=== PATIENT | female | born 1950 | race Caucasian/White ===

== ENCOUNTER 2020-06-27 12:38 | Outpatient (CLI) | payer MEDICARE, OTHER, SELFPAY ==
--- NOTE | ~2020-06-27 | DEXA_ITS ---
Bone Density Report Name: Lesia Webb Age: 70 Sex: Female Ethnicity: White Date of : 1950 Indication: postmenopausal; height loss; hysterectomy; Referring Provider: Lucia Umana Study: Bone densitometry was performed. Exam Date: June 27, 2020 Accession number: [id number] Bone Density: Region BMD T-score Z-score Classification AP Spine (L1, L2) 0.825 -1.4 0.6 Osteopenia Femoral Neck (Left) 0.724 -1.1 0.7 Osteopenia Total Hip (Left) 0.824 -1.0 0.6 Normal Total Hip Bilateral Avg 0.807 -1.2 0.5 Osteopenia Femoral Neck (Right) 0.719 -1.2 0.7 Osteopenia Total Hip (Right) 0.789 -1.3 0.3 Osteopenia World Health Organization criteria for BMD impression classify patients as: Normal (T-score at or above -1.0), Osteopenia (T-score between -1.0 and -2.5), or Osteoporosis (T-score at or below -2.5). 10-year Fracture Risk: FRAX not reported because: Treated for osteoporosis Clinical Information Provided by Patient: Is being treated for osteoporosis Has the following medical conditions: Hysterectomy Patient maximum height was 62 Menopause Age: 48 No regular weight bearing exercise Drinks caffeinated beverages Onset of menses at age 11 Number of children 2 Impression: The patient has low bone mass, based on the Total Spine T-score. Discussion: It is important to ask patients whether they are taking their medications and to encourage continued and appropriate compliance with their osteoporosis therapies to reduce fracture risk. It is also important to review their risk factors and encourage appropriate calcium and vitamin D intakes, exercise, fall prevention and other lifestyle measures. Follow-Up: Consider a repeat BMD and Vertebral Fracture Assessment (VFA) exam in 2 years or sooner if medically necessary, to reassess this patient's status. Reported by: [facility] on 06/27/2020 1:04:00 PM. Reviewed, dictated and finalized at location AJuan Pablo CHAVEZ
== END 2020-06-27 12:39 | disposition home or self-care (01) ==
LOC: ANHIMG 12:44
PROVIDERS: Visit Provider Internal Medicine Endocrinology, Diabetes & Metabolism
DX: Z78.0 Asymptomatic menopausal state (principal); M85.852 Other specified disorders of bone density and structure, left thigh; M85.851 Other specified disorders of bone density and structure, right thigh; M85.88 Other specified disorders of bone density and structure, other site
CPT/HCPCS: 77080

== ENCOUNTER 2020-12-27 12:06 | Outpatient (CLI) | payer MEDICARE, OTHER, SELFPAY ==
[2020-12-27 12:56] LABS: Cholesterol 202 mg/dL (0-200); HDL Direct 92 mg/dL; Triglycerides 108 mg/dL (<150)
[2020-12-27 13:07] LABS: LDL Cholesterol Direct 83 mg/dL
== END 2020-12-27 12:07 | disposition home or self-care (01) ==
PROVIDERS: Visit Provider Internal Medicine Cardiovascular Disease
DX: E78.5 Hyperlipidemia, unspecified (principal)
CPT/HCPCS: 36415; 80061

== ENCOUNTER 2023-03-04 15:04 | Outpatient (CLI) | payer MEDICARE, OTHER, SELFPAY ==
[2023-03-04 17:42] LABS: Albumin Level 4.3 g/dL (3.5-5.1); Anion Gap 9 mmol/L (8-16); Blood Urea Nitrogen 19 mg/dL (7-17); Calcium 9.5 mg/dL (8.4-10.2); Carbon Dioxide 24 mmol/L (22-30); Chloride 107 mmol/L (98-107); Estimated Glomerular Filt Rate > 60; Glucose 89 mg/dL (65-110); Phosphorus 3.2 mg/dL (2.5-4.5); Potassium 4.1 mmol/L (3.4-5.0); Sodium 140 mmol/L (137-145)
[2023-03-04 17:55] LABS: Parathyroid Intact 96.5 pg/mL (7.5-53.5)
[2023-03-04 18:09] LABS: Free T4 Free Thyroxine 1.84 ng/mL (0.78-2.19); Vitamin D 25 Hydroxy 65.1 ng/mL
[2023-03-04 18:13] LABS: Thyroid Stimulating Hormone < 0.015 uIU/mL (0.465-4.680)
[2023-03-04 18:45] LABS: Hemoglobin A1C 5.4 % (<5.7)
== END 2023-03-04 15:05 | disposition home or self-care (01) ==
LOC: ANHWCLAB 15:06
PROVIDERS: Visit Provider Internal Medicine Endocrinology, Diabetes & Metabolism
DX: E03.9 Hypothyroidism, unspecified (principal); M81.0 Age-related osteoporosis without current pathological fracture; R79.89 Other specified abnormal findings of blood chemistry; Z83.3 Family history of diabetes mellitus
CPT/HCPCS: 36415; 80069; 82306; 83036; 83970; 84439; 84443

== ENCOUNTER 2023-03-10 10:13 | Outpatient (CLI) | payer MEDICARE, OTHER, SELFPAY ==
[2023-03-10 11:41] LABS: Creatinine Urine 73.9 mg/dL
[2023-03-10 11:55] LABS: Creatinine 24 Hour Urine 0.8 gm/24 (0.8-1.8); Total Volume 24 Hour Urine 1200 ml
[2023-03-15 14:05] LABS: Total Volume 1200 mL; Urine Calcium 4.7 mg/dL
== END 2023-03-10 10:14 | disposition home or self-care (01) ==
LOC: ANHLAB 10:15
PROVIDERS: Visit Provider Internal Medicine Endocrinology, Diabetes & Metabolism
DX: E03.9 Hypothyroidism, unspecified (principal); M81.0 Age-related osteoporosis without current pathological fracture; R79.89 Other specified abnormal findings of blood chemistry
CPT/HCPCS: 81050; 82340; 82570

== ENCOUNTER 2023-03-17 09:36 | Outpatient (CLI) | payer MEDICARE, OTHER, SELFPAY ==
--- NOTE | ~2023-03-17 | NM_ITS ---
EXAMINATION: NM parathyroid w imaging DATE: 03/17/2023 14:37 INDICATION: Hyperparathyroidism. TECHNIQUE: 18.77 mCi Tc99m sestamibi was administered intravenously. Anterior images of the neck were obtained immediately and at 3 hours. SPECT images of the neck were obtained. COMPARISON: None. FINDINGS: There is no focus of persistent activity in the area of the thyroid or mediastinum to sugge st parathyroid adenoma. IMPRESSION: 1. No evidence of a parathyroid adenoma. Reviewed, dictated and finalized at location E. UME RENTAL CLERK
== END 2023-03-17 09:37 | disposition home or self-care (01) ==
PROVIDERS: Visit Provider Internal Medicine Endocrinology, Diabetes & Metabolism
DX: E03.9 Hypothyroidism, unspecified (principal); M81.0 Age-related osteoporosis without current pathological fracture; R79.89 Other specified abnormal findings of blood chemistry
CPT/HCPCS: 78070; A9500

== ENCOUNTER 2023-07-02 10:55 | Outpatient (CLI) | payer MEDICARE, OTHER, SELFPAY ==
[2023-07-02 12:17] LABS: Thyroid Stimulating Hormone 0.235 uIU/mL (0.465-4.680)
[2023-07-02 12:40] LABS: Free T4 Free Thyroxine 1.47 ng/mL (0.78-2.19)
== END 2023-07-02 10:56 | disposition home or self-care (01) ==
LOC: ANHLAB 11:02
PROVIDERS: Visit Provider Internal Medicine Endocrinology, Diabetes & Metabolism
DX: E03.9 Hypothyroidism, unspecified (principal)
CPT/HCPCS: 36415; 84439; 84443

== ENCOUNTER 2023-07-13 12:48 | Outpatient (CLI) | payer MEDICARE, OTHER, SELFPAY ==
[2023-07-13 13:36] LABS: Albumin Level 4.5 g/dL (3.5-5.1); Anion Gap 7 mmol/L (4-12); Blood Urea Nitrogen 17 mg/dL (7-17); Calcium 10.1 mg/dL (8.4-10.2); Carbon Dioxide 26 mmol/L (22-30); Chloride 103 mmol/L (98-107); Estimated Glomerular Filt Rate 54; Glucose 89 mg/dL (65-110); Phosphorus 3.6 mg/dL (2.5-4.5); Potassium 3.9 mmol/L (3.4-5.0); Sodium 136 mmol/L (137-145)
[2023-07-13 13:43] LABS: Creatinine Urine 32.9 mg/dL
[2023-07-13 13:47] LABS: Creatinine 24 Hour Urine 0.7 gm/24 (0.8-1.8); Total Volume 24 Hour Urine 2200 ml
[2023-07-13 13:48] LABS: Parathyroid Intact 43.1 pg/mL (7.5-53.5)
[2023-07-13 14:07] LABS: Vitamin D 25 Hydroxy 59.8 ng/mL
[2023-07-15 15:03] LABS: Albumin 4.1 g/dL (3.8-4.8); Alpha 1 Globulin 0.3 g/dL (0.2-0.3); Alpha 2 Globulin 0.7 g/dL (0.5-0.9); Beta 1 Globulin 0.5 g/dL (0.4-0.6); Gamma Globulin 1.1 g/dL (0.8-1.7)
[2023-07-15 15:13] LABS: Creatinine, Random Urine 35 mg/dL (20-275); Total Protein/Creatinine Ratio NOTE mg/g creat (24-184)
[2023-07-18 20:53] LABS: Osteocalcin 19 ng/mL (8-32)
[2023-07-30 11:28] LABS: Total Volume 2200
== END 2023-07-13 12:49 | disposition home or self-care (01) ==
PROVIDERS: Visit Provider Internal Medicine Endocrinology, Diabetes & Metabolism
DX: E03.9 Hypothyroidism, unspecified (principal); E55.9 Vitamin D deficiency, unspecified; M81.0 Age-related osteoporosis without current pathological fracture; R79.89 Other specified abnormal findings of blood chemistry; Q78.2 Osteopetrosis
CPT/HCPCS: 36415; 80069; 81050; 82306; 82340; 82530; 82570; 83937; 83970; 84155; 84156; 84165; 84166

== ENCOUNTER 2023-09-24 13:09 | Outpatient (CLI) | payer MEDICARE, OTHER, SELFPAY ==
[2023-09-24 15:16] LABS: Free T4 Free Thyroxine 1.25 ng/mL (0.78-2.19)
[2023-09-24 15:34] LABS: Thyroid Stimulating Hormone 0.923 uIU/mL (0.465-4.680)
== END 2023-09-24 13:10 | disposition home or self-care (01) ==
PROVIDERS: Visit Provider Internal Medicine Endocrinology, Diabetes & Metabolism
DX: E03.9 Hypothyroidism, unspecified (principal)
CPT/HCPCS: 36415; 84439; 84443

== ENCOUNTER 2023-12-28 08:47 | Outpatient (CLI) | payer MEDICARE, OTHER, SELFPAY ==
[2023-12-28 09:38] LABS: Albumin Level 4.6 g/dL (3.5-5.1); Anion Gap 10 mmol/L (4-12); Blood Urea Nitrogen 20 mg/dL (7-17); Calcium 9.7 mg/dL (8.4-10.2); Carbon Dioxide 25 mmol/L (22-30); Chloride 104 mmol/L (98-107); Estimated Glomerular Filt Rate 54; Glucose 90 mg/dL (65-110); Phosphorus 2.9 mg/dL (2.5-4.5); Sodium 139 mmol/L (137-145)
[2023-12-28 10:37] LABS: Free T4 Free Thyroxine 0.88 ng/mL (0.78-2.19); Vitamin D 25 Hydroxy 93.6 ng/mL
[2023-12-30 07:35] LABS: C-Peptide 2.84 ng/mL (0.80-3.85)
[2024-01-02 22:03] LABS: Osteocalcin 24 ng/mL (8-32)
== END 2023-12-28 08:48 | disposition home or self-care (01) ==
PROVIDERS: Visit Provider Internal Medicine Endocrinology, Diabetes & Metabolism
DX: R79.89 Other specified abnormal findings of blood chemistry (principal); E03.9 Hypothyroidism, unspecified; M81.0 Age-related osteoporosis without current pathological fracture
CPT/HCPCS: 36415; 80069; 82306; 83937; 84439; 84443; 84681

== ENCOUNTER 2024-07-10 13:10 | Outpatient (CLI) | payer MEDICARE, OTHER, SELFPAY ==
--- OUTSIDE RECORDS SUMMARY | 2024-07-10 14:27 | XMS_ITS | Clinical Summary ---
Author Organization [facility] Address [address] [place] [id number] Care Team Providers Care Soft Sugar Operator Head Name Role Phone Rufino Randolph MD Unavailable Marilee Carvalho MD Primary Care Provider [phone] Allergies Active Allergy Reactions Criticality Noted Date Comments Amoxicillin Rash Medium 12/30/2018 Cephalexin Rash Medium 12/30/2018 Codeine Stomach upset,Hypotension High 05/14/2022 Sulfa (Sulfonamide Antibiotics) Rash Medium 12/30/2018 Medications sertraline (ZOLOFT) 100 mg tablet Take 1 tablet (100 mg total) by mouth every morning 9 Active SYNTHROID 88 mcg tablet Take 1 tablet (88 mcg total) by mouth every other day Alternates with 100 mcg 9 Active cetirizine (ZyrTEC) 10 mg tablet Take 1 tablet (10 mg total) by mouth nightly 9 Active atorvastatin (LIPITOR) 80 mg tablet Take 1 tablet (80 mg total) by mouth daily. 90 tablet 3 9 Active Additional Information Patient taking differently:80 mg oralNightly, Informant: Self, Reported on 02/21/2024 fluticasone (FLONASE) 50 mcg/actuation nasal spray Administer 2 sprays into each nostril every morning Active multivit-mineral s/folic acid (ADULT MULTIVITAMIN GUMMIES ORAL) Take 2 tablets by mouth every morning. Active vit C/E/Zn/coppr/lut ein/zeaxan (PRESERVISION AREDS-2 ORAL) Take 1 tablet by mouth 2 (two) times a day. Active flaxseed 1,000 mg capsule Take 1,000 mg by mouth every morning. Active aspirin 81 mg enteric coated tablet [address] (PROTONIX) 40 mg EC tablet 3 Active cholecalciferol (VITAMIN D-3) 82157 unit capsule Take 1 capsule (10,000 Units total) by mouth daily Active calcium carbonate (TUMS) 500 mg (200 mg elemental calcium) chewable tablet Take 2 tablet/chew tab (1,000 mg total) by mouth daily Active calcium citrate (CALCITRATE) 950 mg (200 mg of elemental calcium) tablet Take 500 mg by mouth 2 (two) times a day Active romosozumab-aqqg (Evenity) 105 mg/1.17 mL subcutaneous syringe Inject 2.34 mL (210 mg total) under the skin once Active Active Problems Problem Noted Date Diagnosed Date Palpitations 12/27/2020 Ptosis of eyelid, left 05/13/2018 Overview (05/13/2018): Added automatically from request for surgery [id number] Primary osteoarthritis of left knee 04/26/2018 Preop cardiovascular exam 04/15/2018 Essential hypertension 04/15/2018 Hyperlipidemia LDL goal <100 04/15/2018 Hypothyroidism 04/15/2018 Coronary artery disease invo lving [place] coronary artery of [place] heart without angina pectoris 04/15/2018 Resolved Problems Problem Noted Date Diagnosed Date Resolved Date Class 1 obesity due to exces s calories without serious comorbidity with body mass index (BMI) of 34.0 to 34.9 in adult 04/15/201803/2020 Surgical History Surgery Date Site/Laterality Comments CARPAL TUNNEL RELEASE Right BUNIONECTOMY HYSTERECTOMY REPLACEMENT TOTAL KNEE Right TITUS FUNDOPLICATION REPLACEMENT TOTAL KNEE 04/26/2018 Left Medical History Medical History Date Comments Hypertension Hypertension Adiposity Obesity Hx Other Medical Arrhythmias (pr ob SVT/tachyarrhythmia) Hypothyroidism Hypothyroidism Hyperlipidemia Diverticulitis Anemia Cataracts, bilateral Anxiety and depression Family History Medical History Relation Name Comments Kidney cancer Father Stroke Mother Kidney cancer Sister Relation Name Status Comments Father (Age 59) Mother (Age 93) Sister Alive Social History Tobacco Use Types Packs/Day Years Used Date Smoking Tobacco: Never Smokeless Tobacco: Never Tobacco Cessation:Counseling Given: Not Answered Alcohol Use Standard Drinks/Week Comments No 0 (1 standard drink = 0.6 oz pur e alcohol) Comments Unknown Sex and Gender Information Value Date Recorded Sex Assigned at Not on file Legal Sex Female 2:21 AM DIGITAL LIBRARIAN Gender Identity Not on file Sexual Orientation Not on file Obstetrics History Last Filed Vital Signs Vital Sign Reading Time Taken Comments Blood Pressure 138/88 02/21/2024 11:12 AM DIGITAL LIBRARIAN Pulse 72 02/21/2024 9:42 AM DIGITAL LIBRARIAN Temperature - - Respiratory Rate - - Oxygen Saturation 99% 02/21/2024 9:42 AM DIGITAL LIBRARIAN Inhaled Oxygen Concentration - - Weight 76.7 kg (169 lb) 02/21/2024 9:42 AM DIGITAL LIBRARIAN Height 154.9 cm (5' 1 ) 02/21/2024 9:42 AM DIGITAL LIBRARIAN Body Mass Index 31.93 02/21/2024 9:42 AM DIGITAL LIBRARIAN Plan of Treatment Health Maintenance Due Date Last Done Comments Colon Cancer Screening-Colonoscopy 1950 Depression Screening 1950 Fall Risk Assessment 1950 Hepatitis C Screening 1950 Hepatitis B Screening 1967 Well Visit 65+ 2014 Covid-19 Vaccine (2023-2 5 season) 2023 02/17/2021, 05/29/2020, 05/01/2020 Osteoporosis Screening-Bone Density Scan 05/25/2026 05/25/2024 DTaP/Tdap/Td Vaccine (3 - Td or Tdap) 04/15/2032 04/15/2022, 03/24/2012, 03/06/2002 Pneumococcal vaccine 65+ Completed 10/19/2014, 03/30 Zoster Vaccine Completed 06/26/2020, 02/26, 02/22/2012 Influenza Vaccine Completed 03/16/2024, , 01/09/2020, Additional history exists Insurance MEDICARE FOR LIFE MEDICARE FOR LIFE MEDICARE FOR LIFE MEDICARE FOR LIFE Care Teams Soft Sugar Operator Head Relationship Specialty Start [place] [address] [place] [address] PCP - General Internal Medicine 06/19/24 Rufino Randolph MD Referring Physician Internal Medicine 12/13/17
--- OUTSIDE RECORDS SUMMARY | 2024-07-10 14:27 | XMS_ITS | Clinical Summary ---
Author Organization [facility] Address [address] [place] [address] Care Team Providers Care Retail Merchandising Specialist Name Role Phone Juan R Sosa MD Unavailable Unavailable Marilee Carvalho MD Primary Care Provider [phone] Allergies Active Allergy Reactions Criticality Noted Date Comments Amoxicillin Rash Low 12/30/2018 Codeine Other (see comment) 05/13/2023 Hypotension Cephalexin Rash Low 12/30/2018 Sulfa Antibiotics Rash Low 12/30/2018 Medications Multiple Vitamins-Calcium (ONE-A-DAY WOMENS FORMULA) Tab Take 2 tablets by mouth daily. Active Flaxseed, Linseed, (FLAXSEED OIL) 1000 MG Cap Take 1,000 mg by mouth daily. Active Multiple Vitamins-Minerals (PRESERVISION AREDS 2) Cap Take 2 capsules by mouth daily. Active calcium citrate 950 (200 CA) MG Tab tablet Take 500 mg by mouth 2 (two) times daily. Active calcium carbonate (TUMS) 500 MG chewable tablet Chew 2 tablets (1,000 mg total) by mouth daily. Active BONE STIMULATOR, DME,Indications:F usion of spine of thoracolumbar region,Osteoporos is, unspecified osteoporosis type, unspecified pathological fracture presence Wear 4 hours daily. Can break up into multiple sessions totaling 4 hours. 1 Device 06/07/19 24 Active Additional Information Patient not taking.Reported on 06/28/2024 Cholecalciferol 250 MCG (18305 UT) Cap Take 10,000 Units by mouth daily. Active romosozumab-aqqg (EVENITY) 105 MG/1.17ML Solution Prefilled Syringe injection Inject 2.34 mLs (210 mg total) into the skin once. STATED EVERY 4 WEEKS Active clindamycin (CLEOCIN) 300 MG capsule 03/07/20 24 Active pantoprazole EC (PROTONIX) 40 MG tabletIndications :Gastroesophageal reflux disease without esophagitis Take 1 tablet (40 mg total) by mouth daily as needed. 90 tablet 3 03/16/20 24 Active levothyroxine (SYNTHROID) 88 MCG tabletIndications :takes 6 days a week NOT ON WEDNESDAY Take 1 tablet (88 mcg total) by mouth every morning. Indications: takes 6 days a week NOT ON WEDNESDAY 90 tablet 3 03/16/20 24 Active cetirizine (ZYRTEC) 10 MG tabletIndications :Seasonal allergies Take 1 tablet (10 mg total) by mouth daily as needed for Allergies. 90 tablet 3 03/16/20 24 Active aspirin EC (ECOTRIN) 81 MG tabletIndications :Coronary artery disease involving kasaan coronary artery of kasaan heart without angina pectoris Take 1 tablet (81 mg total) by mouth daily. 90 tablet 3 03/16/20 24 025 Active fluticasone propionate (FLONASE) 50 MCG/ACT nasal sprayIndications: Seasonal allergies 2 sprays by Nasal route daily. 64 mL 04/20/19 25 026 Active orphenadrine ER (NORFLEX) 100 MG TABLET SR 12 HR 12 hr tabletIndications :Myofascial low back pain Take 1 tablet (100 mg total) by mouth 2 (two) times daily as needed. 60 tablet 2 05/18/19 25 Active sertraline (ZOLOFT) 100 MG tabletIndications :Anxiety associated with depression Take 1 tablet (100 mg total) by mouth daily. 90 tablet 07/07/19 25 Active atorvastatin (LIPITOR) 80 MG tabletIndications :Coronary artery disease involving kasaan coronary artery of kasaan heart without angina pectoris Take 1 tablet (80 mg total) by mouth nightly at bedtime. Until receives from other pharmacy. 90 tablet 1 07/08/19 25 Active atorvastatin (LIPITOR) 80 MG tabletIndications :Coronary artery disease involving kasaan coronary artery of kasaan heart without angina pectoris Take 1 tablet (80 mg total) by mouth nightly at bedtime. 90 tablet 3 03/16/20 24 025 Discontinu ed(Reorder ) sertraline (ZOLOFT) 100 MG tabletIndications :Anxiety associated with depression Take 1 tablet (100 mg total) by mouth daily. 90 tablet 04/20/19 25 025 Discontinu ed(Reorder ) nitrofurantoin, macrocrystal-mono hydrate, (MACROBID) 100 MG capsuleIndication s:UTI symptoms,Acute cystitis with hematuria Take 1 capsule (100 mg total) by mouth 2 (two) times daily for 10 days. 20 capsule 06/06/19 25 025 doxycycline hyclate (VIBRAMYCIN) 100 MG capsuleIndication s:Hordeolum externum of right upper eyelid Take 1 capsule (100 mg total) by mouth 2 (two) times daily for 10 days. 20 capsule 06/29/19 25 025 ofloxacin (OCUFLOX) 0.3 % ophthalmic solutionIndicatio ns:Hordeolum externum of right upper eyelid Place 1 drop into both eyes 4 (four) times daily for 10 days. 5 mL 06/29/19 25 025 atorvastatin (LIPITOR) 80 MG tabletIndications :Coronary artery disease involving kasaan coronary artery of kasaan heart without angina pectoris Take 1 tablet (80 mg total) by mouth nightly at bedtime. Until receives from other pharmacy. 10 tablet 07/07/19 25 025 Discontinu ed(Reorder ) Active Problems Problem Noted Date Diagnosed Date Hypothyroidism, unspecified type 03/16/2024 Anxiety associated with depression 03/16/2024 Osteoporosis without current pathological fracture, unspecified osteoporosis type 03/16/2024 Seasonal allergies 03/16/2024 Vitreous detachment of both eyes 03/16/2024 Coronary artery disease invo lving kasaan coronary artery of kasaan heart without angina pectoris 03/16/2024 Skin rash 03/16/2024 Myofascial low back pain 07/09/2023 Fusion of spine of thoracolumbar region 06/07/19 24 Burst fracture of lumbar sarahi tebra, closed, initial encounter ([facility]) 05/20/2023 Screening for colon cancer 11/26/2021 Overview (11/26/2021): Added automatically from request for surgery [id number] Hx of colonic polyps 11/26/2021 Overview (11/26/2021): Added automatically from request for surgery [id number] Gastroesophageal reflux disease without esophagi tis 11/26/2021 Overview (11/26/2021): Added automatically from request for surgery [id number] Esophageal dysphagia 11/26/2021 Overview (11/26/2021): Added automatically from request for surgery [id number] Resolved Problems Problem Noted Date Diagnosed Date Resolved Date Need for immunization against influenza 03/16/2024 03/20/2024 Thoracic spine instability 05/20/2023 0 06/07/2023 Encounters Date Type Department Care Team Description 07/06/2024 Orders Only [facility] Internal [address] [phone] Marilee Carvalho MD 06/28/2024 1:20 PM CDT Office Visit [address] [phone] Ayse Gray, PA Eye Problem (Pt has a bump on right eye lid, itched only at the beginning, entire eye swollen when it started /) 06/28/2024 Travel 06/05/2024 5:08 PM CDT - 06/05/2024 11:59 PM CDT Hospital Encounter [facility] [address] [place] [id number] Ayse Gray, PA Discharge Disposition: Home or Self Care (Routine Discharge) 06/05/2024 1:20 PM CDT Office Visit [address] [phone] Ayse Gray, PA UTI (Pt c/o poss UTI, having urgency and cloudy urine /) 06/05/2024 Travel 05/25/2024 2:26 PM LINING CLOSER - 05/25/2024 11:59 PM LINING CLOSER Hospital Encounter [facility] Diagnostic Imaging [address] [place] [id number] Lucia Umana MD Discharge Disposition: Home or Self Care (Routine Discharge) 05/25/2024 Travel 05/18/2024 3:00 PM LINING CLOSER Office Visit [facility] [address] [facility], [address] [place] [address] Agnes Begum GAME PROTECTOR Follow Up (F/U with 2 CT scans ) 05/18/2024 Travel 05/17/2024 8:35 AM LINING CLOSER - 05/17/2024 11:59 PM LINING CLOSER Hospital Encounter [facility] [address] [place] [address] Agnes Begum, GAME PROTECTOR Discharge Disposition: Home or Self Care (Routine Discharge) 05/17/2024 Travel 05/08/2024 Scan HEALTH INFO SRVCS Scanned, [facility] 04/20/2024 Orders Only [facility] Family & Internal Medicine [address] [phone] Marilee Carvalho MD 04/20/2024 Telephone [facility] Family [facility] Internal Medicine [address] [phone] Marilee Carvalho MD Medication from Last 3 Months Immunizations Immunization Administration Dates Next Due Arexvy Respiratory Syncytial Virus (RSV, adjuvanted) 0.5 mL, PF 03/31/2023 Fluzone High Dose (IIV, triv alent, 0.5mL) 03/16/2024 Fluzone High Dose - >Age 65 (Prefilled Syringe) 02/26/2022,01/09/2020,01/09/2020 Influenza (Generic) 04/03/2016, 3,03/24/2012,2002,03/06/2002 Influenza Adult (Generic) 01/16/2021,,03/04/2018,2016,04/10/2015,04/19/2014 MODERNA COVID-19 (12+) MRNA, LNP-S, PF, 100 MCG/ 0.5 ML DOSE 05/29/2020,05/01/2020 Pneumococcal (Pneumovax 23) 10/19/2014 Pneumococcal (Prevnar 13) 04/19/2014 Shingrix 06/26/2020,03/15/2020 Td (TDVAX) 04/15/2022,03/06/2002 Tdap (Generic) 03/24/2012 Zoster (Zostavax) [address] Unt/0.65Ml 02/22/2012 Family History Medical History Relation Comments Multiple Sclerosis Daughter Cancer Father Diabetes Mother Cancer Sister 1 Cancer Sister 2 Diabetes Son Obesity Son Relation Status Comments Daughter Alive Father Mother Sister 1 Sister 2 Alive Son Alive Social History Tobacco Use Types Packs/Day Years Used Date Smoking Tobacco: Never Smokeless Tobacco: Never Tobacco Cessation:Counseling Given: No Alcohol Use Standard Drinks/Week Comments No 0 (1 standard drink = 0.6 oz pur e alcohol) [facility] Wardrobe Housekeeperities Answer Date Recorded In the past 12 months has BATS, oil, or water GoYoDe[employer] threatened to shut off services in your home? No 05/20/2023 Humiliation, Afraid, Rape, and Kick questionnair e Answer Date Recorded Within the last year, have y ou been afraid of your partner or ex-partner? No 05/20/2023 Within the last year, have y ou been humiliated or emotionally abused in other ways by your partner or ex-partner? No Within the last year, have y ou been kicked, hit, slapped, or otherwise physically hurt by your partner or ex-partner? No 05/20/2023 Within the last year, have y ou been raped or forced to have any kind of sexual activity by your partner or ex-partner? No 05/20/2023 AUDIT-C Answer Date Recorded Frequency of Alcohol Consumption Never 12/30/2018 Average Number of Drinks Not on file 019 Frequency of Binge Drinking Not on file 06/2018 Overall Financial Resource Strain (CARDIA) Answe r Date Recorded How hard is it for you to pa y for the very basics like food, housing, medical care, and heating? Not hard at all 05/20/2023 PHQ-2 Answer Date Recorded Patient Health Questionnaire-2 Score 0 05/18/2024 [facility] [place] [facility] Occupat ional Health - Occupational Stress Questionnaire Answer Date Recorded Do you feel stress - tense, restless, nervous, or anxious, or unable to sleep at night because your mind is troubled all the time - these days? Not at all 05/20/2023 Exercise Vital Sign Answer Date Recorde d On average, how many days pe r week do you engage in moderate to strenuous exercise (like a brisk walk)? 0 days 05/20/2023 On average, how many minutes do you engage in exercise at this level? 0 min 05/20/2023 Hunger Vital Sign Answer Date Recorded Within the past 12 months, y ou worried that your food would run out before you got the money to buy more. Never true 05/20/19 24 Within the past 12 months, t he food you bought just didn't last and you didn't have money to get more. Never true 05/20/2023 PRAPARE - Transportation Answer Date Re corded In the past 12 months, has l ack of transportation kept you from medical appointments or from getting medications? No 04/30 In the past 12 months, has l ack of transportation kept you from meetings, work, or from getting things needed for daily living? No 05/20/2023 Housing Stability Vital Sign Answer Orville e Recorded In the last 12 months, was t here a time when you were not able to pay the mortgage or rent on time? No 05/20/2023 In the last 12 months, how many places have you lived? 1 05/20/2023 In the last 12 months, was t here a time when you did not have a steady place to sleep or slept in a halfway (including now)? No 05/20/2023 Comments No Sex and Gender Information Value Date Recorded Sex Assigned at Female 05/17/2024 8:29 AM LINING CLOSER Legal Sex Female 12:52 PM CDT Gender Identity Not on file Sexual Orientation Not on file Last Filed Vital Signs Vital Sign Reading Time Taken Comments Blood Pressure 135/84 06/28/2024 1:18 PM CDT Pulse 87 06/28/2024 1:18 PM CDT Temperature 37.1 C (98.8 F) 06/28/2024 1:18 PM CDT Respiratory Rate 17 06/28/2024 1:18 PM CDT Oxygen Saturation 97% 06/28/2024 1:18 PM CDT Inhaled Oxygen Concentration - - Weight 82.1 kg (181 lb) 06/28/2024 1:18 PM CDT Height 149.9 cm (4' 11 ) 06/28/2024 1:18 PM CDT Body Mass Index 36.56 06/28/2024 1:18 PM CDT Plan of Treatment Upcoming Encounters Date Type Department Care Team (Late st Contact Info) Description 10/12/2024 9:20 AM CDT Office Visit [facility] Family & Internal Medicine - [place] [id number] [place] [phone] [place] [phone] [address] Health Maintenance Due Date Last Done Comments Hepatitis C 1968 Annual Medicare Wellness Visit 2014 COVID-19 Vaccine (2023-2 5 season) 2023 02/17/2021, 05/29/2020, 05/01/2020 Colorectal Cancer Screening Colonoscopy (10 Years) 02/07/2032 02/06/2022, 02/04/2017 DTaP, Tdap and Td Vaccines ( 3 - Td or Tdap) 04/15/2032 04/15/2022, 03/24/2012, 03/06/2002 Pneumococcal Vaccine: 50+ Years Completed 10/19/2014, 04/19/2014 Zoster Vaccines Completed 06/26/2020, 03/15/2020, 02/22/2012 RSV Immunization or 60+ Years Completed 03/31/2023 PHQ-2 (Physician [place]) Completed 05/18/2024 Dexa Scan (General) Completed 05/25/2024, 04/15/2022, 04/15/2022 Meningococcal B Vaccine Aged Out No l onger eligible based on patient's age to complete this topic Meningococcal Vaccine Aged Out No alexandra nneka eligible based on patient's age to complete this topic RSV Immunizations Under 20 Months Aged Out No longer eligible b ased on patient's age to complete this topic Goals Goal Patient Goal Type Associated Problems Recent Progress Patient-Stated? Author Health - patient able to perform ADLs independently Lifestyle No Isabel Mary, LONG TERMpatient safety officer Devices Implanted Type Area Piano Case Maker Device Identifier Shelf Expiration Date Model / Serial / Lot Graft Bone Infuse Medtronic Large Kit - [id number] Implanted:Qt y: 1 on 05/21/2023 by Kulwinder Almaraz MD at [facility] Bone N/A: Spine Lumbar [employer] [id number] 09/26/2024 [id number] / / [id number] Filler Bone 5cc 12.5cc Calcium Sulfate Stimulan Rapid Cure - [id number] Implanted:Qt y: 1 on 05/21/2023 by Kulwinder Almaraz MD at [facility] Bone N/A: Spine Lumbar [employer] [id number] 04/28/2025 [id number] / / [id number] Description:SOAKED IN TOBRAM YCIN AND VANCOMYCIN Implant Magnifuse Bone Graft 1 X 10cm - [id number] Implanted:Qt y: 1 on 05/21/2023 by Kulwinder Almaraz MD at [facility] Bone N/A: Spine Lumbar [employer] SPINAL [employer] BI[employer] [id number] 12/20/2024 [id number] / [id number] / Implant Magnifuse Bone Graft 1 X 5cm - [id number] Implanted:Qt y: 1 on 05/21/2023 by Kulwinder Almaraz MD at [facility] Bone N/A: Spine Lumbar [employer]TR[employer] XOMED [employer] - DIV [id number] 11/01/2024 [id number] / [id number] / Vertaplex Hv Bone Cement Implanted:Qt y: 1 on 05/21/2023 by Kulwinder Almaraz MD at [facility] Cement Implant N/A: Spine Lumbar [employer] DIV MEGAN ROLDAN [id number] 01/26/2025 [id number] / / [id number] Vertaplex Hv Bone Cement Implanted:Qt y: 1 on 05/21/2023 by Kulwinder Almaraz MD at [facility] Cement Implant N/A: Spine Lumbar [employer]OLD[employer] [id number] 06/26/2024 [id number] / / [id number] 5.5 X 500 Mm Kameron Implanted:Qt y: 1 on 05/21/2023 by Kulwinder Almaraz MD at [facility] Kameron N/A: Spine Lumbar [employer] SP[employer] [id number] / / Solera Set Screws Implanted:Qt y: 10 on 05/21/2023 by Kulwinder Almaraz MD at [facility] Screw N/A: Spine Lumbar [employer] [id number] / / 4.5 X 35 Mm Screw Implanted:Qt y: 1 on 05/21/2023 by Kulwinder Almaraz MD at [facility] Screw N/A: Spine Lumbar [employer] [id number] / / 4.5 X 40 Mm Screw Implanted:Qt y: 4 on 05/21/2023 by Kulwinder Almaraz MD at [facility] Screw N/A: Spine Lumbar [employer] [id number] / / 4.5 X 45 Mm Screws Implanted:Qt y: 2 on 05/21/2023 by Kulwinder Almaraz MD at [facility] Screw N/A: Spine Lumbar [employer] [id number] / / 5.5 X 40 Mm Screw Implanted:Qt y: 1 on 05/21/2023 by Kulwinder Almaraz MD at [facility] Screw N/A: Spine Lumbar [employer] [id number] / / 5.5 X 25 Mm Screw Implanted:Qt y: 2 on 05/21/2023 by Kulwinedr Almaraz MD at [facility] Screw N/A: Spine Lumbar [employer] [id number] / / Kit Case 4.2mm Eugenio - [id number] Implanted:Qt y: 2 on 05/21/2023 [facility] Spine Lumbar [employer] DIV MEGAN ROLDAN [id number] / / Procedures Procedure Name Priority Date/Time Associated Diagnosis Comments URINE BACTERIA CULTURE Routine 06/05/2024 1:26 PM CDT UTI symptoms Acute cystitis with hematuria URINALYSIS AUTO DIP Routine 06/05/2024 UTI symptoms Acute cystitis with hematuria BONE DENSITY/DEXA Routine 05/25/2024 3:1 2 PM LINING CLOSER Asymptomatic menopausal state Age-related osteoporosis without current pathological fracture CT THOR SPINE WO CON Routine 05/17/2024 8:49 AM LINING CLOSER Fusion of spine of thoracolumbar region CT LUMB SPINE WO CON Routine 05/17/2024 8:49 AM LINING CLOSER Fusion of spine of thoracolumbar region COLONOSCOPY GENERIC (SCAN ORDER) 02/04/2017 from Last 3 Months or Most Recently Relevant to Health Maintenance Results * (ABNORMAL) URINE BACTERIA CULTURE (06/05/2024 1:26 PM CDT) SPEC DESCRIPTION URINE CLEAN CATCH 06/05/2024 5:08 PM CDT [facility] SPECIAL REQUESTS NO SPECIAL REQUEST 06/05/2024 5:08 PM CDT [facility] CULTURE RESULT >100,000 COL/ML ESCHERICHIA COLI (A) 06/07/2024 8:16 AM CDT [facility] URINE SPECIMEN OBTAINED BY CLEAN CATCH PROCEDURE / Unknown 06/05/2024 1:26 PM CDT 06/05/2024 5:14 PM CDT Narrative Organism Antibiotic Method Susceptibility Escherichia coli AMPICILLIN QUINTIN (VITEK) 4: Sensitive Escherichia coli AMPICILLIN/SULBACTAM QUINTIN (VITEK) <=2: Sensitive Escherichia coli CEFTRIAXONE QUINTIN (VITEK) <=1: Sensitive Escherichia coli CEFTAZIDIME QUINTIN (VITEK) <=1: Sensitive Escherichia coli CEFAZOLIN QUINTIN (VITEK) <=4: Sensitive Escherichia coli ESBL QUINTIN (VITEK) NEG: Sensitive Escherichia coli NITROFURANTOIN QUINTIN (VITEK) 32: Sensitive Escherichia coli GENTAMICIN QUINTIN (VITEK) <=1: Sensitive Escherichia coli LEVOFLOXACIN QUINTIN (VITEK) <=0.12: Sensitive Escherichia coli PIPRACIL/TAZO QUINTIN (VITEK) <=4: Sensitive Escherichia coli TRIMETH-SULFAMETH. QUINTIN (VITEK) <=20: Sensitive Ayse CHURCH MICROBIOLOGY - GENERAL ORDER MAYTE Final Result [facility] [address] [place] [address], [place] [phone] [facility] [address] [place] [address], [place] [phone] * (ABNORMAL) URINALYSIS AUTO DIP (06/05/2024) COLOR (U) YELLOW YELLOW [id number], [place] TRANSPARENCY CLOUDY(A) CLEAR MG-[address], [facility] GLUCOSE (U) NEGATIVE NEGATIVE MG/DL MG-[address], [facility] BILIRUBIN (U) NEGATIVE NEGATIVE MG-[address], [facility] KETONES MG/DL (U) NEGATIVE NEGATIVE MG/DL MG-[address], [place] SPECIFIC GRAVITY (U) 1.015 1.001 - 1.035 MG-[address], [place] BLOOD (U) SMALL (1+, Hemolyzed)(A ) NEGATIVE MG-[address], [place] U PH 6.0 5.0 - 9.0 MG-[address], [facility] PROTEIN (U) NEGATIVE NEGATIVE mg/dL MG-[address], [place] UROBILINOGEN 0.2 0.2 - 1.0 EU/dL = mg/dL MG-[address], [place] NITRITES NEGATIVE NEGATIVE MG/DL MG-[address], [facility] LEUKOCYTES (U) 3+ (LARGE)(A) NEGATIVE MG-[address], [place] URINE SPECIMEN OBTAINED BY CLEAN CATCH PROCEDURE / Unknown 06/05/2024 us Ayse CHURCH URINE ORDERABLES Final Resul t -[id number], [place] [address] [place] [address], * BONE DENSITY/DEXA (05/25/2024 3:12 PM LINING CLOSER) Anatomical Region Laterality Modality Bone Bone Density 05/26/2024 7:48 AM LINING CLOSER Impressions 05/26/2024 7:50 AM LINING CLOSER IMPRESSION: WHO Classification: Osteopenia RECOMMENDATIONS: All patients should ensure an adequate intake of dietary calcium and vitamin D. The NOF recommend adults under the age of 50 need 1000 mg of calcium and 400-800 IU of vitamin D daily. Effective therapy for the prevention and treatment of osteoporosis include bisphosphonates. Follow-up: People with diagnosed cases of osteoporosis or at high risk for fracture should have regular bone mineral density test. For patients eligible for Medicare, routine testing is allowed once every 2 years. Testing frequency can be increased to one year for patients who have rapidly progressing disease, those who are receiving or discontinuing medical therapy to restore bone mass, or have additional risk factors. Referred By: LUCIA UMANA Interpreted By: Hever Amaro MD, 05/26/2024 7:48 AM Narrative 05/26/2024 7:50 AM LINING CLOSER [facility] [address] [place] [address] EXAMINATION: BONE DENSITY/DEXA INDICATIONS: Asymptomatic menopausal state TECHNIQUE: DEXA bone mineral density evaluation was performed in the AP projection over the lumbar spine and both hips utilizing standard imaging techniques. ASSESSMENT: The BMD measured at the AP spine L3-L4 is 1.297 g/cm? with a T-score of 1.8. The BMD measured at the left femoral neck is 0.744 g/cm? with a T-score of -0.9. The BMD measured at the left hip is 0.838 g/cm? with a T-score of -0.8. The BMD measured at the right femoral neck is 0.764 g/cm? with a T-score of - 0.8. The BMD measured at the right hip is 0.910 g/cm? with a T-score of -0.3. The BMD measured at the distal third of right forearm is 0.550 g/cm? with a T- score of -2.3. The BMD measured at the distal right forearm is 0.446 g/cm? with a T-score of - 2.3. FRAX 10-year fracture risk: Not reported as patient is being treated for osteoporosis. Procedure Note Hever Amaro MD - 05/26/2024 [facility] [address] [facility] [place] [address] EXAMINATION: BONE DENSITY/DEXA INDICATIONS: Asymptomatic menopausal state TECHNIQUE: DEXA bone mineral density evaluation was performed in the APprojection over the lumbar spine and both hips utilizing standard imagingtechniques. ASSESSMENT: The BMD measured at the AP spine L3-L4 is 1.297 g/cm? with a T-score of1.8. The BMD measured at the left femoral neck is 0.744 g/cm? with a T-score of-0.9. The BMD measured at the left hip is 0.838 g/cm? with a T-score of -0.8. The BMD measured at the right femoral neck is 0.764 g/cm? with a T-scoreof -0.8. The BMD measured at the right hip is 0.910 g/cm? with a T-score of -0.3. The BMD measured at the distal third of right forearm is 0.550 g/cm? witha T- score of -2.3. The BMD measured at the distal right forearm is 0.446 g/cm? with a T-scoreof - 2.3. FRAX 10-year fracture risk: Not reported as patient is being treated for osteoporosis. IMPRESSION: WHO Classification: Osteopenia RECOMMENDATIONS: All patients should ensure an adequate intake of dietary calcium andvitamin D. The NOF recommend adults under the age of 50 need 1000 mg ofcalcium and 400-800 IU of vitamin D daily. Effective therapy for theprevention and treatment of osteoporosis include bisphosphonates. Follow-up: People with diagnosed cases of osteoporosis or at high risk for fractureshould have regular bone mineral density test. For patients eligible forMedicare, routine testing is allowed once every 2 years. Testing frequencycan be increased to one year for patients who have rapidly progressingdisease, those who are receiving or discontinuing medical therapy torestore bone mass, or have additional risk factors. Referred By: LUCIA UMANA Interpreted By: Hever Amaro MD, 05/26/2024 7:48 AM Lucia Umana MD DEXA Final Result * CT THOR SPINE WO CON (05/17/2024 8:49 AM LINING CLOSER) Anatomical Region Laterality Modality Spine Computed Tomogra phy 05/19/2024 7:53 AM LINING CLOSER Impressions 05/19/2024 8:08 AM LINING CLOSER IMPRESSION: THORACIC SPINE: 1. Status post posterior kameron and pedicle screw fixation at T10-L2. Hardware appears to be intact and unremarkable in alignment with no surrounding lucency. 2. Chronic compression fracture of T12 with 30% loss of height, unchanged. 5 mm retropulsion the posterior superior corner of T12, unchanged. 3. Osteopenia with moderate multilevel disc space narrowing. No acute osseous abnormality or interval change. LUMBAR SPINE: 1. Status post posterior kameron and pedicle screw fixation at T10-L2. There appears to be intact and unremarkable in alignment with no surrounding lucency. 2. Osteopenia with grade 1 anterolisthesis at L4/L5, unchanged. 3. Severe neuroforaminal stenosis on the left at L4/L5 and L5/S1, unchanged. Moderate neural foraminal stenosis on the left at L2/L3 and L3/L4. 4. Severe neuroforaminal stenosis on the right L4/L5 and L5/S1, unchanged. Moderate neural foraminal stenosis on the right at L3/L4. Referred By: AGNES BEGUM Interpreted By: Alexis Alejandro MD, 05/19/2024 7:53 AM Narrative 05/19/2024 8:08 AM LINING CLOSER [address] [address] EXAMINATION:CT of the thoracic and lumbar spine without contrast 05/17/2024 INDICATION:Postoperative follow-up, thoracic and lumbar fusion TECHNIQUE: Axial CT images of the thoracic and lumbar spine were acquired without intravenous contrast. Sagittal coronal reformats were constructed. Radiation dose reduction techniques were used. COMPARISON: CT of the thoracic and lumbar spine 02/07/2024 FINDINGS: LUMBAR SPINE: Osseous structures are diffusely demineralized. Posterior kameron and pedicle screw fixation hardware is noted at T10-L2. Hardware appears to be intact and unremarkable in alignment with no surrounding lucency. There is methylmethacrylate within the central T10, T11, T12, L1 and L2 vertebral bodies. There is a chronic compression fracture of T12 with depression of superior endplate and 30% loss of height, unchanged. There is mild retropulsion the posterior superior corner of T12 measuring 5 mm, unchanged. No bony bridging across the T10-L2 disc spaces. There is a grade 1 anterolisthesis at L4/L5 measuring 7 mm, unchanged. No interval fracture or dislocation. T12/L1: Disc space narrowing arthropathy L1/L2: Disc space narrowing and facet arthropathy L2/L3: Disc space narrowing with small posterior disc/osteophyte complex, facet arthropathy and bilateral foraminal disc/osteophyte complexes causing mild central canal stenosis, moderate left neural foraminal stenosis and mild right neural foraminal stenosis L3/L4: Disc space narrowing disc bulging, facet arthropathy and small bilateral foraminal disc/osteophyte complexes causing moderate bilateral foraminal stenosis L4/L5: Disc space narrowing with grade 1 anterolisthesis, disc bulging and facet arthropathy causing severe bilateral foraminal stenosis, unchanged L5/S1: Disc space narrowing disc bulging and facet arthropathy causing severe bilateral foraminal stenosis, unchanged No paraspinal mass or fluid collection. Visualized abdominal aorta is unremarkable contour. Multiple scattered diverticula are noted throughout the sigmoid colon The sacroiliac joint spaces are unremarkable. THORACIC SPINE: Osseous structures are diffusely demineralized. Posterior kameron and pedicle screw fixation hardware is noted at T10-L2. Hardware appears to be intact and unremarkable in alignment with no surrounding lucency. There is methylmethacrylate within the central T10, T11, T12, L1 and L2 vertebral bodies. There is a chronic compression fracture of T12 with depression of superior endplate and 30% loss of height, unchanged. There is mild retropulsion the posterior superior corner of T12 measuring 5 mm, unchanged. No bony bridging across the T10-L2 disc spaces. There is a 1.1 cm lytic lesion with prior vertical striations noted within the anterior aspect of the T3 vertebral body, compatible with a hemangioma, unchanged no acute fracture or dislocation. There is moderate multilevel disc space narrowing. No significant bony thoracic central canal stenosis. No paraspinal mass or fluid collection. The thoracic aorta is unremarkable in contour. Procedure Note Alexis Alejandro MD - 05/19/[address] [address] EXAMINATION:CT of the thoracic and lumbar spine without contrast05/17/2024 INDICATION:Postoperative follow-up, thoracic and lumbar fusion TECHNIQUE: Axial CT images of the thoracic and lumbar spine were acquiredwithout intravenous contrast. Sagittal coronal reformats wereconstructed. Radiation dose reduction techniques were used. COMPARISON: CT of the thoracic and lumbar spine 02/07/2024 FINDINGS: LUMBAR SPINE: Osseous structures are diffusely demineralized. Posteriorrod and pedicle screw fixation hardware is noted at T10-L2. Hardwareappears to be intact and unremarkable in alignment with no surroundinglucency. There is methylmethacrylate within the central T10, T11, T12, L1and L2 vertebral bodies. There is a chronic compression fracture of [id number] depression of superior endplate and 30% loss of height, unchanged.There is mild retropulsion the posterior superior corner of T12 measuring5 mm, unchanged. No bony bridging across the T10-L2 disc spaces. Thereis a grade 1 anterolisthesis at L4/L5 measuring 7 mm, unchanged. Nointerval fracture or dislocation. T12/L1: Disc space narrowing arthropathy L1/L2: Disc space narrowing and facet arthropathy L2/L3: Disc space narrowing with small posterior disc/osteophyte complex,facet arthropathy and bilateral foraminal disc/osteophyte complexescausing mild central canal stenosis, moderate left neural foraminalstenosis and mild right neural foraminal stenosis L3/L4: Disc space narrowing disc bulging, facet arthropathy and smallbilateral foraminal disc/osteophyte complexes causing moderate bilateralforaminal stenosis L4/L5: Disc space narrowing with grade 1 anterolisthesis, disc bulging andfacet arthropathy causing severe bilateral foraminal stenosis, unchanged L5/S1: Disc space narrowing disc bulging and facet arthropathy causingsevere bilateral foraminal stenosis, unchanged No paraspinal mass or fluid collection. Visualized abdominal aorta isunremarkable contour. Multiple scattered diverticula are noted throughoutthe sigmoid colon The sacroiliac joint spaces are unremarkable. THORACIC SPINE: Osseous structures are diffusely demineralized. Posteriorrod and pedicle screw fixation hardware is noted at T10-L2. Hardwareappears to be intact and unremarkable in alignment with no surroundinglucency. There is methylmethacrylate within the central T10, T11, T12, L1and L2 vertebral bodies. There is a chronic compression fracture of [id number] depression of superior endplate and 30% loss of height, unchanged.There is mild retropulsion the posterior superior corner of T12 measuring5 mm, unchanged. No bony bridging across the T10-L2 disc spaces. There is a 1.1 cm lytic lesion with prior vertical striations noted withinthe anterior aspect of the T3 vertebral body, compatible with ahemangioma, unchanged no acute fracture or dislocation. There is moderate multilevel disc space narrowing. No significant bonythoracic central canal stenosis. No paraspinal mass or fluid collection.The thoracic aorta is unremarkable in contour. IMPRESSION: THORACIC SPINE: 1. Status post posterior kameron and pedicle screw fixation at T10-L2.Hardware appears to be intact and unremarkable in alignment with nosurrounding lucency. 2. Chronic compression fracture of T12 with 30% loss of height,unchanged. 5 mm retropulsion the posterior superior corner of T12,unchanged. 3. Osteopenia with moderate multilevel disc space narrowing. No acuteosseous abnormality or interval change. LUMBAR SPINE: 1. Status post posterior kameron and pedicle screw fixation at T10-L2. Thereappears to be intact and unremarkable in alignment with no surroundinglucency. 2. Osteopenia with grade 1 anterolisthesis at L4/L5, unchanged. 3. Severe neuroforaminal stenosis on the left at L4/L5 and L5/S1,unchanged. Moderate neural foraminal stenosis on the left at L2/L3 andL3/L4. 4. Severe neuroforaminal stenosis on the right L4/L5 and L5/S1,unchanged. Moderate neural foraminal stenosis on the right at L3/L4. Referred By: AGNES BEGUM Interpreted By: Alexis Alejandro MD, 05/19/2024 7:53 AM us Agnes Begum GAME PROTECTOR CT Final Resu lt * CT LUMB SPINE WO CON (05/17/2024 8:49 AM LINING CLOSER) Anatomical Region Laterality Modality Spine Computed Tomogra phy 05/19/2024 7:53 AM LINING CLOSER Impressions 05/19/2024 8:08 AM LINING CLOSER IMPRESSION: THORACIC SPINE: 1. Status post posterior kameron and pedicle screw fixation at T10-L2. Hardware appears to be intact and unremarkable in alignment with no surrounding lucency. 2. Chronic compression fracture of T12 with 30% loss of height, unchanged. 5 mm retropulsion the posterior superior corner of T12, unchanged. 3. Osteopenia with moderate multilevel disc space narrowing. No acute osseous abnormality or interval change. LUMBAR SPINE: 1. Status post posterior kameron and pedicle screw fixation at T10-L2. There appears to be intact and unremarkable in alignment with no surrounding lucency. 2. Osteopenia with grade 1 anterolisthesis at L4/L5, unchanged. 3. Severe neuroforaminal stenosis on the left at L4/L5 and L5/S1, unchanged. Moderate neural foraminal stenosis on the left at L2/L3 and L3/L4. 4. Severe neuroforaminal stenosis on the right L4/L5 and L5/S1, unchanged. Moderate neural foraminal stenosis on the right at L3/L4. Referred By: AGNES BEGUM Interpreted By: Alexis Alejandro MD, 05/19/2024 7:53 AM Narrative 05/19/2024 8:08 AM LINING CLOSER [address] [address] EXAMINATION:CT of the thoracic and lumbar spine without contrast 05/17/2024 INDICATION:Postoperative follow-up, thoracic and lumbar fusion TECHNIQUE: Axial CT images of the thoracic and lumbar spine were acquired without intravenous contrast. Sagittal coronal reformats were constructed. Radiation dose reduction techniques were used. COMPARISON: CT of the thoracic and lumbar spine 02/07/2024 FINDINGS: LUMBAR SPINE: Osseous structures are diffusely demineralized. Posterior kameron and pedicle screw fixation hardware is noted at T10-L2. Hardware appears to be intact and unremarkable in alignment with no surrounding lucency. There is methylmethacrylate within the central T10, T11, T12, L1 and L2 vertebral bodies. There is a chronic compression fracture of T12 with depression of superior endplate and 30% loss of height, unchanged. There is mild retropulsion the posterior superior corner of T12 measuring 5 mm, unchanged. No bony bridging across the T10-L2 disc spaces. There is a grade 1 anterolisthesis at L4/L5 measuring 7 mm, unchanged. No interval fracture or dislocation. T12/L1: Disc space narrowing arthropathy L1/L2: Disc space narrowing and facet arthropathy L2/L3: Disc space narrowing with small posterior disc/osteophyte complex, facet arthropathy and bilateral foraminal disc/osteophyte complexes causing mild central canal stenosis, moderate left neural foraminal stenosis and mild right neural foraminal stenosis L3/L4: Disc space narrowing disc bulging, facet arthropathy and small bilateral foraminal disc/osteophyte complexes causing moderate bilateral foraminal stenosis L4/L5: Disc space narrowing with grade 1 anterolisthesis, disc bulging and facet arthropathy causing severe bilateral foraminal stenosis, unchanged L5/S1: Disc space narrowing disc bulging and facet arthropathy causing severe bilateral foraminal stenosis, unchanged No paraspinal mass or fluid collection. Visualized abdominal aorta is unremarkable contour. Multiple scattered diverticula are noted throughout the sigmoid colon The sacroiliac joint spaces are unremarkable. THORACIC SPINE: Osseous structures are diffusely demineralized. Posterior kameron and pedicle screw fixation hardware is noted at T10-L2. Hardware appears to be intact and unremarkable in alignment with no surrounding lucency. There is methylmethacrylate within the central T10, T11, T12, L1 and L2 vertebral bodies. There is a chronic compression fracture of T12 with depression of superior endplate and 30% loss of height, unchanged. There is mild retropulsion the posterior superior corner of T12 measuring 5 mm, unchanged. No bony bridging across the T10-L2 disc spaces. There is a 1.1 cm lytic lesion with prior vertical striations noted within the anterior aspect of the T3 vertebral body, compatible with a hemangioma, unchanged no acute fracture or dislocation. There is moderate multilevel disc space narrowing. No significant bony thoracic central canal stenosis. No paraspinal mass or fluid collection. The thoracic aorta is unremarkable in contour. Procedure Note Alexis Alejandro MD - 05/19/[address] [address] EXAMINATION:CT of the thoracic and lumbar spine without contrast05/17/2024 INDICATION:Postoperative follow-up, thoracic and lumbar fusion TECHNIQUE: Axial CT images of the thoracic and lumbar spine were acquiredwithout intravenous contrast. Sagittal coronal reformats wereconstructed. Radiation dose reduction techniques were used. COMPARISON: CT of the thoracic and lumbar spine 02/07/2024 FINDINGS: LUMBAR SPINE: Osseous structures are diffusely demineralized. Posteriorrod and pedicle screw fixation hardware is noted at T10-L2. Hardwareappears to be intact and unremarkable in alignment with no surroundinglucency. There is methylmethacrylate within the central T10, T11, T12, L1and L2 vertebral bodies. There is a chronic compression fracture of [id number] depression of superior endplate and 30% loss of height, unchanged.There is mild retropulsion the posterior superior corner of T12 measuring5 mm, unchanged. No bony bridging across the T10-L2 disc spaces. Thereis a grade 1 anterolisthesis at L4/L5 measuring 7 mm, unchanged. Nointerval fracture or dislocation. T12/L1: Disc space narrowing arthropathy L1/L2: Disc space narrowing and facet arthropathy L2/L3: Disc space narrowing with small posterior disc/osteophyte complex,facet arthropathy and bilateral foraminal disc/osteophyte complexescausing mild central canal stenosis, moderate left neural foraminalstenosis and mild right neural foraminal stenosis L3/L4: Disc space narrowing disc bulging, facet arthropathy and smallbilateral foraminal disc/osteophyte complexes causing moderate bilateralforaminal stenosis L4/L5: Disc space narrowing with grade 1 anterolisthesis, disc bulging andfacet arthropathy causing severe bilateral foraminal stenosis, unchanged L5/S1: Disc space narrowing disc bulging and facet arthropathy causingsevere bilateral foraminal stenosis, unchanged No paraspinal mass or fluid collection. Visualized abdominal aorta isunremarkable contour. Multiple scattered diverticula are noted throughoutthe sigmoid colon The sacroiliac joint spaces are unremarkable. THORACIC SPINE: Osseous structures are diffusely demineralized. Posteriorrod and pedicle screw fixation hardware is noted at T10-L2. Hardwareappears to be intact and unremarkable in alignment with no surroundinglucency. There is methylmethacrylate within the central T10, T11, T12, L1and L2 vertebral bodies. There is a chronic compression fracture of [id number] depression of superior endplate and 30% loss of height, unchanged.There is mild retropulsion the posterior superior corner of T12 measuring5 mm, unchanged. No bony bridging across the T10-L2 disc spaces. There is a 1.1 cm lytic lesion with prior vertical striations noted withinthe anterior aspect of the T3 vertebral body, compatible with ahemangioma, unchanged no acute fracture or dislocation. There is moderate multilevel disc space narrowing. No significant bonythoracic central canal stenosis. No paraspinal mass or fluid collection.The thoracic aorta is unremarkable in contour. IMPRESSION: THORACIC SPINE: 1. Status post posterior kameron and pedicle screw fixation at T10-L2.Hardware appears to be intact and unremarkable in alignment with nosurrounding lucency. 2. Chronic compression fracture of T12 with 30% loss of height,unchanged. 5 mm retropulsion the posterior superior corner of T12,unchanged. 3. Osteopenia with moderate multilevel disc space narrowing. No acuteosseous abnormality or interval change. LUMBAR SPINE: 1. Status post posterior kameron and pedicle screw fixation at T10-L2. Thereappears to be intact and unremarkable in alignment with no surroundinglucency. 2. Osteopenia with grade 1 anterolisthesis at L4/L5, unchanged. 3. Severe neuroforaminal stenosis on the left at L4/L5 and L5/S1,unchanged. Moderate neural foraminal stenosis on the left at L2/L3 andL3/L4. 4. Severe neuroforaminal stenosis on the right L4/L5 and L5/S1,unchanged. Moderate neural foraminal stenosis on the right at L3/L4. Referred By: AGNES BEGUM Interpreted By: Alexis Alejandro MD, 05/19/2024 7:53 AM Agnes Begum GAME PROTECTOR CT Final Resu lt * COLONOSCOPY GENERIC (SCAN ORDER) (02/04/2017) 02/04/2017 [facility] Scanned SCANNING Final Resu lt from Last 3 Months or Most Recently Relevant to Health Maintenance Insurance MEDICARE [facility] Advance Directives * Full Code (Latest Code Status on File) Date Activated Date Inactivated Comments 05/21/2023 1:09 PM 05/24/2023 8:38 PM * Full Code Date Activated Date Inactivated Comments 05/20/2023 6:45 PM 05/21/2023 1:09 PM * Full Code Date Activated Date Inactivated Comments 05/20/2023 6:03 PM 05/20/2023 6:45 PM Care Teams Retail Merchandising Specialist Relationship Specialty Start [place] [id number] [address] PCP - General INTERNAL MEDICINE 02/18/24 Juan R Sosa MD [place] [employer] CARDIOVASCULAR DISEASE 10/03/15
--- OUTSIDE RECORDS SUMMARY | 2024-07-10 14:27 | XMS_ITS | Referral Summary ---
Author Organization [facility] Address [address] [place] [id number] Care Team Providers Care Varnishing Machine Operator Name Role Phone Rufino Randolph MD Unavailable Marilee Carvalho MD Primary Care Provider [phone] Allergies Active Allergy Reactions Criticality Noted Date [...] EC tablet 3 Active cholecalciferol (VITAMIN D-3) 77069 unit capsule Take 1 capsule (10,000 Units [...] (05/13/2018): Added automatically from request for surgery [id number] Primary osteoarthritis of left knee 04/26/2018 Preop cardiovascular exam 04/15/2018 Essential hypertension 04/15/2018 Hyperlipidemia LDL goal <100 04/15/2018 Hypothyroidism 04/15/2018 Coronary artery disease invo lving [place] coronary artery of [place] heart without angina pectoris 04/15/2018 Resolved Problems Problem Noted Date Diagnosed Date Resolved Date Class 1 obesity due to exces s calories without serious comorbidity with body mass index (BMI) of 34.0 to 34.9 in adult 04/15/201803/2020 Social History Tobacco Use Types Packs/Day Years Used Date Smoking Tobacco: Never Smokeless Tobacco: Never Tobacco Cessation:Counseling Given: Not Answered Alcohol Use Standard Drinks/Week Comments No 0 (1 standard drink = 0.6 oz pur e alcohol) Comments Unknown Sex and Gender Information Value Date Recorded Sex Assigned at Not on file Legal Sex Female 2:21 AM CAD MANAGER Gender Identity Not on file Sexual Orientation Not on file Last Filed Vital Signs Vital Sign Reading Time Taken Comments Blood Pressure 138/88 02/21/2024 11:12 AM CAD MANAGER Pulse 72 02/21/2024 9:42 AM CAD MANAGER Temperature - - Respiratory Rate - - Oxygen Saturation 99% 02/21/2024 9:42 AM CAD MANAGER Inhaled Oxygen Concentration - - Weight 76.7 kg (169 lb) 02/21/2024 9:42 AM CAD MANAGER Height 154.9 cm (5' 1 ) 02/21/2024 9:42 AM CAD MANAGER Body Mass Index 31.93 02/21/2024 9:42 AM CAD MANAGER Plan of Treatment Not on file Insurance MEDICARE [employer] MEDICARE FOR LIFE MEDICARE FOR LIFE MEDICARE [facility] FOR [facility] Care Teams Varnishing Machine Operator Relationship Specialty Start [place] [id number] [address] PCP - General Internal Medicine 06/19/24 Rufino Randolph MD Referring Physician Internal Medicine 12/13/17
--- OUTSIDE RECORDS SUMMARY | 2024-07-10 14:27 | XMS_ITS | Continuity of Care Document ---
Author Organization [facility] Address [address] Oscar Sierra [address] [place] [address] Phone Care Team Providers Care Tape Calender Name Role Phone Bora Rebolledo MD Unavailable [...] Providers Copied on Encounter [facility], [address], [place], [address], [place] tel:[phone] [facility] No Information 0 Kesha Sahni. [address], [place], [place], [id number]. tel:[phone] OFFICE/OUTPA TIENT VISIT EST [facility], [address], [place], [address], [place] tel:[phone] [facility] Status post total left knee replacement 0 Boxdorfer Candy. [address], [place], [place], [id number]. tel:[phone] OFFICE/OUTPA TIENT VISIT EST [facility], [address], [place], [address], [place] tel:[phone] [facility] Right hip painBody mass index (BMI) 32.0-32.9, adultTrochanter ic bursitis of right hip 9 Boxdorfer Candy. [address], [place], [place], [address]. tel:[phone] OFFICE/OUTPA TIENT VISIT EST [facility], [address], [place], [address], [place] tel:[phone] [facility] Status post total left knee replacement 9 Boxdorfer Candy. [address], [place], [place], [address]. tel:[phone] [facility], [address] [address], [place], [address], [place] tel:[phone] [facility] Status post total left knee replacement 9 Kesha Sahni. [address], [place], [place], [address]. tel:[phone] [facility], [address], [place], [address], [place] tel:[phone] [facility] Status post total left knee replacementPrim jurgen osteoarthritis of left knee 9 Kesha Sahni. [address], [place], [place], [address]. tel:[phone] [facility], [address] [address], [place], [address], [place] tel:[phone] [facility] Status post total left knee replacement 9 Kesha Sahni. [address], [place], [place], [address]. tel:[phone] [facility], [address] [address], [place], [address], [place] tel:[phone] [facility] Status post total left knee replacementPrim jurgen osteoarthritis of left kneeBody mass index (BMI) 32.0-32.9, adult 9 Shobha Sahni. [address] [facility], [place], [place], [address]. tel:[phone] [facility], [address] [address], [place], [address], [place] tel:[phone] [facility] Status post total left knee replacement 9 Wilmandamilynn Gupta. [address], [place], [place], [address]. tel:[phone] [facility], [address] [address], [place], [address], [place] tel:[phone] [facility] Osteoarthritis of left knee, unspecified osteoarthritis type 8 Kesha Sahni. [address], [place], [place], [address]. tel:[phone] OFFICE/OUTPA TIENT VISIT EST [facility], [address] [facility] [address], [place], [address], [place] tel:[phone] [facility] Osteoarthritis of left knee, unspecified osteoarthritis type 8 Boxdorfer Candy. [address], [place], [place], [address]. tel:[phone] OFFICE/OUTPA TIENT VISIT EST [facility], [address] [facility] [address], [place], [address], [place] tel:[phone] [facility] Left knee pain, unspecified chronicityEssen tial (primary) hypertensionOst eoarthritis of left knee, unspecified osteoarthritis type 8 Boxdorfer Candy. [address], [place], [place], [address]. tel:[phone] OFFICE/OUTPA TIENT VISIT NEW [facility], [address] [facility] [address], [place], [address], [place] tel:[phone] [facility] Left knee pain, unspecified chronicityBody mass index (BMI) 34.0-34.9, adultOsteoarthr itis of left knee, unspecified osteoarthritis type 7 Kesha Sahni. [address], [place], [place], [address]. tel:[phone] OFFICE/OUTPA TIENT VISIT EST [facility], [address] [facility] [address], [place], [address], [place] tel:[phone] [facility] Enthesopathy of hip region 3 Kesha Sahni. [address], [place], [place], [address]. tel:[phone] Referring Provider: Efrain Argueta [address] [place], [address]. tel:[phone] OFFICE/OUTPA TIENT VISIT EST [facility], [address], [place], [address], [place] tel:[phone] [facility] bilateral hip pain (chief complaint) Enthesopathy of hip regionHypertens ion, Unspecified 0 2 Kesha Sahni. [address], [place], [place], [address]. tel:[phone] Referring Provider: Efrain Argueta, [address] [place] [facility] [place], [address]. tel:[phone] Family History Family Member Type Diagnosis Age At Onset Father Problem (finding) malignant neoplasm of luis martini Sister Problem (finding) coronary arterioscleros is Mother Problem (finding) Diabetes mellitus Mother Problem (finding) Arthritis Sister Problem (finding) malignant neoplasm of luis martini Immunizations Vaccine Date Status Comments Pneumo (2 yrs or older)(PPV) administered Source: Other Provider Payers Payer name Insurance type Covered constitution party ID Authoriza tion(s) Medicare E2 OT [id number] For [employer] [place] [id number] Social History Type Description Quantity Date Captured [...] Information Instructions Date Instruction Additional Infor mation Giving encouragement to exercise Related to Body mass index (BMI) 32.0-32.9, adult Home exercise program. Related t o Trochanteric bursitis of right hip Apply moist heat or cold 20 min per hour. Related to Trochanteric bursitis of right hip Home exercise program. Related t o Status post total left knee replacement Giving encouragement to exercise Related to Body mass index (BMI) 32.0-32.9, adult Discussed treatment options Rela darwin to Status post total left knee replacement Home exercise program. Related t o Osteoarthritis of left knee, unspecified osteoarthritis type Weight loss reduces stress on joints. Related to Osteoarthritis of left knee, unspecified osteoarthritis type Giving encouragement to exercise Related to Body mass index (BMI) 34.0-34.9, adult Home exercise program. Related t o Osteoarthritis of left knee, unspecified osteoarthritis type Home exercise program. Related t o Left knee pain, unspecified chronicity Take medication as directed. Rel ated to Left knee pain, unspecified chronicity Weight loss reduces stress on joints. Related to Osteoarthritis of left knee, unspecified osteoarthritis type ROM as tolerated Protective activity Home safety checklis t for fall hazards provided Fall risk home exerc ise program handout provided Assessments Type Assessment Date No Information Patient Care Teams Name Effective Dates (start - stop) Status Members No Information
--- OUTSIDE RECORDS SUMMARY | 2024-07-10 14:27 | XMS_ITS | Clinical Summary ---
Author Organization [facility] Address [address] [place] [address] Phone Care Team Providers Care Contractor General Engineering Name Role Phone [facility], External Provider Primary Care Provider Un available Allergies Active Allergy Reactions Criticality Noted Date Comments Amoxicillin Rash Medium 04/14/2018 Cephalexin Rash 04/14/2018 Sulfa (Sulfonamide Antibiotics) Rash Medium 03/29 Medications sertraline (ZOLOFT) 100 mg tablet Take 100 mg by mouth daily with breakfast. 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 Active atorvastatin (LIPITOR) 40 mg tablet Take 40 mg by mouth daily at bedtime. Active cetirizine (ZyrTEC) 10 mg tablet Take 10 mg by mouth daily at bedtime. Active fluticasone (FLONASE) 50 mcg/spray [place], Suspension 2 Sprays by See Admin Instructions route see administration instructions Takes opposite days of fortical . Active calcitonin, Prue, (FORTICAL) 200 unit/actuation [place], Non-Aerosol Administer 1 [place] in each nostril see administration instructions Takes opposite days of flonase Alternating Nostrils . Active meloxicam (MOBIC) 15 mg tablet Take 15 mg by mouth daily. Active conjugated estrogens (PREMARIN) 0.625 mg/gram vaginal cream Insert vaginally daily at bedtime. Active aspirin (ECOTRIN EC) 81 mg Tablet, Delayed Release (E.C.) Take 81 mg by mouth daily. Active sennosides-docusat e sodium (SENNA-S) 8.6-50 mg tabletIndications: Primary osteoarthritis of left knee Take 1 Tablet by mouth 2 times daily. 60 Tablet 9 10:35 AM DIGITAL MEDIA COORDINATOR 04/27/19 19 Active rivaroxaban (XARELTO) 10 mg TabletIndications: Primary osteoarthritis of left knee Take 1 Tablet (10 mg) by mouth daily. 21 Tablet 9 10:35 AM DIGITAL MEDIA COORDINATOR 04/27/19 19 Active HYDROcodone-acetam inophen (NORCO) 5-325 mg tabletIndications: Primary osteoarthritis of left knee Take 1 Tablet by mouth every 4 hours as needed for moderate pain. Max Daily Amount: 6 Tablets 42 Tablet 9 10:35 AM DIGITAL MEDIA COORDINATOR 04/27/19 19 Active Active Problems Problem Noted Date Diagnosed Date Primary osteoarthritis of left knee 04/26/2018 Social History Tobacco Use Types Packs/Day Years Used Date Smoking Tobacco: Never Smokeless Tobacco: Never Alcohol Use Standard Drinks/Week Comments Yes 0 (1 standard drink = 0.6 oz pur e alcohol) 1 new year Comments No Sex and Gender Information Value Date Recorded Sex Assigned at Not on file Legal Sex Female 10:08 PM CDT Gender Identity Not on file Sexual Orientation Not on file Last Filed Vital Signs Vital Sign Reading Time Taken Comments Blood Pressure 137/87 04/28/2018 8:05 AM DIGITAL MEDIA COORDINATOR Pulse 63 04/28/2018 8:05 AM DIGITAL MEDIA COORDINATOR Temperature 36.7 C (98.1 F) 04/28/2018 4:05 AM DIGITAL MEDIA COORDINATOR Respiratory Rate 16 04/28/2018 8:05 AM DIGITAL MEDIA COORDINATOR Oxygen Saturation 99% 04/28/2018 8:05 AM DIGITAL MEDIA COORDINATOR Inhaled Oxygen Concentration - - Weight 80.7 kg (178 lb) 04/26/2018 7:52 AM DIGITAL MEDIA COORDINATOR Height 156.2 cm (5' 1.5 ) 04/14/2018 9:51 AM DIGITAL MEDIA COORDINATOR Body Mass Index 33.09 04/14/2018 9:51 AM DIGITAL MEDIA COORDINATOR Plan of Treatment Health Maintenance Due Date Last Done Comments DTAP/TDAP/TD VACCINES (1 - Tdap) 1968 COLORECTAL SCREENING 1994 Colorectal Cancer Screening 1994 FIT-DNA Q 3 years 1994 FIT/FOBT Q 1 year 1994 Flex Sig/CT Colonography Q 5 years 1994 PNEUMOCOCCAL VACCINE 50+ YEARS (1 of 1 - PCV) 03/08/19 99 ZOSTER VACCINE (1 of 2) 1999 OSTEOPOROSIS SCREENING 2014 INFLUENZA VACCINE (#1) 2023 RSV VACCINE (60+ or ) (1 - 1-dose 75+ series) 2024 Medical Devices Implanted Type Area Dealer Accounts Investigator Device Identifier Shelf Expiration Date Model / Serial / Lot Cement Depuy1 40grams 3312-040 - Snone Implanted:Qty : 1 on 04/26/2018 by Bora Rebolledo MD at [facility] Cement Left: Knee [employer] 07/26/2020 3312-040 / NONE / [id number] Description: REQ#[id number] Comp Tib Attn Fb Cmnt Sz3 1506-70-003 - Snone Implanted:Qty : 1 on 04/26/2018 by Bora Rebolledo MD at [facility] Knee Left: Knee [employer] 01/27/2028 [id number] / NONE / [id number] Description: Comp Fem Attn Cr Cmnt Sz4 1504-00-104 - Snone Implanted:Qty : 1 on 04/26/2018 by Bora Rebolledo MD at [facility] Knee Left: Knee [employer] 02/26/2028 [id number] / NONE / [id number] Description: Patella Attune Dome 32mm 1518-20-032 - Snone Implanted:Qty : 1 on 04/26/2018 by Bora Rebolledo MD at [facility] Knee Left: Knee [employer] 02/25/2023 [id number] / NONE / [id number] Description: Ins Attn Fb Cr Sz4 5mm 1516-20-405 - Snone Implanted:Qty : 1 on 04/26/2018 by Bora Rebolledo MD at [facility] Knee Left: Knee [employer] 09/25/2022 [id number] / NONE / [id number] Description: Knee Insurance MEDICARE PART A AND B FOR LIFE [facility] Address: [place] [address] [employer] Directives For more information, please contact: [phone] * Full Code (Latest Code Status on File) Date Activated Date Inactivated Comments 04/26/2018 4:26 PM 04/28/2018 2:11 PM Care Teams Contractor General Engineering Relationship Specialty Start Date End Date [facility], External Provider [id number] [place] [address] PCP - General 04/14/18
--- OUTSIDE RECORDS SUMMARY | 2024-07-10 14:27 | XMS_ITS | Continuity of Care Document ---
Author Name [facility] Organization [facility] Care Team Providers Care Laboratory Operations Coordinator Name Role Phone [facility] Unavailable Unavailable Problems Combined list of problems from Department of Defense and Veterans Affairs facilities. It does not include entries that were removed or entered in error. Problem Status Onset Date Problem Type Date of Resolution Comments Source Encounter for issue of repeat prescription Active 4 Diagnosis 0055C-375t [facility] Acquired deformity of toe Active Condition 0055C-375t h [facility] Allergic rhinitis Active Condition 0055 C-375t h [facility] Anxiety Active Condition 0055C-375t h [facility] Coronary artery disease Active Condition 0055C-375t h [facility] Depressive disorder1 Active Condition Outside Source Comment: Good results on sertraline, no SI/HI. Continue, f/u 6-12 months. 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 Continue simvistatin. Rescreen in 12 months. 0055C-375t h [facility] Hypothyroidism3 Active Condition Outs [facility] Source Comment: discussed labs, T4 free in mid range, TSH a little low, recommend recheck TSH in 6 months, may need to reduce dose 0055C-375t h [facility] Ingrowing nail Active Condition 0055C-3 75t h [facility] Osteoarthritis Active Condition 0055C-3 75t h [facility] Osteoporosis Active Condition 0055C-375 t h [facility] Medications Combined list of outpatient medications from Department of Defense and Veterans Affairs facilities.Medications provided include 1) outpatient medications from the last 15 months, and 2) patient-reported medications. Medication Details Route Status Patient Instructions Prescription Expires Prescription Number Last Dispense Date Ordering Provider Order Date Order Qty Source aspirin EC 81 mg tablet 81 mg, Oral, Daily, # 90 EA, 3 total refill(s ), Hard Stop Oral (given by mouth) Ordered 03/16/2025 5 2024 90.0 Ambulat ory Pharmac y atorvastati n 80 mg tablet See Instruct ions, # 90 EA, 2 total refill(s ), Acute [facility] ed 03/31/2023 3 2023 90.0 Ambulat ory Pharmac y atorvastati n 80 mg tablet See Instruct ions, Oral, # 90 EA, 3 total refill(s ), Hard Stop Oral (given by mouth) Ordered 03/16/2025 4 2023 90.0 Ambulat ory Pharmac y cetirizine 10 mg tablet See Instruct ions, Oral, # 90 EA, 3 total refill(s ), Hard Stop Oral (given by mouth) Ordered 03/16/2025 5 2024 90.0 Ambulat ory Pharmac y cetirizine 10 mg tablet See Instruct ions, # 90 EA, 2 total refill(s ), Acute [facility] ed 03/31/2023 3 2023 90.0 Ambulat ory Pharmac y diclofenac 1% topical gel USE DOSING CARD TO APPLY 2 TO 4 GRAMS TO AFFECTED AREAS FOUR TIMES A DAY DIRECTED , # 100 g, 3 total refill(s ), Acute [facility] ed 03/31/2023 3 2023 100.0 Ambulat ory Pharmac y docusate sodium 100 mg oral capsule 1 cap(s), Oral, BID, PRN constipa tion, # 60 cap(s), 0 total refill(s ), Maintena moe, Pharmacy : [facility] Oral (given by mouth) Ordered 2023 60.0 0055C-[address] [place] [address] docusate sodium 100 mg oral capsule 1 cap(s), Oral, BID, PRN constipa tion, # 20 cap(s), 0 total refill(s ), Maintena nce, Pharmacy : [id number] Oral (given by mouth) Ordered 2023 20.0 [facility] fluticasone 50 mcg/inh nasal spray 2 spray(s) , Nostril- Both, Daily, # 3 EA, 3 total refill(s ), Acute, Pharmacy : [facility] Nostri l-Both (into the nose) Discont inued 03/24/2024 4 2023 3.0 0055C[facility]3 [facility] fluticasone 50 mcg/inh nasal spray [16g] See dose instruct ions in comments , # 48 g, 3 total refill(s ), Acute Discont inued 03/31/2023 3 2023 48.0 Ambulat ory Pharmac y fluticasone 50 mcg/inh nasal spray [16g] See Instruct ions, # 32 g, 1 total refill(s ), Hard Stop Ordered 04/20/2025 5 2024 32.0 Ambulat ory Pharmac y fluticasone 50 mcg/inh nasal spray [16g] See Instruct ions, # 16 g, 3 total refill(s ), Hard Stop Discont inued 04/24/2024 4 2024 16.0 Ambulat ory Pharmac y levothyroxi ne (Synthroid) 88 mcg tablet 88 mcg, Oral, # 65 EA, 1 total refill(s ), Hard Stop, KAREN Oral (given by mouth) Discont inued 03/24/2024 4 2023 65.0 Ambulat ory Pharmac y levothyroxi ne (Synthroid) 88 mcg tablet See Instruct ions, # 90 EA, 3 total refill(s ), Hard Stop, KAREN Complet ed 11/03/2023 4 2023 90.0 Ambulat ory Pharmac y levothyroxi ne (Synthroid) 88 mcg tablet See dose instruct ions in comments , # 65 EA, 3 total refill(s ), Acute Discont inued 12/01/2022 3 2022 65.0 Ambulat ory Pharmac y levothyroxi ne (Synthroid) 88 mcg tablet See Instruct ions, # 72 EA, 3 total refill(s ), Hard Stop Ordered 03/16/2025 5 2024 72.0 Ambulat ory Pharmac y Lidoderm 5% topical film 1 patch(es ), Topical, Daily, Leave on for up to 12 hours within a 24 hour period (12 hours on, 12 hours off), # 30 patch(es ), 3 total refill(s ), Maintena nce, Pharmacy : [facility] Topica l (on the skin) Ordered 4 2023 30.0 [facility] Lipitor 80 mg oral tablet 1 tab(s), Oral, Daily, for choleste rol, # 90 tab(s), 3 total refill(s ), Maintena nce Oral (given by mouth) Discont inued 03/31/20232023 90.0 0055C-3 [facility] Lipitor 80 mg oral tablet 1 tab(s), Oral, Daily, for choleste rol, # 90 tab(s), 3 total refill(s ), Maintena moe, Pharmacy : [facility] Oral (given by mouth) Discont inued 03/24/2024 4 2023 90.0 0055C-3 [facility] MiraLax oral powder for reconstitut ion See Instruct ions, Dissolve and drink 1 capful (17g) of powder in 4 to 8 ounces of liquid once daily, # 510 g, 0 total refill(s ), Maintena nce Ordered 2023 510.0 0055C-3 [facility] [place] 5 mg-325 mg oral tablet 1 tab(s), Oral, every 6 hr, PRN pain, 0 total refill(s ), Maintena nce Oral (given by mouth) Ordered 2023 0055C-3 [facility] orphenadrin e ER 100 mg tablet See Instruct ions, 0, 0, take one tablet by mouth twice a day as needed, # 60 EA, 2 total refill(s ), Soft Stop Ordered 5 2024 60.0 Ambulat ory Pharmac y orphenadrin e ER 100 mg tablet See Instruct ions, # 60 EA, 2 total refill(s ), Hard Stop Ordered 02/16/2025 5 2024 60.0 Ambulat ory Pharmac y pantoprazol e EC 40 mg tablet See Instruct ions, # 180 EA, 2 total refill(s ), Acute Complet ed 03/31/2023 3 2023 180.0 Ambulat ory Pharmac y pantoprazol e EC 40 mg tablet 40 mg, Oral, Daily, # 90 EA, 3 total refill(s ), Hard Stop Oral (given by mouth) Ordered 03/16/2025 5 2024 90.0 Ambulat ory Pharmac y Protonix 40 mg oral delayed release tablet 1 tab(s), Oral, BID, # 180 tab(s), 3 total refill(s ), Maintena [facility], Pharmacy : [facility] Oral (given by mouth) Cancele d 03/24/20242023 180.0 0055C-3 [facility] Protonix 40 mg oral delayed release tablet 1 tab(s), Oral, BID, # 180 tab(s), 3 total refill(s ), Maintena [facility], Pharmacy : [facility] #[id number] Oral (given by mouth) Discont inued 09/21/20232023 180.0 0055C-3 [facility] Protonix 40 mg oral delayed release tablet 1 tab(s), Oral, Daily, # 90 tab(s), 3 total refill(s ), Maintena [facility], Pharmacy : [facility] Oral (given by mouth) Discont inued 05/31/2023 4 2023 90.0 0055C-3 [facility] Protonix 40 mg oral delayed release tablet 1 tab(s), Oral, Daily, # 90 tab(s), 3 total refill(s ), Maintena moe Oral (given by mouth) Discont inued 03/31/20232023 90.0 0055C-3 [facility] senna (sennosides ) 8.6 mg oral tablet 2 tab(s), Oral, every day at bedtime, PRN constipa tion, # 20 tab(s), 0 total refill(s ), Maintena nce Oral (given by mouth) Ordered 2023 20.0 0055C-3 [facility] sertraline 100 mg oral tablet 1 tab(s), Oral, Daily, # 90 tab(s), 0 total refill(s ), Maintena nce Oral (given by mouth) Discont inued 03/31/20232023 90.0 0055C-3 [facility] sertraline 100 mg oral tablet 1 tab(s), Oral, Daily, # 90 tab(s), 3 total refill(s ), Maintena nce, Pharmacy : [facility] Oral (given by mouth) Discont inued 04/24/2024 4 2024 90.0 0055C-3 [facility] sertraline 100 mg tablet 100 mg, Oral, Daily, # 90 EA, 0 total refill(s ), Soft Stop Oral (given by mouth) Ordered 5 2024 90.0 Ambulat ory Pharmac y sertraline 100 mg tablet See dose instruct ions in comments , # 90 EA, 2 total refill(s ), Acute Complet ed 03/31/2023 3 2023 90.0 Ambulat ory Pharmac y sertraline 100 mg tablet See Instruct ions, # 90 EA, 0 total refill(s ), Hard Stop Complet ed 04/30/2024 5 2024 90.0 Ambulat ory Pharmac y traMADol 50 mg oral tablet 1 tab(s), Oral, every 6 hr, PRN pain, # 30 tab(s), 0 total refill(s ), Acute, 05/21/23 12:00:00 AM [employer], Pharmacy : [facility] Oral (given by mouth) Complet ed 05/21/2023 4 2023 30.0 0055C-3 75[facility]A Osman ZyrTEC 10 mg oral tablet 1 tab(s), Oral, Daily, PRN allergy symptoms , # 90 tab(s), 3 total refill(s ), Maintena nce, Pharmacy : [facility] Oral (given by mouth) Discont inued 03/24/2024 4 2023 90.0 0055C-3 75th [facility] Osman ZyrTEC 10 mg oral tablet 1 tab(s), Oral, Daily, PRN allergy symptoms , # 90 tab(s), 3 total refill(s ), Maintena nce Oral (given by mouth) Discont inued 03/31/20232023 90.0 0055C-3 [facility] Allergies, Adverse Reactions, Alerts Combined list of allergies from Department of Defense and Veterans Affairs facilities. It does not include entries that were removed or entered in error. Substance Category Reaction Severity Reaction type Status Date Reported Comments Source amoxicillin Propensity to adverse reactions to drug Unknown Active Reaction( s): Unknown<b r/>Reacti on(s): Unknown; Note: PER 3066 Unknown Organizati on cephalexin Propensity to adverse reactions to drug Unknown Active Reaction( s): Unknown; Note: PER 3066 Unknown Organizati on codeine Propensity to adverse reactions to drug Unknown Active 3 Unknown Organizati on sulfa drugs Propensity to adverse reactions to drug Unknown Active Reaction( s): Unknown; Note: PER 3066 Unknown Organizati on Immunizations Combined list of available immunizations from the Department of Defense and Veterans Affairs facilities. Immunization Series Date Given Administered By Site Reaction Lot Number CVX Code Drug Scraper Meat Status Comments Source RSV vaccine preF3, recombinant 2023 [id number] complet ed RSV vaccine preF3, recombina nt 03/31/23 Recorded 0055C[facility] tetanus-dipht h toxoids (Td) adult/adol 2022 zzLef t Arm [id number] sanofi pasteur complet ed tetanus-d iphth toxoids (Td) adult/ado l 04/15/22 Given Ambulat ory Pharmac y COVID Vaccine Moderna 2020 [id number] [id number] 207 complet ed COVID Vaccine Moderna 02/17/21 Given Ambulat ory Pharmac y influenza, injectable, quadrivalent- pf 2020 zzLef t Arm [id number] 150 Glax[employer]SmithK[employer] complet ed influenza , injectabl e, quadrival ent-pf 01/16/21 Given Ambulat ory Pharmac y zoster vaccine, inactivated 2020 zzLef t Arm [id number] GlaxoSmithKli ne complet ed zoster vaccine, inactivat ed 06/26/20 Given Ambulat ory Pharmac y COVID Vaccine Moderna 2020 [id number] complet ed COVID Vaccine Moderna 05/29/20 Given Ambulat ory Pharmac y COVID Vaccine Moderna 2020 [id number] complet ed COVID Vaccine Moderna 05/01/20 Given Ambulat ory Pharmac y zoster vaccine, inactivated 2019 zzLef t Arm [id number] 187 GlaxoSmithKli ne complet ed zoster vaccine, inactivat ed 03/15/20 Given Ambulat ory Pharmac y influenza, high-dose seasonal, quad, pf 2019 TRANSCR [id number] 197 complet ed influenza , high-dose seasonal, quad, pf 01/09/20 Given Ambulat ory Pharmac y influenza, injectable, quadrivalent- pf 2018 zzLef t Arm [id number] 150 [employer] complet ed influenza , injectabl e, quadrival ent-pf 03/16/19 Given Ambulat ory Pharmac y influenza, injectable, quadrivalent- pf 2017 zzLef t Arm [id number] 150 GlaxoSmithKli ne complet ed influenza , injectabl e, quadrival ent-pf 03/04/18 Given Ambulat ory Pharmac y influenza, injectable, quadrivalent- pf 2016 zzLef t Arm [id number] GlaxoSmithK[employer] ne complet ed influenza , injectabl e, quadrival ent-pf 01/15/17 Given Ambulat ory Pharmac y influenza, seasonal, injectable 2016 zzLef t Arm [id number] [employer] complet ed influenza , seasonal, injectabl e 04/03/16 Given Ambulat ory Pharmac y influenza, injectable, quadrivalent- pf 2015 zzLef t Arm [id number] 150 GlaxoSmithKli ne complet ed influenza , injectabl e, quadrival ent-pf 04/10/15 Given Ambulat ory Pharmac y pneumococcal polysaccharid e, 23 valent 2014 zzLef t Arm [id number] [employer] complet ed pneumococ kiana polysacch aride, 23 valent 10/19/14 Given Ambulat ory Pharmac y influenza, injectable, quadrivalent 2014 zzLef t Arm [id number] [employer] complet ed influenza , injectabl e, quadrival ent 04/19/14 Given Ambulat ory Pharmac y pneumococcal 13-valent conjugate (PCV13) 2014 zzLef t Arm [id number] [employer] [facility] complet ed pneumococ kiana 13-valent conjugate (PCV13) 04/19/14 Given Ambulat ory Pharmac y influenza, seasonal, injectable 2012 zzLef t Arm [id number] 141 sanofi pasteur complet ed influenza , seasonal, injectabl e 03/15/13 Given Ambulat ory Pharmac y influenza, seasonal, injectable 2011 zzLef t Arm [id number] 141 sanofi pasteur complet ed influenza , seasonal, injectabl e 03/24/12 Given Ambulat ory Pharmac y tetanus, diphtheria, acellular pertu [id number] tetanus, diphtheri a, acellular pertussis 03/24/12 Given Ambulat ory Pharmac y zoster vaccine live 2011 zzLef t Arm [id number] [employer] complet ed zoster vaccine live 02/22/12 Given Ambulat ory Pharmac y influenza virus vaccine, whole virus 2002 zzLef t Arm [id number] 16 sanofi pasteur complet ed influenza virus vaccine, whole virus 02/09/03 Given Ambulat ory Pharmac y influenza virus vaccine, whole virus 2001 zzLef t Arm [id number] 16 sanofi pasteur complet ed influenza virus vaccine, whole virus 03/06/02 Given Ambulat ory Pharmac y tetanus-dipht h toxoids (Td) adult/adol 2001 zzLef t Arm [id number] 09 sanofi pasteur complet ed tetanus-d iphth toxoids (Td) adult/ado l 03/06/02 Given Ambulat ory Pharmac y Results Combined list of recent chemistry, hematology and other laboratory results from Department of Defense and Veterans Affairs, ranging from 15 months to all on record, depending upon the facility. Order Name Results Value Reference Range Date Interpretation Specimen Comments Source Chemistry Potassium Lvl 4.9 mmol/L 3.5 - 5.1 05/30 N 0055A-[address] [place] [address]- [facility] Glucose Lvl 86 mg/dL 74 - 99 05/30 N 0055A-[address] [place] [address]- [facility] Creatinine Level 1.10 mg/dL 0.57 - 1.11 05/30 N 0055A-[address] [place] [address]- [facility] CO2 24 mmol/L 22 - 29 05/30 N 0055A-[address] [place] [address]- [facility] Chloride 102 mmol/L 98 - 107 05/30 N 0055A-[address] [place] [address] Chemistry Alk Phos 93 U/L 40 - 150 05/30 N 0055A-[address] [place] [address]- [facility] Albumin 2.90 g/dL 3.50 - 5.20 05/30 L 0055A-[address] [place] [address]- [facility] AGAP 11.00 0.00 - 15.00 05/30 N 0055A-[address] [place] [address]- [facility] Protein Total 6.6 g/dL 6.4 - 8.3 05/30 N 0055A-[address] [place] [address]- [facility] Sodium 137 mmol/L 136 - 145 05/30 N 0055A-[address] [place] [address]- [facility] ALT 19 U/L 5 - 55 05/30 N 0055A-[address] [place] [address]- [facility] Calcium 9.6 mg/dL 8.4 - 10.2 05/30 N 0055A-[address] [place] [address]- [facility] BUN/Creat Ratio 15 mg/dL 12 - 20 05/30 N 0055A-[address] [place] [address]- [facility] BUN 17 mg/dL 7 - 20 05/30 N 0055A-[address] [place] [address]- [facility] Bilirubin Total 0.4 mg/dL 0.2 - 1.2 05/30 N 0055A-[address] [place] [address]- [facility] AST 22 U/L 5 - 34 05/30 N 0055A-[address] [place] [address] Chemistry eGFR CKD EPI 53 mL/min /1.73_ m2 05/30 Interpretive Data: Estimated Glomerular Filtration Rate (eGFR) calculated using the 2020 Chronic Kidney Disease-Epid emiology (CKD-EPI) Collaboratio n creatinine equation; units of measure are mL/min/1.73 m2. Results are only valid for adults (>=18 years) whose serum creatinine is in steady state. eGFR calculations are not valid for patients with acute kidney injury and for patients on dialysis. Creatinine-b ased estimates of kidney function may also be inaccurate in patients with reduced creatinine generation due to decreased muscle mass (e.g., malnutrition , severe hypoalbumine malia, sarcopenia, chronic neuromuscula r disease, amputations, severe heart failure or liver disease) and in patients with increased creatinine generation due to increased muscle mass (e.g., muscle builders, anabolic steroids) or increased dietary intake. CKD is diagnosed based on abnormalitie s of kidney structure or function, present for >3 months, with implications for health and disease. CKD is classified and staged based on cause, eGFR and albuminuria (quantified as urine albumin to creatinine ratio). An eGFR >60 mL/min/1.73 m2 in the absence of increased urine albumin excretion or structural abnormalitie s does not CKD. eGFR provides only an estimate of measured GFR within +/- 30% for most patients. As mentioned, nutritional status and muscle mass, among many factors, may lead to inaccuracy in the estimate. Consider ordering the creatinine-c ystatin C panel if better accuracy is needed for clinical decision-mirna ing. eGFR (mL/min/1.73 m2) CKD stage Interpretati on Normal 60-89 Mild decrease 45-59 Mild to moderate decrease 30-44 Moderate to severe decrease 15-29 Severe decrease <15 Kidney failure -[address] [place] [address] Hematology Eos Absolute 0.1 x10^3/ mcL 0.0 - 0.7103 03/18 N 005-[address] [place] [address] Hematology Baso Absolute 0.0 x10^3/ mcL 0.0 - 0.1103 03/18 N -[address] [place] [address] Hematology Basophil % Auto 0.4 % 0.0 - 2.5 03/18 N -[address] [place] [address] [place]son Absolute 0.5 x10^3/ mcL 0.2 - 0.8103 03/18 N 0055A-[address] [place] [address] Hematology Monocyte % Auto 8 % 1 - 12 03/18 N 0055A-[address] [place] [address] Hematology Lymphocyte % Auto 30.2 % 20.0 - 40.0 03/18 N 0055A-[address] [place] [address] Hematology Lymph Absolute 1.7 x10^3/ mcL 1.2 - 4.0103 03/18 N 0055A-[address] [place] [address] Hematology Eosinophil % Auto 2 % 0 - 5 03/18 N - [address] [place] [address] Hematology Neutrophil % Auto 58.4 % 46.0 - 77.0 03/18 N - [address] [place] [address] Hematology Neutro Absolute 3.2 x10^3/ mcL 2.0 - 7.0103 03/18 N [address] [place] [address] Chemistry eGFR CKD EPI 59 mL/min /1.73_ m2 03/18 Interpretive Data: Estimated Glomerular Filtration Rate (eGFR) calculated using the 2020 Chronic Kidney Disease-Epid emiology (CKD-EPI) Collaboratio n creatinine equation; units of measure are mL/min/1.73 m2. Results are only valid for adults (>=18 years) whose serum creatinine is in steady state. eGFR calculations are not valid for patients with acute kidney injury and for patients on dialysis. Creatinine-b ased estimates of kidney function may also be inaccurate in patients with reduced creatinine generation due to decreased muscle mass (e.g., malnutrition , severe hypoalbumine malia, sarcopenia, chronic neuromuscula r disease, amputations, severe heart failure or liver disease) and in patients with increased creatinine generation due to increased muscle mass (e.g., muscle builders, anabolic steroids) or increased dietary intake. CKD is diagnosed based on abnormalitie s of kidney structure or function, present for >3 months, with implications for health and disease. CKD is classified and staged based on cause, eGFR and albuminuria (quantified as urine albumin to creatinine ratio). An eGFR >60 mL/min/1.73 m2 in the absence of increased urine albumin excretion or structural abnormalitie s does not CKD. eGFR provides only an estimate of measured GFR within +/- 30% for most patients. As mentioned, nutritional status and muscle mass, among many factors, may lead to inaccuracy in the estimate. Consider ordering the creatinine-c ystatin C panel if better accuracy is needed for clinical decision-mirna ing. eGFR (mL/min/1.73 m2) CKD stage Interpretati on Normal 60-89 Mild decrease 45-59 Mild to moderate decrease 30-44 Moderate to severe decrease 15-29 Severe decrease <15 Kidney failure 0055A-[address] [place] [address] Hematology RDW 13.2 % 11.0 - 14.9 03/18 N 0055A-[address] [place] [address] Hematology Platelets 262.0 x10^3/ mcL 150.0 - 450.0103 03/18 N 0055A-[address] [place] [address] Hematology RBC 3.9 x10^6/ mcL 3.6 - 5.0106 03/18 N 0055A-[address] [place] [address] Hematology MPV 9.7 fL 7.4 - 10.4 03/18 N 0055A-[address] [place] [address] Hematology WBC 5.5 x10^3/ mcL 4.0 - 11.0103 03/18 N 0055A-[address] [place] [address] Hematology Hematocrit 35 % 34 - 46 03/18 N 0055A-[address] [place] [address] Hematology MCV 89 fL 80 - 97 03/18 N 0055A-[address] [place] [address] Hematology MCH 29 pg 28 - 33 03/18 N 0055A-[address] [place] [address] Hematology MCHC 32.8 g/dL 33.0 - 36.5 03/18 L 0055A-[address] [place] [address] Hematology Hemoglobin 11.4 g/dL 11.0 - 15.0 03/18 N 0055A-[address] [place] [address] Chemistry TSH 0.304 mIU/L 0.270 - 4.200 03/18 N Interpretive Data: Recommend: TPO/Thyroper oxidase Antibody when TSH result is > 4.2 uIU/mL 5600A-U SAFSAM EPIL[facility] Chemistry Albumin 4.10 g/dL 3.50 - 5.20 03/18 N 0055A-[address] [place] [address] Chemistry AGAP 9.00 0.00 - 15.00 03/18 N -[address] [place] [address] Chemistry Glucose Lvl 92 mg/dL 74 - 99 03/18 N 0055A-[address] [place] [address] Chemistry Creatinine Level 1.00 mg/dL 0.57 - 1.11 03/18 N 0055A-[address] [place] [address] Chemistry Potassium Lvl 4.5 mmol/L 3.5 - 5.1 03/18 N 0055A-[address] [place] [address] Chemistry Sodium 140 mmol/L 136 - 145 03/18 N 0055A-[address] [place] [address] Chemistry Phosphorus 3.3 mg/dL 2.3 - 4.7 03/18 N 005-[address] [place] [address] Chemistry BUN/Creat Ratio 28 mg/dL 12 - 20 03/18 H -[address] [place] [address] Chemistry BUN 28 mg/dL 7 - 20 03/18 H -[address] [place] [address] Chemistry Calcium 10.4 mg/dL 8.4 - 10.2 03/18 H -[address] [place] [address] Chemistry CO2 25 mmol/L 22 - 29 03/18 N -[address] [place] [address] Chemistry Chloride 106 mmol/L 98 - 107 03/18 N -[address] [place] [address] Chemistry Hemoglobin A1c 5.4 % 4.0 - 5.6 03/18 N Interpretive Data: Normal: 4.0 - 5.6% Increased Risk: 5.7 - 6.4% Diabetic Range: 6.5% For patients without diabetes, the normal range for the hemoglobin A1c test is between 4% and 5.6%. Hemoglobin A1c levels between 5.7% and 6.4% indicate increased risk of diabetes, and levels of 6.5% or higher indicate diabetes. Because studies have repeatedly shown that saj-ts-aogvl ol diabetes results in complication s from the disease, the goal for people with diabetes is a hemoglobin A1c less than 7%. The higher the hemoglobin A1c, the higher the risks of developing complication s related to diabetes. If confirmation is needed, consider recalling the patient and ordering Hemoglobin Electrophore sis. 005-[address] [place] [address] Chemistry eAvg Glucose 108 mg/dL 03/[address] [place] [address] Chemistry HDL Cholesterol 66 mg/dL 40 - 59 03/18 H Interpretive Data: HDL (HIGH DENSITY LIPOPROTEIN) : ADULTS: Low: < 40 mg/dL High: >/= 60 mg/dL AGES 0 -19: Low: < 40 mg/dL Borderline Low: 40 - 45 mg/dL Acceptable: > 45 mg/dL [address] [place] [address] Chemistry LDL 87 mg/dL 100 - 130 03/18 L Interpretive Data: AGES 0-19: Desirable: < 110 mg/dL Borderline High: 110-129 mg/dL High: >/= 130 mg/dL ADULTS: Desirable: <100 mg/dL Near/above optimal: 100-130 mg/dL Borderline High: 131-159 mg/dL High: 160-189 mg/dL Very High: 190 mg/dL [address] [place] [address] Chemistry LDL/HDL 1 03/[address] [place] [address] Chemistry Triglycerid es 77 mg/dL 7 - 149 03/18 N Interpretive Data: AGES 0-9: Desirable: < 75 mg/dL Borderline High: 75-99 mg/dL High: >/= 100 mg/dL AGES 10-19: Desirable: < 90 mg/dL Borderline High: 90-129 mg/dL High: >/= 130 mg/dL ADULTS: Desirable: < 150 mg/dL Borderline High: 150-199 mg/dL High: >/= 240 mg/dL Very High: >/= 500 mg/dL [address] [place] [address] Chemistry Chol/HDL 3 mg/dL 03/[address] [place] [address] Chemistry Cholesterol Total 166 mg/dL 03/18 N Interpretive Data: According to the [place] [employer]: AGES 0-19: Desirable: < 170 mg/dL Borderline High: 170-199 mg/dL High Blood Cholesterol: >/= 200 mg/dL ADULTS: Desirable < 200 mg/dL Borderline High: 200-239 mg/dL High Blood Cholesterol: >/= 240 mg/dL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
[2024-07-10 14:30] LABS: Albumin Level 4.5 g/dL (3.5-5.1); Anion Gap 16 mmol/L (4-12); Blood Urea Nitrogen 38 mg/dL (7-17); Calcium 9.8 mg/dL (8.4-10.2); Carbon Dioxide 20 mmol/L (22-30); Chloride 103 mmol/L (98-107); Estimated Glomerular Filt Rate 26; Glucose 123 mg/dL (65-110); Potassium 4.2 mmol/L (3.4-5.0); Sodium 139 mmol/L (137-145)
[2024-07-10 14:44] LABS: Parathyroid Intact 42.1 pg/mL (14.5-75.2)
[2024-07-10 14:48] LABS: Vitamin D 25 Hydroxy 96.2 ng/mL
== END 2024-07-10 13:11 | disposition home or self-care (01) ==
PROVIDERS: PCP Internal Medicine; Visit Provider Internal Medicine Endocrinology, Diabetes & Metabolism
DX: E03.9 Hypothyroidism, unspecified (principal); M81.0 Age-related osteoporosis without current pathological fracture; R79.89 Other specified abnormal findings of blood chemistry
CPT/HCPCS: 36415; 80069; 82306; 83970; 84439; 84443

== ENCOUNTER 2024-07-12 12:29 | Outpatient (CLI) | payer MEDICARE, OTHER, SELFPAY ==
[2024-07-12 13:31] LABS: Creatinine Urine 93.4 mg/dL
--- OUTSIDE RECORDS SUMMARY | 2024-07-12 13:31 | XMS_ITS | Clinical Summary ---
Author Organization [facility] Address [address] [place] [id number] Care Team Providers Care Manager Statistical Programming Name Role Phone Rufino Randolph MD Unavailable Marilee Carvalho MD Primary Care Provider [phone] Allergies Active Allergy Reactions Criticality Noted Date [...] EC tablet 3 Active cholecalciferol (VITAMIN D-3) 93423 unit capsule Take 1 capsule (10,000 Units [...] (05/13/2018): Added automatically from request for surgery [id number] Primary osteoarthritis of left knee 04/26/2018 Preop cardiovascular exam 04/15/2018 Essential hypertension 04/15/2018 Hyperlipidemia LDL goal <100 04/15/2018 Hypothyroidism 04/15/2018 Coronary artery disease invo lving nondalton coronary artery of nondalton heart without angina pectoris 04/15/2018 Resolved Problems [...] on file 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.] FOR LIFE MEDICARE FOR LIFE Care Teams Manager Statistical Programming Relationship Specialty Start [place] [address] [place] [address] PCP - General Internal Medicine 06/19/24 Rufino Randolph MD Referring Physician Internal Medicine 12/13/17
--- OUTSIDE RECORDS SUMMARY | 2024-07-12 13:32 | XMS_ITS | Continuity of Care Document ---
Author Organization [facility] Address [address] [address] [place] [id number] Phone Care Team Providers Care Heavy Equipment Rental Associate Name Role Phone Bora Rebolledo MD Unavailable [...] Providers Copied on Encounter [facility], [address], [place], [address], [place] tel:[phone] [facility] No Information 0 Kesha Sahni. [address], [place], [place], [address]. tel:[phone] OFFICE/OUTPA TIENT VISIT EST [facility], [address], [place], [address], [place] tel:[phone] [facility] Status post total left knee replacement 0 Boxdorfer Candy. [address], [place], [place], [address]. tel:[phone] OFFICE/OUTPA TIENT VISIT EST [facility], [address], [place], [address], [place] tel:[phone] [facility] Right hip painBody mass index (BMI) 32.0-32.9, adultTrochanter ic bursitis of right hip 9 Boxdorfer Candy. [address], [place], [place], [address]. tel:[phone] OFFICE/OUTPA TIENT VISIT EST [facility], [address], [place], [address], [place] tel:[phone] [facility] Status post total left knee replacement 9 Boxdorfer Candy. [address], [place], [place], [address]. tel:[phone] [facility], [address] [address], [place], [address], [place] tel:[phone] [facility] Status post total left knee replacement 9 Kesha Sahni. [address], [place], [place], [address]. tel:[phone] [facility], [address], [place], [address], [place] tel:[phone] [facility] Status post total left knee replacementPrim jurgen osteoarthritis of left knee 9 Kesha Sahni. [address], [place], [place], [address]. tel:[phone] [facility], [address] [address], [place], [address], [place] tel:[phone] [facility] Status post total left knee replacement 9 Kesha Sahni. [address], [place], [place], [address]. tel:[phone] [facility], [address] [address], [place], [address], [place] tel:[phone] [facility] Status post total left knee replacementPrim jurgen osteoarthritis of left kneeBody mass index (BMI) 32.0-32.9, adult 9 Shobha Sahni. [address], [place], [place], [address]. tel:[phone] [facility], [address] [address], [place], [address], [place] tel:[phone] [facility] Status post total left knee replacement 9 Wilmandamilynn Gupta. [address], [place], [place], [address]. tel:[phone] [facility], [address] [address], [place], [address], [place] tel:[phone] [facility] Osteoarthritis of left knee, unspecified osteoarthritis type 8 Kesha Sahni. [address], [place], [place], [address]. tel:[phone] OFFICE/OUTPA TIENT VISIT EST [facility], [address] [facility] [address], [place], [address], [place] tel:[phone] [facility] Osteoarthritis of left knee, unspecified osteoarthritis type 8 Boxdorfer Candy. [address], [place], [place], [address]. tel:[phone] OFFICE/OUTPA TIENT VISIT EST [facility], [address] [facility] [address], [place], [address], [place] tel:[phone] [facility] Left knee pain, unspecified chronicityEssen tial (primary) hypertensionOst eoarthritis of left knee, unspecified osteoarthritis type 8 Boxdorfer Candy. [address], [place], [place], [address]. tel:[phone] OFFICE/OUTPA TIENT VISIT NEW [facility], [address] [facility] [address], [place], [address], [place] tel:[phone] [facility] Left knee pain, unspecified chronicityBody mass index (BMI) 34.0-34.9, adultOsteoarthr itis of left knee, unspecified osteoarthritis type 7 Kesha Sahni. [address], [place], [place], [address]. tel:[phone] OFFICE/OUTPA TIENT VISIT EST [facility], [address] [facility] [address], [place], [address], [place] tel:[phone] [facility] Enthesopathy of hip region 3 Kesha Sahni. [address], [place], [place], [address]. tel:[phone] Referring Provider: Efrain Argueta [address] [place], [address]. tel:[phone] OFFICE/OUTPA TIENT VISIT EST [facility], [address], [place], [address], [place] tel:[phone] [facility] bilateral hip pain (chief complaint) Enthesopathy of hip regionHypertens ion, Unspecified 0[address] Kesha Sahni. [address], [place], [place], [address]. tel:[phone] Referring Provider: Efrain Argueta, [address] [place], [address]. tel:[phone] Family History Family Member Type Diagnosis Age [...] party ID Authoriza tion(s) Medicare E2 OT [id number] For [employer] OT [id number] Social History Type Description Quantity Date Captured [...] to Status post total left knee replacement Weight loss reduces stress on joints. Related to Osteoarthritis of left knee, unspecified osteoarthritis type Home exercise program. Related t o Osteoarthritis of left knee, unspecified osteoarthritis type Home exercise program. Related t o Osteoarthritis of left knee, unspecified osteoarthritis type Giving encouragement to exercise Related to Body mass index (BMI) 34.0-34.9, adult Home exercise program. Related t o Left [...]
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
--- OUTSIDE RECORDS SUMMARY | 2024-07-12 13:32 | XMS_ITS | Referral Summary ---
Author Organization [facility] Address [address] [place] [id number] Care Team Providers Care Brickmason Supervisor Name Role Phone Rufino Randolph MD Unavailable Marilee Carvalho MD Primary Care Provider [phone] Allergies Active Allergy Reactions Criticality Noted Date [...] EC tablet 3 Active cholecalciferol (VITAMIN D-3) 07326 unit capsule Take 1 capsule (10,000 Units [...] (05/13/2018): Added automatically from request for surgery [id number] Primary osteoarthritis of left knee 04/26/2018 Preop cardiovascular exam 04/15/2018 Essential hypertension 04/15/2018 Hyperlipidemia LDL goal <100 04/15/2018 Hypothyroidism 04/15/2018 Coronary artery disease invo lving [place] coronary artery of [place] heart without angina pectoris 04/15/2018 Resolved Problems [...] on file 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 Gender Identity Not on file Sexual Orientation Not on file Last Filed Vital Signs Vital Sign Reading Time Taken Comments Blood Pressure 138/88 02/21/2024 11:12 AM MATERIAL PREPARATION WORKER Pulse 72 02/21/2024 9:42 AM MATERIAL PREPARATION WORKER Temperature - - Respiratory Rate - - Oxygen Saturation 99% 02/21/2024 9:42 AM MATERIAL PREPARATION WORKER Inhaled Oxygen Concentration - - Weight 76.7 kg (169 lb) 02/21/2024 9:42 AM MATERIAL PREPARATION WORKER Height 154.9 cm (5' 1 ) 02/21/2024 9:42 AM MATERIAL PREPARATION WORKER Body Mass Index 31.93 02/21/2024 9:42 AM MATERIAL PREPARATION WORKER Plan of Treatment Not on file Insurance MEDICARE [employer] MEDICARE FOR LIFE MEDICARE [facility] Address: [address] [address] FOR LIFE MEDICARE [facility] FOR LIFE Care Teams Brickmason Supervisor Relationship Specialty Start [place] [address] [address] PCP - General Internal Medicine 06/19/24 Rufino Randolph MD Referring Physician Internal Medicine 12/13/17
--- OUTSIDE RECORDS SUMMARY | 2024-07-12 13:32 | XMS_ITS | Clinical Summary ---
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 Active levothyroxine 100 mcg tablet Take 100 mcg by mouth daily stonemason Takes on opposite days of 88 mcg dose . Active levothyroxine 88 mcg tablet Take 88 mcg by mouth daily stonemason Takes opposite days of 100mcg . Active atorvastatin (LIPITOR) 40 mg tablet Take 40 mg by mouth daily at bedtime. Active cetirizine (ZyrTEC) 10 mg tablet Take 10 mg by mouth daily at bedtime. Active fluticasone (FLONASE) 50 mcg/spray [place], Suspension 2 Sprays by See Admin Instructions route see administration instructions Takes opposite days of fortical . Active calcitonin, [place], (FORTICAL) 200 unit/actuation [place], Non-Aerosol Administer 1 [place] in each nostril see administration instructions Takes [...] times daily. 60 Tablet 9 10:35 AM HEEL SANDER RUBBER 04/27/19 19 Active rivaroxaban (XARELTO) 10 mg TabletIndications: Primary osteoarthritis of left knee Take 1 Tablet (10 mg) by mouth daily. 21 Tablet 9 10:35 AM HEEL SANDER RUBBER 04/27/19 19 Active HYDROcodone-acetam inophen (NORCO) 5-325 mg tabletIndications: Primary osteoarthritis of left knee Take 1 Tablet by mouth every 4 hours as needed for moderate pain. Max Daily Amount: 6 Tablets 42 Tablet 9 10:35 AM HEEL SANDER RUBBER 04/27/19 19 Active Active Problems Problem Noted [...] Comments Blood Pressure 137/87 04/28/2018 8:05 AM HEEL SANDER RUBBER Pulse 63 04/28/2018 8:05 AM HEEL SANDER RUBBER Temperature 36.7 C (98.1 F) 04/28/2018 4:05 AM HEEL SANDER RUBBER Respiratory Rate 16 04/28/2018 8:05 AM HEEL SANDER RUBBER Oxygen Saturation 99% 04/28/2018 8:05 AM HEEL SANDER RUBBER Inhaled Oxygen Concentration - - Weight 80.7 kg (178 lb) 04/26/2018 7:52 AM HEEL SANDER RUBBER Height 156.2 cm (5' 1.5 ) 04/14/2018 9:51 AM HEEL SANDER RUBBER Body Mass Index 33.09 04/14/2018 9:51 AM HEEL SANDER RUBBER Plan of Treatment Health Maintenance Due Date [...] series) 2024 Medical Devices Implanted Type Area Strategic Communications Specialist Device Identifier Shelf Expiration Date Model / Serial / Lot Cement Depuy1 40grams 3312-040 - Snone Implanted:Qty : 1 on 04/26/2018 by Bora Rebolledo MD at [facility] Cement Left: Knee [employer] 07/26/2020 [id number] / NONE / [id number] Description: [id number] Comp Tib Attn Fb Cmnt Sz3 [id number] - Snone Implanted:Qty : 1 on 04/26/2018 by Bora Rebolledo MD at [facility] Knee Left: Knee [employer]- MED [employer]OD 01/27/2028 [id number] / NONE / [id number] Description: Comp Fem Attn Cr Cmnt Sz4 1504-00-104 - Snone Implanted:Qty : 1 on 04/26/2018 by Bora Rebolledo MD at [facility] Knee Left: Knee [employer] 02/26/2028 [id number] / NONE / [id number] Description: Patella Attune Dome 32mm [id number] - Snone Implanted:Qty : 1 on 04/26/2018 by Bora Rebolledo MD at [facility] Knee Left: Knee [employer] 02/25/2023 [id number] / NONE / [id number] Description: Ins Attn Fb Cr Sz4 5mm 1516-20-405 - Snone Implanted:Qty : 1 on 04/26/2018 by Bora Rebolledo MD at [facility] Knee Left: Knee [employer] 09/25/2022 [id number] / NONE / [id number] Description: Knee Insurance MEDICARE PART A AND B FOR LIFE [employer] Advance Directives For more information, please contact: [phone] * Full Code (Latest Code Status on File) Date Activated Date Inactivated Comments 04/26/2018 4:26 PM 04/28/2018 2:11 PM Care Teams Otr Refrigerated Cdl Truck Driver Relationship Specialty Start Date End Date [facility], External Provider [address] [place] [address] PCP - General 04/14/18
--- OUTSIDE RECORDS SUMMARY | 2024-07-12 13:32 | XMS_ITS | Clinical Summary ---
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 Until receives from other pharmacy. 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 03/16/2024 Skin rash 03/16/2024 Myofascial low back pain 07/09/2023 Fusion of spine of thoracolumbar region 06/07/19 24 Burst fracture of lumbar sarahi tebra, closed, initial encounter ([facility]) 05/20/2023 Screening for colon cancer 11/26/2021 Overview (11/26/2021): Added automatically from request for surgery [id number] Hx of colonic polyps 11/26/2021 Overview (11/26/2021): Added automatically from request for surgery [id number] Gastroesophageal reflux disease without esophagi tis 11/26/2021 Overview (11/26/2021): Added automatically from request for surgery [id number] Esophageal dysphagia 11/26/2021 Overview (11/26/2021): Added automatically from request for surgery [id number] Resolved Problems Problem Noted Date Diagnosed Date Resolved Date Need for immunization against influenza 03/16/2024 03/20/2024 Thoracic spine instability 05/20/2023 0 06/07/2023 Encounters Date Type Department Care Team Description 07/06/2024 Orders Only [facility] Internal [address] [phone] Marilee Carvalho MD 06/28/2024 1:20 PM CDT Office Visit [address] [phone] Ayse Gray, PA Eye Problem (Pt has a bump on right eye lid, itched only at the beginning, entire eye swollen when it started /) 06/28/2024 Travel 06/05/2024 5:08 PM CDT - 06/05/2024 11:59 PM CDT Hospital Encounter [facility] [address] [place] [id number] Ayse Gray, [place] Discharge Disposition: Home or Self Care (Routine Discharge) 06/05/2024 1:20 PM CDT Office Visit [address] [phone] Ayse Gray, [place] UTI (Pt c/o poss UTI, having urgency and cloudy urine /) 06/05/2024 Travel 05/25/2024 2:26 PM AIR TRAFFIC CONTROL OPERATOR - 05/25/2024 11:59 PM AIR TRAFFIC CONTROL OPERATOR Hospital Encounter [facility] Imaging [address] [place] [address] Lucia Umana MD Discharge Disposition: Home or Self Care (Routine Discharge) 05/25/2024 Travel 05/18/2024 3:00 PM AIR TRAFFIC CONTROL OPERATOR Office Visit [facility] [address], [address] [place] [address] Agnes Begum SCHOOL PROGRAM DIRECTOR Follow Up (F/U with 2 CT scans ) 05/18/2024 Travel 05/17/2024 8:35 AM AIR TRAFFIC CONTROL OPERATOR - 05/17/2024 11:59 PM AIR TRAFFIC CONTROL OPERATOR Hospital Encounter [facility] [address] [place] [address] Agnes Begum, SCHOOL PROGRAM DIRECTOR Discharge Disposition: Home or Self Care (Routine Discharge) 05/17/2024 Travel 05/08/2024 Scan HEALTH INFO SRVCS Scanned, [facility] 04/20/2024 Orders Only [facility] Family & Internal Medicine [address] [phone] Marilee aCrvalho MD 04/20/2024 Telephone [facility] Family & Internal Medicine [address] [phone] Marilee Carvalho MD Medication from Last 3 [...] (TDVAX) 04/15/2022,03/06/2002 Tdap (Generic) 03/24/2012 Zoster (Zostavax) 94005 Unt/0.65Ml 02/22/2012 Family History Medical History Relation [...] drink = 0.6 oz pur e alcohol) [facility] Electronifieities Answer Date Recorded In the past 12 months has [employer], oil, or water [employer] threatened to shut off services in your [...] Recorded Patient Health Questionnaire-2 Score 0 05/18/2024 [facility] [place] of Occupat ional Health - Occupational Stress [...] place to sleep or slept in a half-way (including now)? No 05/20/2023 Comments No Sex and Gender Information Value Date Recorded Sex Assigned at Female 05/17/2024 8:29 AM AIR TRAFFIC CONTROL OPERATOR Legal Sex Female 12:52 PM CDT Gender [...] Description 10/12/2024 9:20 AM CDT Office Visit [facility] Family & Internal Medicine - [place] [id number] [place] [phone] [place] [address] [address] Health Maintenance Due Date Last [...] or 60+ Years Completed 03/31/2023 PHQ-2 (Physician [place]) Completed 05/18/2024 Dexa Scan (General) Completed 05/25/2024, [...] perform ADLs independently Lifestyle No Isabel Mary, ENGINEER EXHAUSTERmusic education director Devices Implanted Type Area Defect Repairer Glassware Device Identifier Shelf Expiration Date Model / Serial / Lot Graft Bone Infuse Medtronic Large Kit - [id number] Implanted:Qt y: 1 on 05/21/2023 by Kulwinder Almaraz MD at [facility] Bone N/A: Spine Lumbar [employer] [id number] 09/26/2024 [id number] / / [id number] Filler Bone 5cc 12.5cc Calcium Sulfate Stimulan Rapid Cure - [id number] Implanted:Qt y: 1 on 05/21/2023 by Kulwinder Almaraz MD at [facility] Bone N/A: Spine Lumbar [employer] [id number] 04/28/2025 [id number] / / [id number] Description:SOAKED IN TOBRAM YCIN AND VANCOMYCIN Implant Magnifuse Bone Graft 1 X 10cm - [id number] Implanted:Qt y: 1 on 05/21/2023 by Kulwinder Almaraz MD at [facility] Bone N/A: Spine Lumbar [employer] SPIN[employer] [id number] 12/20/2024 [id number] / [id number] / Implant Magnifuse Bone Graft 1 X 5cm - [id number] Implanted:Qt y: 1 on 05/21/2023 by Kulwinder Almaraz MD at [facility] Bone N/A: Spine Lumbar [employer] X[employer]ED [employer] - DIV [id number] 11/01/2024 [id number] / [id number] / Vertaplex Hv Bone Cement Implanted:Qt y: 1 on 05/21/2023 by Kulwinder Almaraz MD at [facility] Cement Implant N/A: Spine Lumbar [employer] DIV MEGAN ROLDAN [id number] 01/26/2025 [id number] / / [id number] Vertaplex Hv Bone Cement Implanted:Qt y: 1 on 05/21/2023 by Kulwinder Almaraz MD at [facility] Cement Implant N/A: Spine Lumbar [employer] DIV MEGAN ROLDAN [id number] 06/26/2024 [id number] / / [id number] 5.5 X 500 Mm Kameron Implanted:Qt y: 1 on 05/21/2023 by Kulwinder Almaraz MD at [facility] Kameron N/A: Spine Lumbar [employer] [id number] / / Solera Set Screws Implanted:Qt y: 10 on 05/21/2023 by Kulwinder Almaraz MD at [facility] Screw N/A: Spine Lumbar [employer] [id number] / / 4.5 X 35 Mm Screw Implanted:Qt y: 1 on 05/21/2023 by Kulwinder Almaraz MD at [facility] Screw N/A: Spine Lumbar [employer] [id number] / / 4.5 X 40 Mm Screw Implanted:Qt y: 4 on 05/21/2023 by Kulwinder Almaraz MD at [facility] Screw N/A: Spine Lumbar [employer] [id number] / / 4.5 X 45 Mm Screws Implanted:Qt y: 2 on 05/21/2023 by Kulwinder Almaraz MD at [facility] Screw N/A: Spine Lumbar [employer] [id number] / / 5.5 X 40 Mm Screw Implanted:Qt y: 1 on 05/21/2023 by Kulwinder Almaraz MD at [facility] Screw N/A: Spine Lumbar [employer] [id number] / / 5.5 X 25 Mm Screw Implanted:Qt y: 2 on 05/21/2023 by Kulwinder Almaraz MD at [facility] Screw N/A: Spine Lumbar [employer] [id number] / / Kit Case 4.2mm Eugenio - [id number] Implanted:Qt y: 2 on 05/21/2023 [facility] N/A: Spine Lumbar [employer] - DIV MEGAN ROLDAN [id number] / / Procedures Procedure Name Priority Date/Time Associated Diagnosis Comments URINE BACTERIA CULTURE Routine 06/05/2024 1:26 PM CDT UTI symptoms Acute cystitis with hematuria URINALYSIS AUTO DIP Routine 06/05/2024 UTI symptoms Acute cystitis with hematuria BONE DENSITY/DEXA Routine 05/25/2024 3:1 2 PM AIR TRAFFIC CONTROL OPERATOR Asymptomatic menopausal state Age-related osteoporosis without current pathological fracture CT THOR SPINE WO CON Routine 05/17/2024 8:49 AM AIR TRAFFIC CONTROL OPERATOR Fusion of spine of thoracolumbar region CT LUMB SPINE WO CON Routine 05/17/2024 8:49 AM AIR TRAFFIC CONTROL OPERATOR Fusion of spine of thoracolumbar region COLONOSCOPY GENERIC (SCAN ORDER) 02/04/2017 from Last 3 Months or Most Recently Relevant to Health Maintenance Results * (ABNORMAL) URINE BACTERIA CULTURE (06/05/2024 1:26 PM CDT) SPEC DESCRIPTION URINE CLEAN CATCH 06/05/2024 5:08 PM CDT [facility] SPECIAL REQUESTS NO SPECIAL REQUEST 06/05/2024 5:08 PM CDT [facility] CULTURE RESULT >100,000 COL/ML ESCHERICHIA COLI (A) 06/07/2024 8:16 AM CDT [facility] URINE SPECIMEN OBTAINED BY [...] MICROBIOLOGY - GENERAL ORDER MAYTE Final Result [facility] [address] [place] [address], [place] [phone] [facility] [address] [place] [address], [place] [phone] * (ABNORMAL) URINALYSIS AUTO DIP (06/05/2024) COLOR (U) YELLOW YELLOW MG-[id number], [place] TRANSPARENCY CLOUDY(A) CLEAR MG-[address] GLU[facility]SE (U) NEGATIVE NEGATIVE MG/DL MG-[address] BILIRUBIN (U) NEGATIVE NEGATIVE MG-[address] KETONES MG/DL (U) NEGATIVE NEGATIVE MG/DL MG-[address], [place] SPECIFIC GRAVITY (U) 1.015 1.001 - 1.035 MG-[address], [place] BLOOD (U) SMALL (1+, Hemolyzed)(A ) NEGATIVE MG-[address], [place] U PH 6.0 5.0 - 9.0 MG-[address] PROTEIN (U) NEGATIVE NEGATIVE mg/dL MG-[address], [place] UROBILINOGEN 0.2 0.2 - 1.0 EU/dL = mg/dL MG-[address], [place] NITRITES NEGATIVE NEGATIVE MG/DL MG-[address] LEUKOC[facility]TES (U) 3+ (LARGE)(A) NEGATIVE MG-[address], [place] URINE SPECIMEN OBTAINED BY CLEAN CATCH PROCEDURE / Unknown 06/05/2024 us Ayse CHURCH URINE ORDERABLES Final Resul t -[id number], [place] [address] [place] [address], * BONE DENSITY/DEXA (05/25/2024 3:12 PM AIR TRAFFIC CONTROL OPERATOR) Anatomical Region Laterality Modality Bone Bone Density 05/26/2024 7:48 AM AIR TRAFFIC CONTROL OPERATOR Impressions 05/26/2024 7:50 AM AIR TRAFFIC CONTROL OPERATOR IMPRESSION: WHO Classification: Osteopenia RECOMMENDATIONS: All patients [...] 05/26/2024 7:48 AM Narrative 05/26/2024 7:50 AM AIR TRAFFIC CONTROL OPERATOR [facility] [address] [place] [address] EXAMINATION: BONE DENSITY/DEXA INDICATIONS: Asymptomatic menopausal state [...] Procedure Note Hever Amaro MD - 05/26/2024 [facility] [address] [place] [address] EXAMINATION: BONE DENSITY/DEXA INDICATIONS: Asymptomatic menopausal state [...] THOR SPINE WO CON (05/17/2024 8:49 AM AIR TRAFFIC CONTROL OPERATOR) Anatomical Region Laterality Modality Spine Computed Tomogra phy 05/19/2024 7:53 AM AIR TRAFFIC CONTROL OPERATOR Impressions 05/19/2024 8:08 AM AIR TRAFFIC CONTROL OPERATOR IMPRESSION: THORACIC SPINE: 1. Status post posterior [...] 05/19/2024 7:53 AM Narrative 05/19/2024 8:08 AM AIR TRAFFIC CONTROL OPERATOR [address] [address] EXAMINATION:CT of the thoracic and lumbar spine [...] Procedure Note Alexis Alejandro MD - 05/19/[address] [address] EXAMINATION:CT of the thoracic and lumbar spine [...] There is a chronic compression fracture of F19neov depression of superior endplate and 30% loss [...] There is a chronic compression fracture of G07tson depression of superior endplate and 30% loss [...] MD, 05/19/2024 7:53 AM us Agnes Begum SCHOOL PROGRAM DIRECTOR CT Final Resu lt * CT LUMB SPINE WO CON (05/17/2024 8:49 AM AIR TRAFFIC CONTROL OPERATOR) Anatomical Region Laterality Modality Spine Computed Tomogra phy 05/19/2024 7:53 AM AIR TRAFFIC CONTROL OPERATOR Impressions 05/19/2024 8:08 AM AIR TRAFFIC CONTROL OPERATOR IMPRESSION: THORACIC SPINE: 1. Status post posterior [...] 05/19/2024 7:53 AM Narrative 05/19/2024 8:08 AM AIR TRAFFIC CONTROL OPERATOR [address] [address] EXAMINATION:CT of the thoracic and lumbar spine [...] Procedure Note Alexis Alejandro MD - 05/19/[address] [address] EXAMINATION:CT of the thoracic and lumbar spine [...] There is a chronic compression fracture of A83cdaa depression of superior endplate and 30% loss [...] There is a chronic compression fracture of E28isor depression of superior endplate and 30% loss [...] Alejandro MD, 05/19/2024 7:53 AM Agnes Begum SCHOOL PROGRAM DIRECTOR CT Final Resu lt * COLONOSCOPY GENERIC (SCAN ORDER) (02/04/2017) 02/04/2017 us [facility] Scanned SCANNING Final Resu lt from Last 3 Months or Most Recently Relevant to Health Maintenance Insurance MEDICARE [facility] Advance Directives * Full Code (Latest Code Status on File) Date Activated Date Inactivated Comments 05/21/2023 1:09 PM 05/24/2023 8:38 PM * Full Code Date Activated Date Inactivated Comments 05/20/2023 6:45 PM 05/21/2023 1:09 PM * Full Code Date Activated Date Inactivated Comments 05/20/2023 6:03 PM 05/20/2023 6:45 PM Care Teams Epic Willow Analyst Relationship Specialty Start [place] [address] [address] PCP - General INTERNAL MEDICINE 02/18/24 Juan R Sosa MD [employer] Wirer CARDIOVASCULAR DISEASE 10/03/15
[2024-07-12 14:02] LABS: Creatinine 24 Hour Urine 1.2 gm/24 (0.8-1.8); Total Volume 24 Hour Urine 1350 ml
== END 2024-07-12 12:30 | disposition home or self-care (01) ==
LOC: ANHLAB 12:30
PROVIDERS: PCP Internal Medicine; Visit Provider Internal Medicine Endocrinology, Diabetes & Metabolism
DX: E03.9 Hypothyroidism, unspecified (principal); M81.0 Age-related osteoporosis without current pathological fracture; R79.89 Other specified abnormal findings of blood chemistry
CPT/HCPCS: 81050; 82340; 82570

== ENCOUNTER 2024-07-18 11:22 | Outpatient (CLI) | payer MEDICARE, OTHER, SELFPAY ==
[2024-07-18 12:43] LABS: Hemoglobin A1C 5.5 % (<5.7)
[2024-07-18 13:10] LABS: Anion Gap 12 mmol/L (4-12); Blood Urea Nitrogen 19 mg/dL (7-17); Calcium 9.2 mg/dL (8.4-10.2); Carbon Dioxide 21 mmol/L (22-30); Chloride 103 mmol/L (98-107); Estimated Glomerular Filt Rate 52; Glucose 112 mg/dL (65-110); Potassium 4.2 mmol/L (3.4-5.0); Sodium 136 mmol/L (137-145)
--- OUTSIDE RECORDS SUMMARY | 2024-07-18 13:16 | XMS_ITS | Clinical Summary ---
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 Until receives from other pharmacy. 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 90 tablet 3 03/16/20 24 025 Discontinu ed(Reorder ) sertraline (ZOLOFT) 100 MG tabletIndications :Anxiety associated with depression Take 1 tablet (100 mg total) by mouth daily. 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) 05/20/2023 Screening for colon cancer 11/26/2021 Overview (11/26/2021): Added automatically from request for surgery [id number] Hx of colonic polyps 11/26/2021 Overview (11/26/2021): Added automatically from request for surgery [id number] Gastroesophageal reflux disease without esophagi tis 11/26/2021 Overview (11/26/2021): Added automatically from request for surgery [id number] Esophageal dysphagia 11/26/2021 Overview (11/26/2021): Added automatically from request for surgery [id number] Resolved Problems Problem Noted Date Diagnosed Date Resolved Date Need for immunization against influenza 03/16/2024 03/20/2024 Thoracic spine instability 05/20/2023 0 06/07/2023 Encounters Date Type Department Care Team Description 07/06/2024 Orders Only [facility] Family & Internal [facility] [address] [place] [address] Marilee Carvalho MD 06/28/2024 1:20 PM CDT Office Visit [facility] Internal [address] [address] Ayse Gray, PA Eye Problem (Pt has a bump on right eye lid, itched only at the beginning, entire eye swollen when it started /) 06/28/2024 Travel 06/05/2024 5:08 PM CDT - 06/05/2024 11:59 PM CDT Hospital Encounter [facility] [address] [place] [address] Ayse Gray, PA Discharge Disposition: Home or Self Care (Routine Discharge) 06/05/2024 1:20 PM CDT Office Visit [facility] Internal [address] [address] Ayse Gray, PA UTI (Pt c/o poss UTI, having urgency and cloudy urine /) 06/05/2024 Travel 05/25/2024 2:26 PM SENIOR CORE JAVA DEVELOPER - 05/25/2024 11:59 PM SENIOR CORE JAVA DEVELOPER Hospital Encounter [facility] [address] [place] [address] Lucia Umana MD Discharge Disposition: Home or Self Care (Routine Discharge) 05/25/2024 Travel 05/18/2024 3:00 PM SENIOR CORE JAVA DEVELOPER Office Visit [facility] Multispecialty Care - [facility] [address] [facility], [address] [place] [address] Agnes Begum INTERNAL MEDICINE PHYSICIAN ASSISTANT Follow Up (F/U with 2 CT scans ) 05/18/2024 Travel 05/17/2024 8:35 AM SENIOR CORE JAVA DEVELOPER - 05/17/2024 11:59 PM SENIOR CORE JAVA DEVELOPER Hospital Encounter [facility] [address] [place] [address] Agnes Begum, INTERNAL MEDICINE PHYSICIAN ASSISTANT Discharge Disposition: Home or Self Care (Routine Discharge) 05/17/2024 Travel 05/08/2024 Scan [facility] Scanned, [facility] 04/20/2024 Orders Only [facility] Family & Internal [address] [address] Marilee Carvalho MD 04/20/2024 Telephone [facility] Family & Internal [address] [address] Marilee Carvalho MD Medication from Last 3 [...] (TDVAX) 04/15/2022,03/06/2002 Tdap (Generic) 03/24/2012 Zoster (Zostavax) 91149 Unt/0.65Ml 02/22/2012 Family History Medical History Relation [...] drink = 0.6 oz pur e alcohol) [facility] [place] [facility] [employer] Answer Date Recorded In the past 12 months has e [employer], gas, oil, or water [employer] threatened to shut off services in your [...] Recorded Patient Health Questionnaire-2 Score 0 05/18/2024 [facility] of Occupat ional Health - Occupational Stress [...] place to sleep or slept in a snf (including now)? No 05/20/2023 Comments No Sex and Gender Information Value Date Recorded Sex Assigned at Female 05/17/2024 8:29 AM SENIOR CORE JAVA DEVELOPER Legal Sex Female 12:52 PM CDT Gender [...] Description 10/12/2024 9:20 AM CDT Office Visit [facility] Family & Internal Medicine [facility] [address] [place] [address] [place] [address] [address] [place] [address] Health Maintenance Due Date Last Done Comments Hepatitis C 1968 Annual Medicare Wellness Visit 2014 COVID-19 Vaccine (2023- 5 season) 2023 02/17/2021, 05/29/2020, 05/01/2020 Colorectal Cancer Screening Colonoscopy (10 Years) 02/07/2032 02/06/2022, 02/04/2017 DTaP, Tdap and Td Vaccines ( 3 - Td or Tdap) 04/15/2032 04/15/2022, 03/24/2012, 03/06/2002 Pneumococcal Vaccine: 50+ Years Completed 10/19/2014, 04/19/2014 Zoster Vaccines Completed 06/26/2020, 03/15/2020, 02/22/2012 RSV Immunization or 60+ Years Completed 03/31/2023 PHQ-2 (Physician [place]) Completed 05/18/2024 Dexa Scan (General) Completed 05/25/2024, [...] perform ADLs independently Lifestyle No Isabel Mary, COLLECTIONS DIRECTORmanufacturing automation engineer Devices Implanted Type Area Tricot Knitter Device Identifier Shelf Expiration Date Model / Serial / Lot Graft Bone Infuse Medtronic Large Kit - [id number] Implanted:Qt y: 1 on 05/21/2023 by Kulwinder Almaraz MD at [facility] Bone N/A: Spine Lumbar [employer] [id number] 09/26/2024 [id number] / / [id number] Filler Bone 5cc 12.5cc Calcium Sulfate Stimulan Rapid Cure - [id number] Implanted:Qt y: 1 on 05/21/2023 by Kulwinder Almaraz MD at [facility] Bone N/A: Spine Lumbar [employer] [id number] 04/28/2025 [id number] / / [id number] Description:SOAKED IN TOBRAM YCIN AND VANCOMYCIN Implant Magnifuse Bone Graft 1 X 10cm - [id number] Implanted:Qt y: 1 on 05/21/2023 by Kulwinder Almaraz MD at [facility] Bone N/A: Spine Lumbar [employer] SP[employer]AL [employer] [id number] 12/20/2024 [id number] / [id number] / Implant Magnifuse Bone Graft 1 X 5cm - [id number] Implanted:Qt y: 1 on 05/21/2023 by Kulwinder Almaraz MD at [facility] Bone N/A: Spine Lumbar [employer] - DIV [id number] 11/01/2024 [id number] / [id number] / Vertaplex Hv Bone Cement Implanted:Qt y: 1 on 05/21/2023 by Kulwinder Almaraz MD at [facility] Cement Implant N/A: Spine Lumbar [employer] DIV MEGAN ROLDAN [id number] 01/26/2025 [id number] / / [id number] Vertaplex Hv Bone Cement Implanted:Qt y: 1 on 05/21/2023 by Kulwinder Almaraz MD at [facility] Cement Implant N/A: Spine Lumbar [employer] MEGAN ROLDAN [id number] 06/26/2024 [id number] / / [id number] 5.5 X 500 Mm Kameron Implanted:Qt y: 1 on 05/21/2023 by Kulwinder Almaraz MD at [facility] Kameron N/A: Spine Lumbar [employer] [id number] / / Solera Set Screws Implanted:Qt y: 10 on 05/21/2023 by Kulwinder Almaraz MD at [facility] Screw N/A: Spine Lumbar [employer] [id number] / / 4.5 X 35 Mm Screw Implanted:Qt y: 1 on 05/21/2023 by Kulwinder Almaraz MD at [facility] Screw N/A: Spine Lumbar [employer] [id number] / / 4.5 X 40 Mm Screw Implanted:Qt y: 4 on 05/21/2023 by Kulwinder Almaraz MD at [facility] Screw N/A: Spine Lumbar [employer] [id number] / / 4.5 X 45 Mm Screws Implanted:Qt y: 2 on 05/21/2023 by Kulwinder Almaraz MD at [facility] Screw N/A: Spine Lumbar [employer] [id number] / / 5.5 X 40 Mm Screw Implanted:Qt y: 1 on 05/21/2023 by Kulwinder Almaraz MD at [facility] Screw N/A: Spine Lumbar [employer] [id number] / / 5.5 X 25 Mm Screw Implanted:Qt y: 2 on 05/21/2023 by Kulwinder Almaraz MD at [facility] Screw N/A: Spine Lumbar [employer] [id number] / / Kit Case 4.2mm Spineck - [id number] Implanted:Qt y: 2 on 05/21/2023 by Kulwinder Almaraz MD at [facility] O'ANJEL N/A: Spine Lumbar [employer] DIV MEGAN ROLDAN [id number] / / Procedures Procedure Name Priority Date/Time Associated Diagnosis Comments URINE BACTERIA CULTURE Routine 06/05/2024 1:26 PM CDT UTI symptoms Acute cystitis with hematuria URINALYSIS AUTO DIP Routine 06/05/2024 UTI symptoms Acute cystitis with hematuria BONE DENSITY/DEXA Routine 05/25/2024 3:1 2 PM SENIOR CORE JAVA DEVELOPER Asymptomatic menopausal state Age-related osteoporosis without current pathological fracture CT THOR SPINE WO CON Routine 05/17/2024 8:49 AM SENIOR CORE JAVA DEVELOPER Fusion of spine of thoracolumbar region CT LUMB SPINE WO CON Routine 05/17/2024 8:49 AM SENIOR CORE JAVA DEVELOPER Fusion of spine of thoracolumbar region COLONOSCOPY GENERIC (SCAN ORDER) 02/04/2017 from Last 3 Months or Most Recently Relevant to Health Maintenance Results * (ABNORMAL) URINE BACTERIA CULTURE (06/05/2024 1:26 PM CDT) SPEC DESCRIPTION URINE CLEAN CATCH 06/05/2024 5:08 PM CDT [facility] SPECIAL REQUESTS NO SPECIAL REQUEST 06/05/2024 5:08 PM CDT [facility] CULTURE RESULT >100,000 COL/ML ESCHERICHIA COLI (A) 06/07/2024 8:16 AM CDT [facility] URINE SPECIMEN OBTAINED BY CLEAN CATCH [...] MICROBIOLOGY - GENERAL ORDER MAYTE Final Result [facility] [address] [place] [address], [place] [phone] [facility] [address] [place] [address], [place] [phone] * (ABNORMAL) URINALYSIS AUTO DIP (06/05/2024) COLOR (U) YELLOW YELLOW MG-[address], [place] [facility](A) CLEAR MG-[address], [facility] GLUCOSE (U) NEGATIVE NEGATIVE MG/DL MG-[address], [facility] BILIRUBIN (U) NEGATIVE NEGATIVE MG-[address], [facility] KETONES MG/DL (U) NEGATIVE NEGATIVE MG/DL MG-[address], [facility] SPECIFIC GRAVITY (U) 1.015 1.001 - 1.035 MG-[address], [facility] BLOOD (U) SMALL (1+, Hemolyzed)(A ) NEGATIVE MG-[address], [facility] U PH 6.0 5.0 - 9.0 MG-[address], [facility] PROTEIN (U) NEGATIVE NEGATIVE mg/dL MG-[address], [facility] UROBILINOGEN 0.2 0.2 - 1.0 EU/dL = mg/dL MG-[address], [facility] NITRITES NEGATIVE NEGATIVE MG/DL MG-[address], [facility] LEUKOCYTES (U) 3+ (LARGE)(A) NEGATIVE MG-45665 [facility] URINE SPECIMEN OBTAINED BY CLEAN CATCH PROCEDURE / Unknown 06/05/2024 us Ayse CHURCH URINE ORDERABLES Final Resul t -[id number] [facility] [address] [place] [address], * BONE DENSITY/DEXA (05/25/2024 3:12 PM SENIOR CORE JAVA DEVELOPER) Anatomical Region Laterality Modality Bone Bone Density 05/26/2024 7:48 AM SENIOR CORE JAVA DEVELOPER Impressions 05/26/2024 7:50 AM SENIOR CORE JAVA DEVELOPER IMPRESSION: WHO Classification: Osteopenia RECOMMENDATIONS: All patients [...] 05/26/2024 7:48 AM Narrative 05/26/2024 7:50 AM SENIOR CORE JAVA DEVELOPER [facility] [address] [place] [address] EXAMINATION: BONE DENSITY/DEXA INDICATIONS: Asymptomatic menopausal state [...] Procedure Note Hever Amaro MD - 05/26/2024 [facility] [address] [place] [id number] EXAMINATION: BONE DENSITY/DEXA INDICATIONS: Asymptomatic menopausal state [...] THOR SPINE WO CON (05/17/2024 8:49 AM SENIOR CORE JAVA DEVELOPER) Anatomical Region Laterality Modality Spine Computed Tomogra phy 05/19/2024 7:53 AM SENIOR CORE JAVA DEVELOPER Impressions 05/19/2024 8:08 AM SENIOR CORE JAVA DEVELOPER IMPRESSION: THORACIC SPINE: 1. Status post posterior [...] 05/19/2024 7:53 AM Narrative 05/19/2024 8:08 AM SENIOR CORE JAVA DEVELOPER [address] [address] EXAMINATION:CT of the thoracic and lumbar spine [...] Procedure Note Alexis Alejandro MD - 05/19/2024 [place] [address] [place] [id number] EXAMINATION:CT of the thoracic and lumbar spine [...] There is a chronic compression fracture of U10atxs depression of superior endplate and 30% loss [...] There is a chronic compression fracture of I87pmga depression of superior endplate and 30% loss [...] MD, 05/19/2024 7:53 AM us Agnes Begum INTERNAL MEDICINE PHYSICIAN ASSISTANT CT Final Resu lt * CT LUMB SPINE WO CON (05/17/2024 8:49 AM SENIOR CORE JAVA DEVELOPER) Anatomical Region Laterality Modality Spine Computed Tomogra phy 05/19/2024 7:53 AM SENIOR CORE JAVA DEVELOPER Impressions 05/19/2024 8:08 AM SENIOR CORE JAVA DEVELOPER IMPRESSION: THORACIC SPINE: 1. Status post posterior [...] 05/19/2024 7:53 AM Narrative 05/19/2024 8:08 AM SENIOR CORE JAVA DEVELOPER [address] [address] EXAMINATION:CT of the thoracic and lumbar spine [...] Procedure Note Alexis Alejandro MD - 05/19/2024 [place] [id number] EXAMINATION:CT of the thoracic and lumbar spine [...] There is a chronic compression fracture of H57gqfj depression of superior endplate and 30% loss [...] There is a chronic compression fracture of Y22zolm depression of superior endplate and 30% loss [...] MD, 05/19/2024 7:53 AM us Agnes Begum INTERNAL MEDICINE PHYSICIAN ASSISTANT CT Final Resu lt * COLONOSCOPY GENERIC (SCAN ORDER) (02/04/2017) 02/04/2017 us [facility] Scanned SCANNING Final Resu lt from Last 3 Months or Most Recently Relevant to Health Maintenance Insurance Location [employer] MEDICARE [facility] Location [employer] MEDICAL REIMBURSEMENTS OF [facility] Advance Directives * Full Code (Latest Code Status on File) Date Activated Date Inactivated Comments 05/21/2023 1:09 PM 05/24/2023 8:38 PM * Full Code Date Activated Date Inactivated Comments 05/20/2023 6:45 PM 05/21/2023 1:09 PM * Full Code Date Activated Date Inactivated Comments 05/20/2023 6:03 PM 05/20/2023 6:45 PM Care Teams Dormitory Supervisor Relationship Specialty Start [place] [address] [place] [address] PCP - General INTERNAL MEDICINE 02/18/24 Juan R Sosa MD [place] Professor Of Vegetable Science CARDIOVASCULAR DISEASE 10/03/15
--- OUTSIDE RECORDS SUMMARY | 2024-07-18 13:16 | XMS_ITS | Continuity of Care Document ---
Author Organization [facility] Address [address] [address] [place] [address] [address] Phone Care Team Providers Care Reliability Technicians Name Role Phone Bora Rebolledo MD Unavailable [...] Providers Copied on Encounter [facility], [address], [place], [address], [place] tel:[phone] [facility] No Information 0 Kesha Sahni. [address], [place], [place], [address]. tel:[phone] OFFICE/OUTPA TIENT VISIT EST [facility], [address], [place], [address], [place] tel:[phone] [facility] Status post total left knee replacement 0 Boxdorfer Candy. [address], [place], [place], [address]. tel:[phone] OFFICE/OUTPA TIENT VISIT EST [facility], [address], [place], [address], [place] tel:[phone] [facility] Right hip painBody mass index (BMI) 32.0-32.9, adultTrochanter ic bursitis of right hip 9 Boxdorfer Candy. [address], [place], [place], [address]. tel:[phone] OFFICE/OUTPA TIENT VISIT EST [facility], [address], [place], [address], [place] tel:[phone] [facility] Status post total left knee replacement 9 Boxdorfer Candy. [address], [place], [place], [address]. tel:[phone] [facility], [address] [place] [address], [place], [address], [place] tel:[phone] [facility] Status post total left knee replacement 9 Kesha Sahni. [address], [place], [place], [address]. tel:[phone] [facility], [address], [place], [address], [place] tel:[phone] [facility] Status post total left knee replacementPrim jurgen osteoarthritis of left knee 9 Kesha Sahni. [address], [place], [place], [address]. tel:[phone] [facility], [address] [address], [place], [address], [place] tel:[phone] [facility] Status post total left knee replacement 9 Kesha Sahni. [address], [place], [place], [address]. tel:[phone] [facility], [address] [address], [place], [address], [place] tel:[phone] [facility] Status post total left knee replacementPrim jurgen osteoarthritis of left kneeBody mass index (BMI) 32.0-32.9, adult 9 Shobha Sahni. [address] [facility], [place], [place], [address]. tel:[phone] [facility], [address] [address], [place], [address], [place] tel:[phone] [facility] Status post total left knee replacement 9 Wilmandamilynn Gupta. [address], [place], [place], [address]. tel:[phone] [facility], [address] [address], [place], [address], [place] tel:[phone] [facility] Osteoarthritis of left knee, unspecified osteoarthritis type 8 Kesha Sahni. [address], [place], [place], [address]. tel:[phone] OFFICE/OUTPA TIENT VISIT EST [facility], [address] [facility] [address], [place], [address], [place] tel:[phone] [facility] Osteoarthritis of left knee, unspecified osteoarthritis type 8 Boxdorfer Candy. [address], [place], [place], [address]. tel:[phone] OFFICE/OUTPA TIENT VISIT EST [facility], [address] [facility] [address], [place], [address], [place] tel:[phone] [facility] Left knee pain, unspecified chronicityEssen tial (primary) hypertensionOst eoarthritis of left knee, unspecified osteoarthritis type 8 Boxdorfer Candy. [address], [place], [place], [address]. tel:[phone] OFFICE/OUTPA TIENT VISIT NEW [facility], [address] [facility] [address], [place], [address], [place] tel:[phone] [facility] Left knee pain, unspecified chronicityBody mass index (BMI) 34.0-34.9, adultOsteoarthr itis of left knee, unspecified osteoarthritis type 7 Kesha Sahni. [address], [place], [place], [address]. tel:[phone] OFFICE/OUTPA TIENT VISIT EST [facility], [address] [facility] [address], [place], [address], [place] tel:[phone] [facility] Enthesopathy of hip region 3 Kesha Sahni. [address], [place], [place], [address]. tel:[phone] Referring Provider: Efrain Argueta [address] [place], [address]. tel:[phone] OFFICE/OUTPA TIENT VISIT EST [facility], [address], [place], [address], [place] tel:[phone] [facility] bilateral hip pain (chief complaint) Enthesopathy of hip regionHypertens ion, Unspecified 0[address] Kesha Sahni. [address], [place], [place], [address]. tel:[phone] Referring Provider: Efrain Argueta, [address] [place] [facility] [place], [address]. tel:[phone] Family History Family Member Type Diagnosis Age [...] democrat ID Authoriza tion(s) Medicare E2 OT [id number] For [place] OT [id number] Social History Type Description Quantity Date Captured [...] Information Instructions Date Instruction Additional Infor mation Apply moist heat or cold 20 min per hour. Related to Trochanteric bursitis of right hip Home exercise program. Related t o Trochanteric bursitis of right hip Giving encouragement to exercise Related to Body mass index (BMI) 32.0-32.9, adult Home exercise program. Related t o Status post total left knee replacement Discussed treatment options Rela darwin to Status post total left knee replacement Giving encouragement to exercise Related to Body mass index (BMI) 32.0-32.9, adult Weight loss reduces stress on joints. Related [...] osteoarthritis type ROM as tolerated Protective activity Fall risk home exerc ise program handout provided Home safety checklis t for fall hazards provided Assessments Type Assessment Date No Information Patient Care Teams Name Effective Dates (start - stop) Status Members No Information
--- OUTSIDE RECORDS SUMMARY | 2024-07-18 13:17 | XMS_ITS | Clinical Summary ---
Author Organization [facility] Address [address] [place] [address] Care Team Providers Care Supervisor Plate Pasting Name Role Phone Rufino Randolph MD Unavailable Marilee Carvalho MD Primary Care Provider [phone] Allergies Active Allergy Reactions Criticality Noted Date [...] EC tablet 3 Active cholecalciferol (VITAMIN D-3) 87289 unit capsule Take 1 capsule (10,000 Units [...] (05/13/2018): Added automatically from request for surgery [id number] Primary osteoarthritis of left knee 04/26/2018 Preop cardiovascular exam 04/15/2018 Essential hypertension 04/15/2018 Hyperlipidemia LDL goal <100 04/15/2018 Hypothyroidism 04/15/2018 Coronary artery disease invo lving [place] coronary artery of [place] heart without angina pectoris 04/15/2018 Resolved Problems [...] on file Legal Sex Female 2:21 AM AEROSPACE ENGINEER Gender Identity Not on file Sexual Orientation Not on file Obstetrics History Last Filed Vital Signs Vital Sign Reading Time Taken Comments Blood Pressure 138/88 02/21/2024 11:12 AM AEROSPACE ENGINEER Pulse 72 02/21/2024 9:42 AM AEROSPACE ENGINEER Temperature - - Respiratory Rate - - Oxygen Saturation 99% 02/21/2024 9:42 AM AEROSPACE ENGINEER Inhaled Oxygen Concentration - - Weight 76.7 kg (169 lb) 02/21/2024 9:42 AM AEROSPACE ENGINEER Height 154.9 cm (5' 1 ) 02/21/2024 9:42 AM AEROSPACE ENGINEER Body Mass Index 31.93 02/21/2024 9:42 AM AEROSPACE ENGINEER Plan of Treatment Health Maintenance Due [...] FOR LIFE MEDICARE FOR LIFE Care Teams Supervisor Plate Pasting Relationship Specialty Start [place] [address] [place] [address] PCP - General Internal Medicine 06/19/24 Rufino Randolph MD Referring Physician Internal Medicine 12/13/17
--- OUTSIDE RECORDS SUMMARY | 2024-07-18 13:17 | XMS_ITS | Clinical Summary ---
Author Organization [facility] Address [address] [place] [address] Phone Care Team Providers Care Tobacco Sizer Name Role Phone [facility], External Provider Primary Care Provider Un available Allergies Active Allergy Reactions Criticality Noted Date Comments Amoxicillin Rash Medium 04/14/2018 Cephalexin Rash 04/14/2018 Sulfa (Sulfonamide Antibiotics) Rash Medium 03/29 Medications sertraline (ZOLOFT) 100 mg tablet Take 100 mg by mouth daily with breakfast. 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 Active levothyroxine 88 mcg tablet Take 88 mcg by mouth daily producer director Takes opposite days of 100mcg . Active atorvastatin (LIPITOR) 40 mg tablet Take 40 mg by mouth daily at bedtime. Active cetirizine (ZyrTEC) 10 mg tablet Take 10 mg by mouth daily at bedtime. Active fluticasone (FLONASE) 50 mcg/spray [place], Suspension 2 Sprays by See Admin Instructions route see administration instructions Takes opposite days of fortical . Active calcitonin, [place], (FORTICAL) 200 unit/actuation [place], Non-Aerosol Administer 1 [place] in each nostril see administration instructions Takes [...] times daily. 60 Tablet 9 10:35 AM CILNICAL SCIENTIST 04/27/19 19 Active rivaroxaban (XARELTO) 10 mg TabletIndications: Primary osteoarthritis of left knee Take 1 Tablet (10 mg) by mouth daily. 21 Tablet 9 10:35 AM CILNICAL SCIENTIST 04/27/19 19 Active HYDROcodone-acetam inophen (NORCO) 5-325 mg tabletIndications: Primary osteoarthritis of left knee Take 1 Tablet by mouth every 4 hours as needed for moderate pain. Max Daily Amount: 6 Tablets 42 Tablet 9 10:35 AM CILNICAL SCIENTIST 04/27/19 19 Active Active Problems Problem Noted [...] Comments Blood Pressure 137/87 04/28/2018 8:05 AM CILNICAL SCIENTIST Pulse 63 04/28/2018 8:05 AM CILNICAL SCIENTIST Temperature 36.7 C (98.1 F) 04/28/2018 4:05 AM CILNICAL SCIENTIST Respiratory Rate 16 04/28/2018 8:05 AM CILNICAL SCIENTIST Oxygen Saturation 99% 04/28/2018 8:05 AM CILNICAL SCIENTIST Inhaled Oxygen Concentration - - Weight 80.7 kg (178 lb) 04/26/2018 7:52 AM CILNICAL SCIENTIST Height 156.2 cm (5' 1.5 ) 04/14/2018 9:51 AM CILNICAL SCIENTIST Body Mass Index 33.09 04/14/2018 9:51 AM CILNICAL SCIENTIST Plan of Treatment Health Maintenance Due Date [...] series) 2024 Medical Devices Implanted Type Area Special Education Secretary Device Identifier Shelf Expiration Date Model / Serial / Lot Cement Depuy1 40grams 3312-040 - Snone Implanted:Qty : 1 on 04/26/2018 by Bora Rebolledo MD at [facility] Cement Left: Knee [employer] 07/26/2020 3312-040 / NONE / [id number] Description: [id number] Comp Tib Attn Fb Cmnt Sz3 1506-70-003 - Snone Implanted:Qty : 1 on 04/26/2018 by Bora Rebolledo MD at [facility] Knee Left: Knee [employer] 01/27/2028 1506-70-003 / NONE / [id number] Description: Comp Fem Attn Cr Cmnt Sz4 1504-00-104 - Snone Implanted:Qty : 1 on 04/26/2018 by Bora Rebolledo MD at [facility] Knee Left: Knee [employer] 02/26/2028 [id number] / NONE / [id number] Description: Patella Attune Dome 32mm 1518-20-032 - Snone Implanted:Qty : 1 on 04/26/2018 by Bora Rebolledo MD at [facility] Knee Left: Knee [employer] 02/25/2023 [id number] / NONE / [id number] Description: Ins Attn Fb Cr Sz4 5mm 1516-20-405 - Snone Implanted:Qty : 1 on 04/26/2018 by Bora Rebolledo MD at [facility] Knee Left: Knee [employer] 09/25/2022 [id number] / NONE / [id number] Description: Knee Insurance MEDICARE PART A AND B FOR LIFE [employer] Directives For more information, please contact: [phone] * Full Code (Latest Code Status on File) Date Activated Date Inactivated Comments 04/26/2018 4:26 PM 04/28/2018 2:11 PM Care Teams Tobacco Sizer Relationship Specialty Start Date End Date [facility], External Provider [address] [place] [address] PCP - General 04/14/18
--- OUTSIDE RECORDS SUMMARY | 2024-07-18 13:17 | XMS_ITS | Referral Summary ---
Author Organization [facility] Address [address] [place] [id number] Care Team Providers Care Nozzle Cement Sprayer Helper Name Role Phone Rufino Randolph MD Unavailable Marilee Carvalho MD Primary Care Provider [phone] Allergies Active Allergy Reactions Criticality Noted Date [...] EC tablet 3 Active cholecalciferol (VITAMIN D-3) 82795 unit capsule Take 1 capsule (10,000 Units [...] (05/13/2018): Added automatically from request for surgery [id number] Primary osteoarthritis of left knee 04/26/2018 Preop cardiovascular exam 04/15/2018 Essential hypertension 04/15/2018 Hyperlipidemia LDL goal <100 04/15/2018 Hypothyroidism 04/15/2018 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 04/15/2018 Resolved Problems [...] on file Legal Sex Female 2:21 AM [employer] Gender Identity Not on file Sexual Orientation Not on file Last Filed Vital Signs Vital Sign Reading Time Taken Comments Blood Pressure 138/88 02/21/2024 11:12 AM [employer]USER [employer] Pulse 72 02/21/2024 9:42 AM [employer]USER [employer]CULAR Temperature - - Respiratory Rate - - Oxygen Saturation 99% 02/21/2024 9:42 AM [employer] FUSER CIRCULAR Inhaled Oxygen Concentration - - Weight 76.7 kg (169 lb) 02/21/2024 9:42 AM [employer] FUSER CIRCULAR Height 154.9 cm (5' 1 ) 02/21/2024 9:42 AM [employer]USER CIRCULAR Body Mass Index 31.93 02/21/2024 9:42 AM [employer]USER [employer]ULAR Plan of Treatment Not on file Insurance MEDICARE [employer] MEDICARE FOR LIFE MEDICARE FOR LIFE MEDICARE [facility] FOR LIFE Care Teams Nozzle Cement Sprayer Helper Relationship Specialty Start [place] [id number] [address] PCP - General Internal Medicine 06/19/24 Rufino Randolph MD Referring Physician Internal Medicine 12/13/17
--- OUTSIDE RECORDS SUMMARY | 2024-07-18 13:17 | XMS_ITS | Continuity of Care Document ---
Author Name [facility] Organization [facility] Care Team Providers Care Sand [place]linger Operator Name Role Phone [facility] Unavailable Unavailable Problems Combined list of problems from Department of Defense and Veterans Affairs facilities. It does not include entries that were removed or entered in error. Problem Status Onset Date Problem Type Date of Resolution Comments Source Encounter for issue of repeat prescription Active 09/21/19 24 Diagnosis 0055C-375 th [facility] damian INGROWING TOENAIL Inactive Condition DoD ALLERGIC RHINITIS Active Condition DoD SHOULDER IMPINGEMENT LEFT Active Condition DoD OSTEOARTHRITIS KNEE Active Condition Do D Administrative Evaluation Services Inactive Condition DoD EOSINOPHILIA Active Condition DoD diarrhea Active Condition DoD Outpatient Physician Consultation Active Condition DoD joint pain, localized in the hip Active Condition DoD PALPITATIONS Active Condition DoD lightheadedness Inactive Condition DoD Aftercare Active Condition DoD COLONIC DIVERTICULOSIS Active Condition DoD HEMORRHOIDS INTERNAL Active Condition DoD visit for: screening malignant neoplasm colon Inactive Condition DoD BRONCHITIS Inactive Condition DoD OSTEOPOROSIS Active Condition DoD COMMON COLD Inactive Condition DoD FATIGUE Inactive Condition DoD visit for: preoperative exam Inactive Condition DoD X-Ray Inactive Condition DoD visit for: refer patient without exam or treatment Inactive Condition DoD OSTEOARTHRITIS Active Condition DoD HYPERTENSION (SYSTEMIC) Active Condition DoD numbness (hypesthesia) Active Condition DoD FEMALE DYSPAREUNIA DUE TO A PHYSICAL CONDITION Active Condition DoD visit for: screening exam cardiovascular disorders Active Condition DoD palpitations Active Condition DoD visit for: issue repeat prescription for medication Inactive Condition DoD ACUTE BRONCHITIS Inactive Condition DoD RETINOPATHY HYPERTENSIVE Active Condition DoD ESSENTIAL HYPERTENSION Active Condition DoD CLOSED FRACTURE RIGHT 5TH TOE PROXIMAL PHALANX Active Condition DoD ACQUIRED DEFORMITY OF TOE Active Condition DoD visit for: screening exam malignant neoplasm breast Active Condition DoD ROUTINE PELVIC EXAM Inactive Condition D oD visit for: screening exam hypertension Active Condition DoD Laboratory Studies Inactive Condition Do D CYSTITIS Inactive Condition Pt to foll ow-up if still having sx in 5-7 days DoD blurry vision Active Condition DoD visit for: laboratory Active Condition DoD SKIN NEOPLASM SCALP Active Condition Do D Blood Pressure Isolated Elevated Active Condition DoD INGROWING NAIL Active Condition DoD INTERNAL DERANGEMENT OF KNEE MEDIAL MENISCUS Active Condition She frederick marquis iwpurnima a paper from her orthopaedist Dr Rebolledo at [facility] and they propose an arthroscopy with possible medial meniscectomy (partial). I agree with proposed procedure and will make arrangements [facility] for this. DoD joint pain, localized in the knee Active Condition DoD HYPOTHYROIDISM Active Condition discu ssed labs, T4 free in mid range, TSH a little low, recommend recheck TSH in 6 months, may need to reduce dose DoD Mammogram Screening Active Condition Screening mammogram ordered as below. [facility] visit for: issue repeat prescription Inactive Condition DoD ESOPHAGEAL REFLUX Active Condition DoD HYPERLIPIDEMIA Active Condition Zwolle lent control on current regimen. Continue simvistatin. Rescreen in 12 months. DoD OSTEOPENIA Active Condition Previousl y osteoporotic. Will continue Fosamax and Miacalcin, recheck bone scan. DoD DEPRESSION Active Condition Good resu lts on sertraline, no SI/HI. Continue, f/u 6-12 months. DoD PARONYCHIA RIGHT FIRST TOE Inactive Condition Levofloxacin 500mg daily x 7 days. f/u prn. Continue local care. [facility] visit for: administrative purpose Inactive Condition DoD SACROILIITIS Active Condition [facility] Preventive Medicine Estab Patient Checkup Adult 40-64 Inactive Condition DoD Acquired deformity of toe Active Condition 0055C-375 th [facility] Allergic rhinitis Active Condition 005 C-375 th [facility] damian Anxiety Active Condition 0055C-375 th [facility] Coronary artery disease Active Condition 0055C-375 th [facility] Depressive disorder1 Active Condition Outside Source Comment: Good results on sertraline, no SI/HI. Continue, f/u 6-12 months. 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 Continue simvistatin. Rescreen in 12 months. 0055C-375 th [facility]ian Hypothyroidism3 Active Condition Outs francine Source Comment: discussed labs, T4 free in mid range, TSH a little low, recommend recheck TSH in 6 months, may need to reduce dose 0055C-375 th [facility] dam[facility] Ingrowing nail Active Condition 0055C-3 75 th [facility] Osteoarthritis Active Condition 0055C-3 75 th [facility] Osteoporosis Active Condition 0055C-375 th [facility] dam[facility] Medications Combined list of outpatient medications from [...] 90.0 Ambulat ory Pharmac y atorvastati n (U/D) 80 MG ORAL TAB Take with food/mil k.Take or use exactly as directed .Obtain advice for OTCs.Do not take if .Avoid grapefru it and grapefru it juice. 03/30/2024 [id number] 4 [address] [place] [address] Dawson GRANADOS ([facility] atorvastati n 80 mg tablet See Instruct ions, # 90 EA, 2 total refill(s ), Acute Complet ed 03/31/2023 3 2023 90.0 Ambulat ory Pharmac y atorvastati n 80 mg tablet See Instruct ions, Oral, # 90 EA, 3 total refill(s ), Hard Stop Oral (given by mouth) Discont inued 07/11/2024 4 2024 90.0 Ambulat ory Pharmac y atorvastati n 80 mg tablet 80 mg, Oral, # 90 EA, 1 total refill(s ), Soft Stop Oral (given by mouth) Ordered 5 2024 90.0 Ambulat ory Pharmac y CETIRIZINE (U/D) 10 MG ORAL TAB May cause drowsine ss.Obtai n advice for OTCs. 03/30/2024 [id number] 4 [address] [place] [address] Dawson GRANADOS ([facility]) cetirizine 10 mg tablet See Instruct ions, Oral, # 90 EA, 3 total refill(s ), Hard Stop Oral (given by mouth) Ordered 03/16/2025 5 2024 90.0 Ambulat ory Pharmac y cetirizine 10 mg tablet See Instruct ions, # 90 EA, 2 total refill(s ), Acute Complet ed 03/31/2023 3 2023 90.0 Ambulat ory Pharmac y CYCLOBENZAP RINE HCL (cyclobenza lidia HCl), 10 MG, TABLET, ORAL, [facility], 1000 ea. BOTTLE Active [id number] 4 2023 21 Pharmac y Data Transac tion Service Facilit y diclofenac 1% topical gel USE DOSING CARD TO APPLY 2 TO 4 GRAMS TO AFFECTED AREAS FOUR TIMES A DAY DIRECTED , # 100 g, 3 total refill(s ), Acute Complet ed 03/31/2023 3 2023 100.0 Ambulat ory Pharmac y docusate sodium 100 mg oral capsule 1 cap(s), Oral, BID, PRN constipa tion, # 60 cap(s), 0 total refill(s ), Maintena are, Pharmacy : [facility] Oral (given by mouth) Ordered 2023 60.0 0055C-3 [facility] docusate sodium 100 mg oral capsule 1 cap(s), Oral, BID, PRN constipa tion, # 20 cap(s), 0 total refill(s ), Maintena are, Pharmacy : [id number] Oral (given by mouth) Ordered 2023 20.0 0055C-3 [facility] FLONASE-OTC (BRAND) 50 MCG DOMINIQUE SPSN [9.9] Take or use exactly as directed .For the nose. 03/30/2024 [id number] 4 2023 48 [facility] Dawson GRANADOS ([facility]) fluticasone 50 mcg/inh nasal spray 2 spray(s) , Nostril- Both, Daily, # 3 EA, 3 total refill(s ), Acute, Pharmacy : [facility] Nostri l-Both (into the nose) Discont inued 03/24/2024 4 2023 3.0 0055C-3 [facility] fluticasone 50 mcg/inh nasal spray [16g] See [...] 4 2024 16.0 Ambulat ory Pharmac y HYDROCODONE -ACETAMINOP HEN (HYDROCODON E/ACETAMINO PHEN), 5MG-325MG, TABLET, ORAL, MALLINCKROD T PH, 500 ea. BOTTLE Active [id number] 4 2023 20 Pharmac y Data Transac tion Service Facilit y HYDROCODONE -ACETAMINOP HEN (HYDROCODON E/ACETAMINO PHEN), 5MG-325MG, TABLET, ORAL, MALLINCKROD T PH, 500 ea. BOTTLE Active [id number] 4 2023 50 Pharmac y Data Transac tion Service Facilit y levothyroxi ne (Synthroid) 88 mcg tablet [...] patch(es ), 3 total refill(s ), Maintena are, Pharmacy : [facility] Topica l (on the skin) Ordered 4 2023 30.0 0055C[facility]3 [facility] Lipitor 80 mg oral tablet 1 tab(s), Oral, Daily, for choleste rol, # 90 tab(s), 3 total refill(s ), Maintena nce Oral (given by mouth) Discont inued 03/31/20232023 90.0 0055C-3 [facility] Dawson Lipitor 80 mg oral tablet 1 tab(s), Oral, Daily, for choleste rol, # 90 tab(s), 3 total refill(s ), Maintena are, Pharmacy : [facility] Oral (given by mouth) Discont inued 03/24/2024 4 2023 90.0 0055C-[address] [place], [place] [address]Jose Manuel Osman MiraLax oral powder for reconstitut ion See Instruct ions, Dissolve and drink 1 capful (17g) of powder in 4 to 8 ounces of liquid once daily, # 510 g, 0 total refill(s ), Maintena nce Ordered 2023 510.0 0055C-3 [facility] NALOXONE HCL (naloxone HCl), 4 MG, SPRAY, NASAL, TEVA RUST, 2 ea. BLIST PACK Active [id number] 4 2023 2 Pharmac y Data Transac tion Service Facilit y [place] 5 mg-325 mg oral tablet 1 tab(s), Oral, every 6 hr, PRN pain, 0 total refill(s ), Maintena nce Oral (given by mouth) Ordered 2023 0055C-[address] [place] [address] orphenadrin e ER 100 mg tablet See [...] 5 2024 90.0 Ambulat ory Pharmac y PANTOPRAZOL E SODIUM (PANTOPRAZO LE SODIUM), 40 MG, TABLET DR, ORAL, MYLAN, 1000 ea. BOTTLE Active [id number] 4 2023 180 Pharmac y Data Transac tion Service Facilit y PANTOPRAZOL E SODIUM (PANTOPRAZO LE SODIUM), 40 MG, TABLET DR, ORAL, MYLAN, 90 ea. BOTTLE Active [id number] 4 2023 180 Pharmac y Data Transac tion Service Facilit y PREGABALIN (pregabalin ), 75 MG, CAPSULE, ORAL, AMNEAL PHARMACE, 90 ea. BOTTLE Active [id number] 4 2023 14 Pharmac y Data Transac tion Service Facilit y Protonix 40 mg oral delayed release tablet 1 tab(s), Oral, BID, # 180 tab(s), 3 total refill(s ), Maintena nce, Pharmacy : [facility] Oral (given by mouth) Cancele d 03/24/20242023 180.0 0055C-3 [facility] Dawson Protonix 40 mg oral delayed release tablet 1 tab(s), Oral, BID, # 180 tab(s), 3 total refill(s ), Maintena nce, Pharmacy : [facility] #[id number] Oral (given by mouth) Discont inued 09/21/20232023 180.0 0055C-3 [facility] Dawson Protonix 40 mg oral delayed release tablet 1 tab(s), Oral, Daily, # 90 tab(s), 3 total refill(s ), Maintena nce, Pharmacy : [facility] Oral (given by mouth) Discont inued 05/31/2023 2023 90.0 0055C-3 [facility] Protonix 40 mg oral delayed release tablet 1 tab(s), Oral, Daily, # 90 tab(s), 3 total refill(s ), Maintena nce Oral (given by mouth) Discont inued 03/31/20232023 90.0 0055C-3 [facility] Dawson senna (sennosides ) 8.6 mg oral tablet 2 tab(s), Oral, every day at bedtime, PRN constipa tion, # 20 tab(s), 0 total refill(s ), Maintena nce Oral (given by mouth) Ordered 2023 20.0 0055C-[address] [place], [place] [address]MATEO Osman sertraline (U/D) 100 MG ORAL TAB May cause drowsine ss.Take or use exactly as directed .Obtain advice for OTCs. 03/30/2024 [id number] 2023 90 [facility] GRANADOS ([facility] sertraline 100 mg oral tablet 1 tab(s), Oral, Daily, # 90 tab(s), 0 total refill(s ), Maintena nce Oral (given by mouth) Discont inued 03/31/20232023 90.0 0055C-3 [facility] sertraline 100 mg oral tablet 1 tab(s), Oral, Daily, # 90 tab(s), 3 total refill(s ), Jazmin arqi, Pharmacy : [facility] Oral (given by mouth) Discont inued 04/24/2024 4 2024 90.0 0055C-3 [facility] Dawson sertraline 100 mg tablet 100 mg, [...] total refill(s ), 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 11/09/2023 [id number] 4 2023 30 [facility] GRANADOS ([facility] ZyrTEC 10 mg oral tablet 1 tab(s), Oral, Daily, PRN allergy symptoms , # 90 tab(s), 3 total refill(s ), Jazmin are, Pharmacy : [facility] Oral (given by mouth) Discont inued 03/24/2024 4 2023 90.0 0055C-3 [facility] Dawson ZyrTEC 10 mg oral tablet 1 tab(s), Oral, Daily, PRN allergy symptoms , # 90 tab(s), 3 total refill(s ), Maintena nce Oral (given by mouth) Discont inued 03/31/20232023 90.0 0055C-3 [facility] Dawson Allergies, Adverse Reactions, Alerts Combined list of allergies from Department of Defense and Veterans Affairs facilities. It does not include entries that were removed or entered in error. Substance Category Reaction Severity Reaction type Status Date Reported Comments Source AMOXICILLIN Drug allergy (disorder) Unknown active 0 [facility] ([facility]) AMOXICILLIN TRIHYDRATE Drug allergy (disorder) Unknown active [address] [place] [address] amoxicillin Propensity to adverse reactions to drug Unknown Active Reaction( s): Unknown<b r/>Reacti on(s): Unknown; Note: PER 3066 Unknown Organizati on cephalexin Propensity to adverse reactions to drug Unknown Active Reaction( s): Unknown; Note: PER 3066 Unknown Organizati on codeine Propensity to adverse reactions to drug Unknown Active 3 Unknown Organizati on CODEINE {Cla } Drug allergy (disorder) Unknown active 3 [facility]) KEFLEX Drug allergy (disorder) Unknown active 0 [facility] sulfa drugs Propensity to adverse reactions to drug Unknown Active Reaction( s): Unknown; Note: PER 3066 Unknown Organizati on SULFA-DRUGS Drug allergy (disorder) Unknown active [address] [place] [address]) Immunizations Combined list of available immunizations from the Department of Defense and Veterans Affairs facilities. Immunization Series Date Given Administered By Site Reaction Lot Number CVX Code Drug Maintenance Analyst Status Comments Source RSV vaccine preF3, recombinant 2023 [id number] complet ed RSV vaccine preF3, recombina nt 03/31/23 Recorded 0055C[facility]3 [facility] tetanus-dipht h toxoids (Td) adult/adol 2022 zzLef t Arm [id number] sanofi pasteur complet ed tetanus-d iphth toxoids (Td) adult/ado l 04/15/22 Given Ambulat ory Pharmac y tetanus and diphtheria toxoids, adsorbed, preservative free, for adult use (2 Lf of tetanus toxoid and 2 Lf of diphtheria toxoid) 1 2022 Unknown, Provider [id number] Sanofi Pasteur ([facility]) complet ed tetanus and diphtheri a toxoids, adsorbed, preservat gilda free, for adult use (2 Lf of tetanus toxoid and 2 Lf of diphtheri a toxoid) DoD COVID Vaccine Moderna 2020 TRANSCR [id number] 207 complet ed COVID Vaccine Moderna 02/17/21 Given Ambulat ory Pharmac y SARS-COV-2 (COVID-19) vaccine, mRNA, spike protein, LNP, preservative free, 100 mcg or 50 mcg dose 1 2020 Unknown, Provider 207 Moderna [employer] (MOD) complet ed SARS-COV- 2 (COVID-19 ) vaccine, mRNA, spike protein, LNP, preservat gilda free, 100 mcg or 50 mcg dose DoD influenza, injectable, quadrivalent- pf 2020 zzLef t Arm [id number] 150 GlaxoSmithKli ne complet ed influenza , injectabl e, quadrival ent-pf 01/16/21 Given Ambulat ory Pharmac y Influenza, injectable, quadrivalent, preservative free 1 2020 Unknown, Provider [id number] 150 [facility] ([facility]) complet ed Influenza , injectabl e, quadrival ent, preservat gilda free DoD zoster vaccine, inactivated 2020 zzLef t Arm [id number] 187 GlaxoSmithKli ne complet ed zoster vaccine, inactivat ed 06/26/20 Given Ambulat ory Pharmac y zoster vaccine recombinant 1 2020 Unknown, Provider [id number] 187 [facility] ([facility]) complet ed zoster vaccine recombina nt DoD COVID Vaccine Moderna 2020 [id number] complet ed COVID Vaccine Moderna 05/29/20 Given Ambulat ory Pharmac y SARS-COV-2 (COVID-19) vaccine, mRNA, spike protein, LNP, preservative free, 100 mcg or 50 mcg dose 2 2020 Unknown, Provider [id number] 207 Moderna [employer] (MOD) complet ed SARS-COV- 2 (COVID-19 ) vaccine, mRNA, spike protein, LNP, preservat gilda free, 100 mcg or 50 mcg dose DoD COVID Vaccine Moderna 2020 [id number] complet ed COVID Vaccine Moderna 05/01/20 Given Ambulat ory Pharmac y SARS-COV-2 (COVID-19) vaccine, mRNA, spike protein, LNP, preservative free, 100 mcg or 50 mcg dose 1 2020 Unknown, Provider [id number] 207 Moderna [employer] (MOD) complet ed SARS-COV- 2 (COVID-19 ) vaccine, mRNA, spike protein, LNP, preservat gilda free, 100 mcg or 50 mcg dose DoD zoster vaccine, inactivated 2019 zzL t Arm [id number] 187 GlaxoSmithKli ne complet ed zoster vaccine, inactivat ed 03/15/20 Given Ambulat ory Pharmac y zoster vaccine recombinant 1 2019 Unknown, Provider [id number] 187 [facility] ([facility]) complet ed zoster vaccine recombina nt DoD influenza, high-dose seasonal, quad, pf 2019 TRANSCR IBED 197 complet ed influenza , high-dose seasonal, quad, pf 01/09/20 Given Ambulat ory Pharmac y influenza, high-dose seasonal, quadrivalent, .7mL dose, preservative free 2019 Unknown, Provider 197 Transcribed (TRS) complet ed influenza , high-dose seasonal, quadrival ent, .7mL dose, preservat gilda free DoD influenza, injectable, quadrivalent- pf 2018 zzLef t Arm [id number] 150 [employer] complet ed influenza , injectabl e, quadrival ent-pf 03/16/19 Given Ambulat ory Pharmac y Influenza, injectable, quadrivalent, preservative free 1 2018 Unknown, Provider [id number] 150 [employer] (SEQ) complet ed Influenza , injectabl e, quadrival ent, preservat gilda free DoD influenza, injectable, quadrivalent- pf 2017 zzLef t Arm [id number] 150 GlaxoSmithKli ne complet ed influenza , injectabl e, quadrival ent-pf 03/04/18 Given Ambulat ory Pharmac y Influenza, injectable, quadrivalent, preservative free 1 2017 Unknown, Provider [id number] 150 [facility] ed Influenza , injectabl e, quadrival ent, preservat gilda free DoD influenza, injectable, quadrivalent- pf 2016 zzLef t Arm [id number] 150 GlaxoSmithKli ne complet ed influenza , injectabl e, quadrival ent-pf 01/15/17 Given Ambulat ory Pharmac y Influenza, injectable, quadrivalent, preservative free 1 2016 Unknown, Provider [id number] 150 [employer] (SKB) complet ed Influenza , injectabl e, quadrival ent, preservat gilda free DoD influenza, seasonal, injectable 2016 zzLef t Arm [id number] 141 [employer] complet ed influenza , seasonal, injectabl e 04/03/16 Given Ambulat ory Pharmac y Influenza, seasonal, injectable 1 2016 Unknown, Provider [id number] 141 (IDB) complet ed Influenza , seasonal, injectabl e DoD influenza, injectable, quadrivalent- pf 2015 zzLef t Arm [id number] 150 GlaxoSmithKli ne complet ed influenza , injectabl e, quadrival ent-pf 04/10/15 Given Ambulat ory Pharmac y Influenza, injectable, quadrivalent, preservative free 1 2015 Unknown, Provider [id number] 150 Anibaline ([facility]) complet ed Influenza , injectabl e, quadrival ent, preservat gilda free DoD pneumococcal polysaccharid e, 23 valent 2014 zzLef t Arm [id number] 33 Merck & Company Inc complet ed pneumococ kiana polysacch aride, 23 valent 10/19/14 Given Ambulat ory Pharmac y pneumococcal polysaccharid e vaccine, 23 valent 1 2014 Unknown, Provider [id number] Merck (MSD) complet ed pneumococ kiana polysacch aride vaccine, 23 valent DoD influenza, injectable, quadrivalent 2014 zzLef t Arm [id number] [employer] complet ed influenza , injectabl e, quadrival ent 04/19/14 Given Ambulat ory Pharmac y pneumococcal 13-valent conjugate (PCV13) 2014 zzLef t Arm [id number] [employer] complet ed pneumococ kiana 13-valent conjugate (PCV13) 04/19/14 Given Ambulat ory Pharmac y pneumococcal conjugate vaccine, 13 valent 1 2014 Unknown, Provider [id number] Danish (ZACK) complet ed pneumococ kiana conjugate vaccine, 13 valent DoD influenza, injectable, quadrivalent, contains preservative 1 2014 Unknown, Provider [id number] 158 (IDB) complet ed influenza , injectabl e, quadrival ent, contains preservat gilda DoD influenza, seasonal, injectable 2012 zzLef t Arm [id number] 141 sanofi pasteur complet ed influenza , seasonal, injectabl e 03/15/13 Given Ambulat ory Pharmac y Influenza, seasonal, injectable 1 2012 Unknown, Provider [id number] 141 Sanofi Pasteur ([facility]) complet ed Influenza , seasonal, injectabl e DoD influenza, seasonal, injectable 2011 zzLef t Arm [id number] 141 sanofi pasteur complet ed influenza , seasonal, injectabl e 03/24/12 Given Ambulat ory Pharmac y tetanus, diphtheria, acellular pertu is [facility] [id number] 115 GlaxoSm[employer] ny complet ed tetanus, diphtheri a, acellular pertussis 03/24/12 Given Ambulat ory Pharmac y tetanus toxoid, reduced diphtheria toxoid, and acellular pertu is vaccine, adsorbed 1 2011 Unknown, Provider [id number] 115 [facility] ([facility]) complet ed tetanus toxoid, reduced diphtheri a toxoid, and acellular pertussis vaccine, adsorbed DoD Influenza, seasonal, injectable 3 2011 Unknown, Provider [id number] 141 Sanofi Pasteur ([facility]) complet ed Influenza , seasonal, injectabl e DoD zoster vaccine live 2011 zzLef t Arm [id number] 121 Merck & Company Inc complet ed zoster vaccine live 02/22/12 Given Ambulat ory Pharmac y zoster vaccine, live 1 2011 Unknown, Provider [id number] Merck (MSD) complet ed zoster vaccine, live DoD influenza virus vaccine, whole virus 2002 zzLef t Arm [id number] 16 sanofi pasteur complet ed influenza virus vaccine, whole virus 02/09/03 Given Ambulat ory Pharmac y influenza virus vaccine, whole virus 1 2002 Unknown, Provider [id number] 16 Sanofi Pasteur ([facility]) complet ed influenza virus vaccine, whole virus DoD influenza virus vaccine, whole virus 2001 zzLef t Arm [id number] 16 sanofi pasteur complet ed influenza virus vaccine, whole virus 03/06/02 Given Ambulat ory Pharmac y tetanus-dipht h toxoids (Td) adult/adol 2001 zzLef t Arm [id number] 09 sanofi pasteur complet ed tetanus-d iphth toxoids (Td) adult/ado l 03/06/02 Given Ambulat ory Pharmac y tetanus and diphtheria toxoids, adsorbed, preservative free, for adult use (2 Lf of tetanus toxoid and 2 Lf of diphtheria toxoid) 1 2001 Unknown, Provider [id number] Sanofi Pasteur ([facility]) complet ed tetanus and diphtheri a toxoids, adsorbed, preservat gilda free, for adult use (2 Lf of tetanus toxoid and 2 Lf of diphtheri a toxoid) DoD influenza virus vaccine, whole virus 1 2001 Unknown, Provider [id number] 16 Sanofi Pasteur ([facility]) complet ed influenza virus vaccine, whole virus DoD Results Combined list of recent chemistry, hematology and other laboratory results from Department of Defense and Veterans Affairs, ranging from 15 months to all on record, depending upon the facility. Order Name Results Value Reference Range Date Interpretation Specimen Comments Source Chemistry Potassium Lvl 4.9 mmol/L 3.5 - 5.1 05/30 N 0055A-3 [facility] Chemistry Glucose Lvl 86 mg/dL 74 - 99 05/30 N 0055A-3 [facility] Chemistry Creatinine Level 1.10 mg/dL 0.57 - 1.11 05/30 N 0055A-3 [facility] CO2 24 mmol/L 22 - 29 05/30 N 0055A-3 75th [facility] Chloride 102 mmol/L 98 - 107 05/30 N 0055A-3 75th [facility] Alk Phos 93 U/L 40 - 150 05/30 N 0055A-3 75th [facility] [place] [facility] Albumin 2.90 g/dL 3.50 - 5.20 05/30 L 0055A-3 [facility]th [facility] [place] [facility] AGAP 11.00 0.00 - 15.00 05/30 N -[address] [place] [address] Chemistry Protein Total 6.6 g/dL 6.4 - 8.3 05/30 N -[address] [place] [address] Chemistry Sodium 137 mmol/L 136 - 145 05/30 N -[address] [place] [address] Chemistry ALT 19 U/L 5 - 55 05/30 N - [address] [place] [address] Chemistry Calcium 9.6 mg/dL 8.4 - 10.2 05/30 N - [address] [place] [address] Chemistry BUN/Creat Ratio 15 mg/dL 12 - 20 05/30 N - [address] [place] [address] Chemistry BUN 17 mg/dL 7 - 20 05/[address] [place] [address] Chemistry Bilirubin Total 0.4 mg/dL 0.2 - 1.2 05/[address] [place] [address] Chemistry AST 22 U/L 5 - 34 05/[address] [place] [address] Chemistry eGFR CKD EPI 53 mL/min /1.73_ [...] 15-29 Severe decrease <15 Kidney failure 0055A-[address] [place] [address] Hematology Eos Absolute 0.1 x10^3/ mcL 0.0 - 0.7103 03/18 N 0055A-[address] [place] [address] Hematology Baso Absolute 0.0 x10^3/ mcL 0.0 - 0.1103 03/18 N 0055A-[address] [place] [address] Hematology Basophil % Auto 0.4 % 0.0 - 2.5 03/18 N 0055A-[address] [place] [address] Hematology [place] Absolute 0.5 x10^3/ mcL 0.2 - 0.8103 03/18 N 0055A-[address] [place] [address] Hematology Monocyte % Auto 8 % 1 - 12 03/18 N 0055A-[address] [place] [address] Hematology Lymphocyte % Auto 30.2 % 20.0 - 40.0 03/18 N 0055A-[address] [place] [address] Hematology Lymph Absolute 1.7 x10^3/ mcL 1.2 - 4.0103 03/18 N 0055A-[address] [place] [address] Hematology Eosinophil % Auto 2 % 0 - 5 03/18 N 0055A-[address] [place] [address] Hematology Neutrophil % Auto 58.4 % 46.0 - 77.0 03/18 N 0055A-[address] [place] [address] Hematology Neutro Absolute 3.2 x10^3/ mcL 2.0 - 7.0103 03/18 N 0055A-[address] [place] [address] Chemistry eGFR CKD EPI 59 mL/min /1.73_ [...] if better accuracy is needed for clinical decision-mrina ing. eGFR (mL/min/1.73 m2) CKD stage Interpretati on Normal 60-89 Mild decrease 45-59 Mild to moderate decrease 30-44 Moderate to severe decrease 15-29 Severe decrease <15 Kidney failure 0055A-[address] [place] [address] Hematology RDW 13.2 % 11.0 - 14.9 03/18 N 0055A-[address] [place] [address] Hematology Platelets 262.0 x10^3/ mcL 150.0 - 450.0103 03/18 N 0055A-[address] [place] [address] Hematology RBC 3.9 x10^6/ mcL 3.6 - 5.0106 03/18 N 0055A-[address] [place] [address] Hematology MPV 9.7 fL 7.4 - 10.4 03/18 N 0055A-[address] [place] [address] Hematology WBC 5.5 x10^3/ mcL 4.0 - 11.0103 03/18 N 0055A-[address] [place] [address] Hematology Hematocrit 35 % 34 - 46 03/18 N 0055A-[address] [place] [address] Hematology MCV 89 fL 80 - 97 03/18 N 0055A-[address] [place] [address] Hematology MCH 29 pg 28 - 33 03/18 N 0055A-[address] [place] [address] Hematology MCHC 32.8 g/dL 33.0 - 36.5 03/18 L 0055A-[address] [place] [address] Hematology Hemoglobin 11.4 g/dL 11.0 - 15.0 03/18 N 0055A-[address] [place] [address] Chemistry TSH 0.304 mIU/L 0.270 - 4.200 03/18 N Interpretive Data: Recommend: TPO/Thyroper oxidase Antibody when TSH result is > 4.2 uIU/mL 5600A-U [facility] Chemistry Albumin 4.10 g/dL 3.50 - 5.20 03/18 N 0055A-[address] [place] [address] Chemistry AGAP 9.00 0.00 - 15.00 03/18 N 0055A-[address] [place] [address] Chemistry Glucose Lvl 92 mg/dL 74 - 99 03/18 N 0055A-[address] [place] [address] Chemistry Creatinine Level 1.00 mg/dL 0.57 - 1.11 03/18 N 0055A-[address] [place] [address] Chemistry Potassium Lvl 4.5 mmol/L 3.5 - 5.1 03/18 N 0055A-[address] [place] [address] Chemistry Sodium 140 mmol/L 136 - 145 03/18 N 0055A-[address] [place] [address] Chemistry Phosphorus 3.3 mg/dL 2.3 - 4.7 03/18 N 0055A-[address] [place] [address] Chemistry BUN/Creat Ratio 28 mg/dL 12 - 03/18 H 0055A-[address] [place] [address] Chemistry BUN 28 mg/dL 7 - 20 03/18 H 0055A-[address] [place] [address] Chemistry Calcium 10.4 mg/dL 8.4 - 10.2 03/18 H 0055A-[address] [place] [address] Chemistry CO2 25 mmol/L 22 - 29 03/[address] [place] [address] Chemistry Chloride 106 mmol/L 98 - 107 03/[address] [place] [address] Chemistry Hemoglobin A1c 5.4 % 4.0 - [...] diabetes. Because studies have repeatedly shown that lqj-af-odleq ol diabetes results in complication s from the disease, the goal for people with diabetes is a hemoglobin A1c less than 7%. The higher the hemoglobin A1c, the higher the risks of developing complication s related to diabetes. If confirmation is needed, consider recalling the patient and ordering Hemoglobin Electrophore sis. [address] [place] [address] Chemistry eAvg Glucose 108 mg/dL 03/[address] [place] [address] Chemistry HDL Cholesterol 66 mg/dL 40 - 59 03/18 H Interpretive Data: HDL (HIGH DENSITY LIPOPROTEIN) : ADULTS: Low: < 40 mg/dL High: >/= 60 mg/dL AGES 0 -19: Low: < 40 mg/dL Borderline Low: 40 - 45 mg/dL Acceptable: > 45 mg/dL [address] [place] [address] Chemistry LDL 87 mg/dL 100 - 130 03/18 L Interpretive Data: AGES 0-19: Desirable: < 110 mg/dL Borderline High: 110-129 mg/dL High: >/= 130 mg/dL ADULTS: Desirable: <100 mg/dL Near/above optimal: 100-130 mg/dL Borderline High: 131-159 mg/dL High: 160-189 mg/dL Very High: 190 mg/dL [address] [place] [address] Chemistry LDL/HDL 1 03/[address] [place] [address] Chemistry Triglycerid es 77 mg/dL 7 - 149 03/18 N Interpretive Data: AGES 0-9: Desirable: < 75 mg/dL Borderline High: 75-99 mg/dL High: >/= 100 mg/dL AGES 10-19: Desirable: < 90 mg/dL Borderline High: 90-129 mg/dL High: >/= 130 mg/dL ADULTS: Desirable: < 150 mg/dL Borderline High: 150-199 mg/dL High: >/= 240 mg/dL Very High: >/= 500 mg/dL - [facility] Chemistry Chol/HDL 3 mg/dL 03/[address] [place] [address]- [facility] Cholesterol Total 166 mg/dL 03/18 N Interpretive Data: According to the [place] [employer]: AGES 0-19: Desirable: < 170 mg/dL Borderline High: 170-199 mg/dL High Blood Cholesterol: >/= 200 mg/dL ADULTS: Desirable < 200 mg/dL Borderline High: 200-239 mg/dL High Blood Cholesterol: >/= 240 mg/dL [address] [place] [address] [facility] Vital Signs Combined list of inpatient and outpatient Vital Signs from Department of Defense and Veterans Affairs, ranging from 12 months to all on record, depending upon the facility. Vital Sign Value Date Comments Source Respiratory Rate 16 br/min 05/31/2023 14:13:00 [facility]55C[facility] Peripheral Pulse Rate 89 bpm 05/31/2023 14:13:00 [facility] Temperature Oral 36.6 Lynn 05/31/2023 14:13:00 [facility] BP Site Left arm 05/31/2023 14:13:00 0055C -[facility] Systolic Blood Pressure 117 mm[Hg] 05/31/2023 14:13:00 00[facility] Diastolic Blood Pressure 68 mm[Hg] 05/31/2023 14:13:00 [facility] Mean Arterial Pressure, Calc 84 mm[Hg] 05/31/2023 14:13:00 0055C-[facility] Blood Pressure Manual Automatic 05/31/2023 14:13:00 00[facility] Mean Arterial Pressure, Calc 104 mm[Hg] 04/05/2023 14:41:00 0055C-[facility] Systolic Blood Pressure 132 mm[Hg] 04/05/2023 14:41:00 [...] to the last 18 months, not all VA inpatient encounters are included; 2) Encounters from the Department of Defense facilities going backup to 280 months. Location Location Details Encounter Type Encounter Number Reason For Visit Attending Provider ADM Date DC Date Status Disposition Source [address] [place] [address]([facility] gege Practice Non-GME FHI1) OUTPATIENT [id number] AVERY Mckinley 03/12 Released w/o Limitations [address] [place] [address])(F amily Practic e Non-GME FHI1) [address] [place] [address])([facility] gege Practice Non-GME FHI1) TELE CONSULT [id number] AVERY CHAKRABORTY 03/[address] [place] [address])(F amily Practic e Non-GME FHI1) [address] [place] [address])([facility]) TELE CONSULT [id number] x-ray results REJI TRAN 03/[address] [place] [address])(F amily Practic e Non-GME FHI2) [address] [place] [address])([facility] Non-GME FHI2) OUTPATIENT [id number] f/u on tests TIBURCIO RODRÍGUEZ 04/08 Released w/o Limitations [address] [place] [address])(F amily Practic e Non-GME FHI2) [address] [place] [address])([facility] gege Practice Non-GME FHI1) TELE CONSULT [id number] PCM: Konrad Contact #: [phone] Pt request ing lab results REJI TRAN 07/[address] [place] [address])(F amily Practic e Non-GME FHI1) [address] [place] [address])([facility] Non-GME FHI2) TELE CONSULT [id number] Med refill - PCM REJI Magana 10/[address] [place] [address])(F amily Practic e Non-GME FHI2) [address] [place] [address])([facility] Non-GME FHI2) OUTPATIENT [id number] POSS INFECTI ON RT BIG TIBURCIO RODRÍGUEZ 01/21 Released w/o Limitations [address] [place] [address])(F amily Practic e Non-GME FHI2) [address] [place] [address])([facility] gege Practice Non-GME FHI1) OUTPATIENT [id number] annual physicTIBURCIO Karimi 04/06 Released w/o Limitations [address] [place] [address])(F amily Practic e Non-GME FHI1) [address] [place] [address])([facility] gege Practice Non-GME FHI2) OUTPATIENT [id number] PAIN IN KNEES ALEXA ZENDEJAS 04/20 Released w/o Limitations [address] [place] [address])(F amily Practic e Non-GME FHI2) [address] [place] [address])([facility] gege Practice Non-GME FHI2) TELE CONSULT [id number] xray results and f/u instruc tions-p er GILDA Ryan 04/[address] [place] [address])(F amily Practic e Non-GME FHI2) [address] [place] [address])([facility] gege Practice Non-GME FHI2) OUTPATIENT [id number] right knee pain AVERY CHAKRABORTY 09/21 Released w/o Limitations [address] [place] [address])(F amily Practic e Non-GME FHI2) [address] [place] [address])([facility] gege Practice Non-GME FHI1) TELE CONSULT [id number] [facility] - YENNI Hoff 11/[address] [place] [address])(F amily Practic e Non-GME FHI1) [address] [place] [address])([facility] gege Practice Non-GME FHI2) OUTPATIENT [id number] possibl e infecte d left toe DAY LANTIGUA 11/24 Released w/o Limitations [address] [place] [address])(F amily Practic e Non-GME FHI2) [address] [place] [address])([facility] gege Practice Non-GME FHI1) TELE CONSULT [id number] hand written script - REJI Magana 01/[address] [place] [address])(F amily Practic e Non-GME FHI1) [employer] ([facility])(Fam gege Practice Non-GME FHI2) OUTPATIENT [id number] med treview TIBURCIO RODRÍGUEZ 03/07 Released w/o Limitations [employer] ([facility])(F amily Practic e Non-GME FHI2) [facility] [employer] ([facility])(Phy sical Therapy) OUTPATIENT [id number] joint pain, localiz ed in the knee NISHA FRAZIER 03/08 Released w/o Limitations [employer] ([facility])(P hysical Therapy ) [facility] [employer] ([facility])(Fam gege Practice Non-GME FHI2) OUTPATIENT [id number] f/u labs TIBURCIO RODRÍGUEZ 03/18 Released w/o Limitations [facility] [employer] ([facility])(F amily Practic e Non-GME FHI2) [facility] [employer] ([facility])(Phy sical Therapy) OUTPATIENT [id number] NISHA FRAZIER 03/18 Released w/o Limitations [employer] ([facility])(P hysical Therapy ) [facility] [employer] ([facility])(Phy sical Therapy) OUTPATIENT [id number] NISHA FRAZIER 04/11 Released w/o Limitations [address] [place] [address] [employer] ([facility])(P hysical Therapy ) [facility] [employer] ([facility])(Fam gege Practice Non-GME FHI2) TELE CONSULT [id number] PCM: Konrad, med issues, [phone] REJI TRAN 07/07 [facility] [employer] ([facility])(F amily Practic e Non-GME FHI2) [facility] [employer] ([facility])(Fam gege Practice Non-GME FHI2) OUTPATIENT [id number] med review ELENO MTZ 07/21 Released w/o Limitations [facility] [employer] ([facility])(F amily Practic e Non-GME FHI2) [facility] [employer] ([facility])(Fam gege Practice Non-GME FHI1) TELE CONSULT [id number] Lab work-REJI Viramontes 07/[address] [place] [address])(F amily Practic e Non-GME FHI1) [address] [place] [address])([facility] gege Practice Non-GME FHI1) TELE CONSULT [id number] Test Results /Mammo order - REJI Valentin 08/[address] [place] [address])(F amily Practic e Non-GME FHI1) [address] [place] [address])([facility] gege Practice Non-GME FHI2) OUTPATIENT [id number] eye issues VINCENT LANG 09/25 Released w/o Limitations [address] [place] [address])(F amily Practic e Non-GME FHI2) [address] [place] [address])([facility] gege Practice Non-GME FHI2) TELE CONSULT [id number] Referra l - GILDA Yarbrough 10/[address] [place] [address])(F amily Practic e Non-GME FHI2) [address] [place] [address])([facility] gege Practice Non-GME FHI2) TELE CONSULT [id number] referra l brandyio ns/conc avis- LONI Sommers 10/[address] [place] [address])(F amily Practic e Non-GME FHI2) [address] [place] [address])([facility] gege Practice Non-GME FHI2) TELE CONSULT [id number] call back/ol son MARCREJI 11/[address] [place] [address])(F amily Practic e Non-GME FHI2) [address] [place] [address])([facility] gege Practice Non-GME FHI1) OUTPATIENT [id number] poss uti- DAY Grover 12/01 Released w/o Limitations [address] [place] [address])(F amily Practic e Non-GME FHI1) [address] [place] [address])([facility] gege Practice Non-GME FHI2) TELE CONSULT [id number] lab results -- LONI Sommers P 02/[address] [place] [address])(F amily Practic e Non-GME FHI2) [address] [place] [address])([facility] Non-[facility]ME FHI2) TELE CONSULT [id number] call back today/o LONI Baker P 02/[address] [place] [address])(F amily Practic e Non-GME FHI2) [address] [place] [address])([facility] Non-GME FHI2) OUTPATIENT [id number] annual appt for thyroid , cholest FLORES Garcia 03/07 Released w/o Limitations [address] [place] [address])(F amily Practic e Non-GME FHI2) [address] [place] [address])([facility] gege Practice Non-GME FHI1) TELE CONSULT [id number] renew referra l/LONI Sommers P 04/[address] [place] [address])(F amily Practic e Non-GME FHI1) [address] [place] [address])([facility] Non-GME FHI1) TELE CONSULT [id number] test-Ol LONI Farnsworth P 04/[address] [place] [address])(F amily Practic e Non-GME FHI1) [address] [place] [address])([facility] Non-GME FHI2) OUTPATIENT [id number] pap FLORES RODRÍGUEZ 05/09 Released w/o Limitations [address] [place] [address])(F amily Practic e Non-GME FHI2) [address] [place] [address])(Fam gege Med Tm B Non-AD BCC) TELE CONSULT [id number] Lab results -- LONI Sommers P 06/[address] [place] [address])(F amily Med Tm B Non-AD BCC) [address] [place] [address])(Fam gege Med Tm B Non-AD BCC) OUTPATIENT [id number] disloca darwin pinky toe on right foot for two days [id number] FLORES RODRÍGUEZ 09/24 Released w/o Limitations [facility] [employer] ([facility])(F amily Med Tm B Non-AD BCC) [facility] [employer] ([facility])(Fam gege Med Tm B Non-AD BCC) OUTPATIENT [id number] f/u fractur e FLORES RODRÍGUEZ 10/15 Released w/o Limitations [facility] [employer] ([facility])(F amily Med Tm B Non-AD BCC) [address] [place] [address] [employer] ([facility])(Fam gege Med Tm B Non-AD BCC) TELE CONSULT [id number] Rad Review FLORES RODRÍGUEZ 10/[address] [place] [address] [employer] ([facility])(F amily Med Tm B Non-AD BCC) [address] [place] [address] [employer] ([facility])(Fam gege Med Tm B Non-AD BCC) TELE CONSULT [id number] Konrad/deena turpin wording fixed on refer l AALIYAH DELUCA 10/[address] [place] [address] [facility] [employer] ([facility])(F amily Med Tm B Non-AD BCC) [address] [place] [address] [employer] ([facility])(Fam gege Med Tm B Non-AD BCC) OUTPATIENT [id number] COUGH AND LOSS OF VOICE [phone] ELENO MTZ 11/13 Released w/o Limitations [address] [place] [address] [facility] [employer] ([facility])(F amily Med Tm B Non-AD BCC) [address] [place] [address] [employer] ([facility])(Fam gege Med Tm B Non-AD BCC) TELE CONSULT [id number] Lab Review AALIYAH DELUCA 11/[address] [place] [address] [employer] ([facility])(F amily Med Tm B Non-AD BCC) [address] [place] [address] [employer] ([facility])(Fam gege Med Tm B Non-AD BCC) TELE CONSULT [id number] AALIYAH DELUCA 12/[address] [place] [address] [employer] ([facility])(F amily Med Tm B Non-AD BCC) [address] [place] [address] [employer] ([facility])(Sco tt Internal Medicine Tm) OUTPATIENT [id number] intial patient appoint ment STEVE PATTERSON 12/28 Released w/o Limitations [address] [place] [address] [employer] ([facility])(S cott Interna l Medicin e Tm) [address] [place] [address] [facility])([facility] Internal Medicine ) TELE CONSULT [id number] Lab/Rad Results STEVE PATTERSON 02/[address] [place] [address] [facility])(S cott Interna l Medicin e Tm) [address] [place] [address] [facility])([facility] Internal Medicine ) TELE CONSULT [id number] Rx Refill DALLAS EM E 02/[address] [place] [address] [facility])(S cott Interna l Medicin e Tm) [address] [place] [address] [facility])([facility] Internal Medicine ) OUTPATIENT [id number] annual physica l STEVE PATTERSON 02/19 Released w/o Limitations [address] [place] [address] [facility])(S cott Interna l Medicin e Tm) [address] [place] [address] [facility])(Car diology ([facility])) OUTPATIENT [id number] EKG JOY OLIVA I 03/04 Released w/o Limitations [address] [place] [address] [facility])(C ardiolo gy ([facility])) [address] [place] [address] [facility])([facility] Internal Medicine ) TELE CONSULT [id number] Lab STEVE PATTERSON 05/[address] [place] [address] [facility])(S cott Interna l Medicin e Tm) [address] [place] [address] [facility])([facility] Internal Medicine ) OUTPATIENT [id number] [facility] labs and meds STEVE PATTERSON 06/10 Released w/o Limitations [address] [place] [address] [facility])(S cott Interna l Medicin e Tm) [facility] Medical [facility])([facility] Internal Medicine ) TELE CONSULT [id number] Labs STEVE PATTERSON 06/[address] [place] [address] [facility])(S cott Interna l Medicin e Tm) [address] [place] [address] [facility])([employer] ecology) OUTPATIENT [id number] Vaginal pain with interco urse. BRYSON COTTO 06/21 Released w/o Limitations [address] [place] [address] [employer] ([facility])(G ynecolo gy) [facility] ([facility])([facility] Internal Medicine ) OUTPATIENT [id number] f/u on gastron beck - [id number] STEVE PATTERSON 08/20 Released w/o Limitations [facility] [employer] [facility] ([facility])(S cott Interna l Medicin e Tm) [facility] [employer] ([facility])([facility] Internal Medicine ) OUTPATIENT [id number] numbnes s on right side of lip/ton jaison - [id number] STEVE PATTERSON 11/22 Released w/o Limitations [employer] [facility] ([facility])(S cott Interna l Medicin e Tm) [facility] [employer] ([facility])([facility] Internal Medicine ) TELE CONSULT [id number] blood test LYDIA ORR 12/05 Referred for Appointment [facility] [employer] ([facility])(S cott Interna l Medicin e Tm) [facility])([facility] Internal Medicine ) TELE CONSULT [id number] fyi- gastro. surgery STEVE PATTERSON 01/14 [facility] ([facility])(S cott Interna l Medicin e Tm) [facility])([facility] Internal Medicine ) TELE CONSULT [id number] labs/ra ds ordered before appt. BRY MEYER 02/12 [facility] [employer] ([facility])(S cott Interna l Medicin e Tm) [facility] ([facility])([facility] Internal Medicine ) TELE CONSULT [id number] rx refill LYDIA ORR 02/24 Referred for Appointment [facility] [employer] ([facility])(S cott Interna l Medicin e Tm) [facility] [employer] ([facility])([facility] Internal Medicine ) OUTPATIENT [id number] follow up with pcm/med s/anual physicBRY Bellamy 03/12 Released w/o Limitations [facility]S cott Interna l Medicin e Tm) [facility])([facility] Internal Medicine ) TELE CONSULT [id number] LYDIA Sorensen 05/29 Referred for Appointment [facility])(S cott Interna l Medicin e Tm) [address] [place] [address] [facility])([facility] Internal Medicine ) TELE CONSULT [id number] LYDIA Del Toro 06/17 [facility])(S cott Interna l Medicin e Tm) [facility] Medical [facility])([facility] Internal Medicine ) TELE CONSULT [id number] LYDIA Murrieta 06/19 [facility])(S cott Interna l Medicin e Tm) [address] [place] [address] [facility])([facility] Internal Medicine ) TELE CONSULT [id number] LYDIA Fiore 06/23 [facility])(S cott Interna l Medicin e Tm) [facility])([facility] Internal [facility]) OUTPATIENT [id number] Matthew jamison for TKR (surger y Jul 07) CAROLYNN PEÑA CPT 06/25 Released w/o Limitations [facility])(S cott Interna l Medicin e Tm) [facility] Medical [facility])([facility] Internal Medicine ) TELE CONSULT [id number] lab results AUGUSTUS ANDERSON 07/04 Referred for Appointment [facility])(S cott Interna l Medicin e Tm) [facility])([facility] Internal Medicine ) OUTPATIENT [id number] possibl e bronchi tis - [id number] [facility] VINNIE PITTS 09/01 Released w/o Limitations [facility])(S cott Interna l Medicin e Tm) [address] [place] [address] [facility])([facility] Internal Medicine ) TELE CONSULT [id number] please send patient a leter and the lab results RENEE URIARTE 09/04 Referred for Appointment [facility])(S cott Interna l Medicin e Tm) [address] [place] [address] [facility])([facility] Internal Medicine ) TELE CONSULT [id number] Lab work request -Jean Claude ray/[id number]/ EM Soriano 02/[address] [place] [address] [facility])(S cott Interna l Medicin e Tm) [address] [place] [address] [facility])([facility] Internal Medicine ) OUTPATIENT [id number] physica l [phone] STEVE PATTERSON 03/09 Released w/o Limitations [address] [place] [address] [facility])(S cott Interna l Medicin e Tm) [address] [place] [address] [facility])([facility] Res Tm Green) OUTPATIENT [id number] Screeni ng c-scope /2nd floor JANE Morocho 04/20 Released w/o Limitations [address] [place] [address] [facility])([facility] Fam Res Tm Green) [address] [place] [address] [facility])([facility] FAMRES Tm Blue) TELE CONSULT [id number] Call back C-scope on by PATRICIA Horne 04/[address] [place] [address] [facility])([facility] FAMRES Tm Blue) [address] [place] [address] [facility])([facility] Internal Medicine ) OUTPATIENT [id number] dizzine ss, face redness since Wednesday afterno on [phone] STEVE PATTERSON 05/25 Released w/o Limitations [address] [place] [address] [facility])(S cott Interna l Medicin e Tm) [address] [place] [address] [facility])([facility] Internal Medicine ) TELE CONSULT [id number] lab results EM HAYNES 05/[address] [place] [address] [facility])(S cott Interna l Medicin e Tm) [address] [place] [address] [facility])([facility] Internal Medicine ) TELE CONSULT [id number] Notes Entered by: José PILLAI 09 Jun 2011 1523 ------- ------- ------- ------- -- Med refill EM HAYNES 06/[address] [place] [address])(S cott Interna l Medicin e Tm) [address] [place] [address])([facility] Internal Medicine ) TELE CONSULT [id number] Notes Entered by: José PILLAI 17 Jun 2011 1051 ------- ------- ------- ------- -- Concern s about test and fyi EM HAYNES 06/[address] [place] [address])(S cott Interna l Medicin e Tm) [address] [place] [address])([facility] Internal Medicine ) TELE CONSULT [id number] EM HAYNES 06/[address] [place] [address])(S cott Interna l Medicin e Tm) [address] [place] [address])([facility] Internal Medicine ) TELE CONSULT [id number] Notes Entered by: YUE SANDOVAL 29 Jun 2011 1622 ------- ------- ------- ------- -- lab STEVE PATTERSON 06/[address] [place] [address])(S cott Interna l Medicin e Tm) [address] [place] [address])([facility] Internal Medicine ) TELE CONSULT [id number] Notes Entered by: YUE SANDOVAL 02 Jul 2011 1107 ------- ------- ------- ------- -- Urine results EM HAYNES 07/[address] [place] [address])(S cott Interna l Medicin e Tm) [address] [place] [address])([facility] Internal Medicine ) TELE CONSULT [id number] Notes Entered by: YUE SANDOVAL 16 Jul 2011 1205 ------- ------- ------- ------- -- Urine test EM HAYNES 07/[address] [place] [address])(S cott Interna l Medicin e Tm) [address] [place] [address] [facility])([facility] Fam Res Tm Green) OUTPATIENT [id number] 2nd floor dawson rganados/JANE Rivas 07/27 Released w/o Limitations [address] [place] [address] [facility] ([facility]S cott [facility] Green) [address] [place] [address] [facility] FAMRES Tm Blue) TELE CONSULT [id number] Call Back for C-Scope on 28 Jul 2011 - PATRICIA Maloney 07/[address] [place] [address] [facility] ([facility])([facility] FAMRES Tm Blue) [address] [place] [address] [facility])([facility] Internal Medicine ) TELE CONSULT [id number] Notes Entered by: José PILLAI 30 Jul 2011 1430 ------- ------- ------- ------- -- Notes to the nurse EM HAYNES 07/[address] [place] [address] [facility])(S cott Interna l Medicin e Tm) [address] [place] [address] [facility])([facility] Internal Medicine Tm) OUTPATIENT [id number] pain in left knee and both hips [id number] STEVE PATTERSON 11/02 Released w/o Limitations [address] [place] [address] [facility])(S cott Interna l Medicin e Tm) [address] [place] [address] [facility])([facility] Tm) TELE CONSULT [id number] Notes Entered by: JOSIAS CASTELLANOS 17 Nov 2011 1545 ------- ------- ------- ------- -- EM Meyers 11/[address] [place] [address] [facility])(S cott Interna l Medicin e Tm) [address] [place] [address] [facility] Tm) TELE CONSULT [id number] Notes Entered by: ANNITA COWAN 20 Nov 2011 0925 ------- ------- ------- ------- -- Renew EM Edge 11/[address] [place] [address])(S cott Interna l Medicin e Tm) [address] [place] [address])([facility] Internal Medicine ) TELE CONSULT [id number] Notes Entered by: TEOFILO LAY 02 Dec 2011 1228 ------- ------- ------- ------- -- Network Results - Orthope dics 11/16/11 STEVE PATTERSON 12/[address] [place] [address])(S cott Interna l Medicin e Tm) [address] [place] [address])([facility] Internal Medicine ) TELE CONSULT [id number] Notes Entered by: DIAZ BROWN 11 Dec 2011 1512 ------- ------- ------- ------- -- Network results - Ophthal mology 2 STEVE PATTERSON 12/[address] [place] [address])(S cott Interna l Medicin e Tm) [address] [place] [address])([facility] Internal Medicine ) TELE CONSULT [id number] Notes Entered by: JORDEN ISABEL 07 Jan 2012 0657 ------- ------- ------- ------- -- Pt would like acute - [facility] - [id number] [address] [place] [address]* LYDIA ORR 01/[address] [place] [address])(S cott Interna l Medicin e Tm) [address] [place] [address])([facility] Internal Medicine ) OUTPATIENT [id number] Diarrhe a x 11 days ANDRES BARLOW 01/07 Released w/o Limitations [address] [place] [address])(S cott Interna l Medicin e Tm) [address] [place] [address])([facility] Internal Medicine ) TELE CONSULT [id number] Notes Entered by: ONESIMO BROOKS CIA 14 Jan 2012 1125 ------- ------- ------- ------- -- Gregor barlow - [facility] LYDIA ORR 01/[address] [place] [address])(S cott Interna l Medicin e Tm) [address] [place] [address])([facility] Internal Medicine ) TELE CONSULT [id number] Notes Entered by: DIAZ BROWN 15 Jan 2012 1307 ------- ------- ------- ------- -- Network results - [facility] 2 STEVE PATTERSON 01/[address] [place] [address])(S cott Interna l Medicin e Tm) [address] [place] [address])([facility] Internal Medicine ) TELE CONSULT [id number] Notes Entered by: ONESIMO BROOKS CIA 21 Jan 2012 1315 ------- ------- ------- ------- -- Durga barrientos (she saw Barlow) EM HAYNES 01/[address] [place] [address])(S cott Interna l Medicin e Tm) [address] [place] [address])([facility] Internal Medicine ) TELE CONSULT [id number] Notes Entered by: KRISTINE ORTIZ 09 Feb 2012 1145 ------- ------- ------- ------- -- Lab orders/ Kevin barrientos/[phone] CHAYITO SETHI 02/[address] [place] [address])(S cott Interna l Medicin e Tm) [address] [place] [address])([facility] Internal Medicine ) OUTPATIENT [id number] general physica l and med med renewal [id number] STEVE PATTERSON 02/21 Released w/o Limitations [address] [place] [address])(S cott Interna l Medicin e Tm) [address] [place] [address])([facility] Internal Medicine ) TELE CONSULT [id number] Notes Entered by: YUE SANDOVAL 24 Feb 2012 0721 ------- ------- ------- ------- -- YOUSIF Kemp 02/23 Referred for Appointment [address] [place] [address])(S cott Interna l Medicin e Tm) [address] [place] [address])([facility] Internal Medicine ) TELE CONSULT [id number] Notes Entered by: AMBER LEROY 18 Mar 2012 0836 ------- ------- ------- ------- -- Network Results - GASTROE NTEROLO GY MAR 09 ANDRSE BARLOW 03/[address] [place] [address])(S cott Interna l Medicin e Tm) [address] [place] [address])([facility] Internal Medicine ) TELE CONSULT [id number] Notes Entered by: José PILLAI 18 Nov 2012 0943 ------- ------- ------- ------- -- Durga chatterjee/ appt on 11/25/19 13 MAGEN CORDERO 11/[address] [place] [address])(S cott Interna l Medicin e Tm) [address] [place] [address])([facility] Internal Medicine ) OUTPATIENT [id number] Joint pain meds JONAH ORR 01/12 Released w/o Limitations [address] [place] [address])(S cott Interna l Medicin e Tm) [address] [place] [address])([facility] Internal Medicine ) TELE CONSULT [id number] Notes Entered by: Chuy ROR 17 Jan 2013 1521 ------- ------- ------- ------- -- Radiolo gy results LONI MCLEOD 01/17 Referred for Appointment [address] [place] [address])(S cott Interna l Medicin e Tm) [address] [place] [address])([facility] Internal Medicine ) TELE CONSULT [id number] Notes Entered by: DIAZ BROWN 19 Jan 2013 1429 ------- ------- ------- ------- -- Network results - Ophthal mology - 3 JONAH ORR 01/[address] [place] [address])(S cott Interna l Medicin e Tm) [address] [place] [address])([facility] Internal Medicine ) TELE CONSULT [id number] Notes Entered by: FABIAN MIKE 30 Jan 2013 1109 ------- ------- ------- ------- -- Durga estrella/ Santhosh/ (natacha colunga message ) LYDIA ORR 01/[address] [place] [address])(S cott Interna l Medicin e Tm) [address] [place] [address])([facility] Internal Medicine ) TELE CONSULT [id number] Notes Entered by: JOSIAS CASTELLANOS 01 Feb 2013 1343 ------- ------- ------- ------- -- Xray results durga [phone] JESSICA KENNEDY 02/[address] [place] [address])(S cott Interna l Medicin e Tm) [address] [place] [address])([facility] Internal Medicine ) TELE CONSULT [id number] Notes Entered by: DIAZ BROWN 08 Feb 2013 1022 ------- ------- ------- ------- -- Network results Physica l Therapy 3 JONAH ORR 02/[address] [place] [address])(S cott Interna l Medicin e Tm) [address] [place] [address])([facility] Internal Medicine ) TELE CONSULT [id number] Notes Entered by: TEOFILO LAY 08 Feb 2013 1211 ------- ------- ------- ------- -- Network Results - Orthope dics JONAH ORR 02/[address] [place] [address])(S cott Interna l Medicin e Tm) [address] [place] [address])([facility] Internal Medicine ) TELE CONSULT [id number] Notes Entered by: DIAZ BROWN 21 Feb 2013 1451 ------- ------- ------- ------- -- Network results - Ophthal mology JONAH ORR 02/[address] [place] [address])(S cott Interna l Medicin e Tm) [address] [place] [address])([facility] Internal Medicine ) OUTPATIENT [id number] medicat [facility] [id number] JONHA ORR 02/21 Released w/o Limitations [address] [place] [address])(S cott Interna l Medicin e Tm) [address] [place] [address])([facility] Internal Medicine ) TELE CONSULT [id number] Notes Entered by: DIAZ BROWN 07 Mar 2013 1404 ------- ------- ------- ------- -- Network results Physica l Therapy 3 JONAH ORR 03/[address] [place] [address])(S cott Interna l Medicin e Tm) [address] [place] [address])([facility] Internal Medicine ) TELE CONSULT [id number] Notes Entered by: DIAZ BROWN 13 Mar 2013 1537 ------- ------- ------- ------- -- Network results Physica l Therapy 3 JONAH ORR 03/[address] [place] [address])(S cott Interna l Medicin e Tm) [address] [place] [address])([facility] Internal Medicine ) OUTPATIENT [id number] annual check up/618. [phone] 5 JONAH ORR 03/15 Released w/o Limitations [address] [place] [address])(S cott Interna l Medicin e Tm) [address] [place] [address])([facility] Internal Medicine ) TELE CONSULT [id number] Notes Entered by: DIAZ BROWN 19 Apr 2013 0851 ------- ------- ------- ------- -- Network Results - Physica l Therapy 4 JONAH ORR 04/[address] [place] [address])(S cott Interna l Medicin e Tm) [address] [place] [address])([facility] Internal Medicine ) OUTPATIENT [id number] PAIN IN RIGHT ANKLE X TWO MONTHS [id number] JONAH ORR 08/24 Released w/o Limitations [address] [place] [address])(S cott Interna l Medicin e Tm) [address] [place] [address])([facility] Internal Medicine ) TELE CONSULT [id number] Notes Entered by: BOBBY GROSSMAN 11 Sep 2013 1511 ------- ------- ------- ------- -- Med refill/ santhosh/Parul [phone] RUBEN STEVENSON 09/[address] [place] [address])(S cott Interna l Medicin e Tm) [address] [place] [address])([facility] Internal Medicine ) TELE CONSULT [id number] Notes Entered by: TIBURCIO RETANA 16 Oct 2013 1325 ------- ------- ------- ------- -- Network results - Podiatr y - 014 JONAH ORR 10/[address] [place] [address] [facility])(S cott Interna l Medicin e Tm) [address] [place] [address] [facility])([facility] Internal Medicine ) TELE CONSULT [id number] Notes Entered by: JESSICA KENNEDY 23 Jan 2014 0836 ------- ------- ------- ------- -- RUBEN Trivedi 01/[address] [place] [address] [facility])(S cott Interna l Medicin e Tm) [address] [place] [address] [facility])([facility] Internal Medicine ) TELE CONSULT [id number] Notes Entered by: DIAZ BROWN 26 Jan 2014 1359 ------- ------- ------- ------- -- Network results Ophthal mology 4 JONAH ORR 01/[address] [place] [address] [facility])(S cott Interna l Medicin e Tm) [address] [place] [address] [facility])([facility] Internal Medicine ) TELE CONSULT [id number] Notes Entered by: DIAZ BROWN 21 Feb 2014 1048 ------- ------- ------- ------- -- Network results Ophthal mology 4 JONAH ORR 02/[address] [place] [address] [facility])(S cott Interna l Medicin e Tm) [address] [place] [address] [facility])([facility] gege Med B Non-AD BCC) TELE CONSULT [id number] Notes Entered by: SONNY CAAL 12 Mar 2014 0958 ------- ------- ------- ------- -- [facility] TYRON, TONY J 03/12 Other Not Elsewhere Classified [address] [place] [address] [facility])(F amily Med Tm B Non-AD BCC) [address] [place] [address] [facility])(Fam gege Med Tm B Non-AD BCC) OUTPATIENT [id number] annual check up [phone] ALEXA RODRIGUES 03/26 Released w/o Limitations [address] [place] [address])(F amily Med Tm B Non-AD BCC) [address] [place] [address])([facility] Internal Medicine ) OUTPATIENT [id number] annual check up//666 .1274 JONAH ORR 04/06 Released w/o Limitations [address] [place] [address])(S cott Interna l Medicin e Tm) [address] [place] [address])([facility] Internal Medicine ) TELE CONSULT [id number] Notes Entered by: Chuy ORR 18 Jun 2014 1621 ------- ------- ------- ------- -- Laborat ory results , hyperca lcemia, iatroge diamond hyperth RUBEN Kent 06/[address] [place] [address])(S cott Interna l Medicin e Tm) [address] [place] [address])([facility] Internal Medicine ) TELE CONSULT [id number] Notes Entered by: Chuy ORR 03 Sep 2014 1657 ------- ------- ------- ------- -- Laborat ory results , hyperth LYDIA Vargas 09/[address] [place] [address])(S cott Interna l Medicin e Tm) [address] [place] [address])([facility] Internal Medicine ) TELE CONSULT [id number] Notes Entered by: Chuy ORR 22 Oct 2014 0636 ------- ------- ------- ------- -- RUBEN Fisher 10/[address] [place] [address])(S cott Interna l Medicin e Tm) [address] [place] [address])([facility] Internal Medicine ) TELE CONSULT [id number] Notes Entered by: Chuy ORR 12 Jan 2015 1030 ------- ------- ------- ------- -- Laborat ory results RUBEN STEVENSON 01/[address] [place] [address])(S cott Interna l Medicin e Tm) [address] [place] [address])([facility] Internal Medicine ) TELE CONSULT [id number] Notes Entered by: MERLENE FRANKLIN 06 Mar 2015 1011 ------- ------- ------- ------- -- Request for Lab Order / Santhosh / [id number] CHELE PARDO 03/06 Referred for Appointment [address] [place] [address])(S cott Interna l Medicin e Tm) [address] [place] [address])([facility] Internal Medicine ) TELE CONSULT [id number] Notes Entered by: Nelsy MOE 27 Mar 2015 1442 ------- ------- ------- ------- -- Med refill/ Santhosh/6 [phone] RUBEN STEVENSON 03/[address] [place] [address])(S cott Interna l Medicin e Tm) [address] [place] [address])([facility] Internal Medicine ) OUTPATIENT [id number] General check up / lab results / medicat ions [id number] JONAH ORR 03/31 Released w/o Limitations [address] [place] [address])(S cott Interna l Medicin e Tm) [address] [place] [address])([facility] Internal Medicine ) TELE CONSULT [id number] Notes Entered by: JORDEN ISABEL 24 Jun 2015 1035 ------- ------- ------- ------- -- Med refill - Santhosh - [phone] RUBEN STEVENSON 06/[address] [place] [address])(S cott Interna l Medicin e Tm) [address] [place] [address])([facility] Internal Medicine ) OUTPATIENT [id number] left foot vein [id number] JONAH ORR 09/04 Released w/o Limitations [address] [place] [address])(S cott Interna l Medicin e Tm) [address] [place] [address])([facility] Internal Medicine ) TELE CONSULT [id number] Notes Entered by: Koko AGUAYO 30 Oct 2015 1350 ------- ------- ------- ------- -- ER/Hosp italiza tion F/U Appt/ Santhosh / - RUBEN Dubois 10/[address] [place] [address])(S cott Interna l Medicin e Tm) [address] [place] [address])([facility] Internal Medicine ) OUTPATIENT [id number] F/U Hospita lizatio n, will request records JONAH ORR 11/18 Released w/o Limitations [address] [place] [address])(S cott Interna l Medicin e Tm) [address] [place] [address])([facility] Internal Medicine ) TELE CONSULT [id number] Notes Entered by: ANNY STORY 22 Nov 2015 1027 ------- ------- ------- ------- -- Network Results -CARDIO LOGY 09/17/15 ECHO SDG JONAH ORR 11/[address] [place] [address] [facility])(S cott Interna l Medicin e Tm) [address] [place] [address])([facility] Internal Medicine ) TELE CONSULT [id number] Notes Entered by: STEFANY WALTON 31 Mar 2016 0748 ------- ------- ------- ------- -- Lab sammi/Daniele royal/669. 2425/cl MIRANDA Argueta 03/31 Referred for Appointment [address] [place] [address])(S cott Interna l Medicin e Tm) [address] [place] [address])([facility] Internal Medicine ) OUTPATIENT [id number] Annual Check Up Med Renewal s [id number] JONAH ORR 04/06 Released w/o Limitations [address] [place] [address])(S cott Interna l Medicin e Tm) [address] [place] [address])([facility] [facility] ) TELE CONSULT [id number] Notes Entered by: TEOFILO LAY 20 Apr 2016 1412 ------- ------- ------- ------- -- Network Results OPHTHAL MOLOGY 04/07/16 [facility] JONAH ORR 04/[address] [place] [address])([facility] [address] [place] [address])([facility] ) TELE CONSULT [id number] Notes Entered by: Chuy ORR 25 Apr 2016 1115 ------- ------- ------- ------- -- Radiolo gy results RUBEN STEVENSON 04/[address] [place] [address])([facility] [address] [place] [address])([facility] ) TELE CONSULT [id number] Notes Entered by: Chuy ORR 08 May 20166 ------- ------- ------- ------- -- Radiolo gy results RUBEN STEVENSON 05/[address] [place] [address])([facility] [address] [place] [address])([facility] ) TELE CONSULT [id number] Notes Entered by: GUERDA HENDERSON 12 May 2016 0953 ------- ------- ------- ------- -- Network Results Radiolo gy 05/04/16 [facility] JONAH ORR 05/[address] [place] [address])([facility]) [address] [place] [address] [facility])([facility] ) OUTPATIENT [id number] F/U Memory/ Mood JONAH ORR 06/12 Released w/o Limitations [address] [place] [address])([facility] [address] [place] [address])([facility] ) TELE CONSULT [id number] Notes Entered by: Chuy ORR 12 Jun 2016 1637 ------- ------- ------- ------- -- Laborat ory results RUBEN STEVENSON 06/[address] [place] [address])([facility] [address] [place] [address])([facility] ) TELE CONSULT [id number] Notes Entered by: ELMER RUIZ D 19 Jan 2017 1453 ------- ------- ------- ------- -- Durga Salinas /Santhosh/ MIMI VERA 01/19 Referred for Appointment [address] [place] [address])([facility] [address] [place] [address])([facility] ) TELE CONSULT [id number] Notes Entered by: NIXON MOORE 08 Feb 2017 1320 ------- ------- ------- ------- -- Network Results Radiolo gy 7 MMM JONAH ORR 02/[address] [place] [address] [facility])([facility]) [address] [place] [address])([facility] ) TELE CONSULT [id number] Notes Entered by: Koko AGUAYO 11 Mar 2017 1053 ------- ------- ------- ------- -- Lab Test Request / Santhosh/ [id number] - LONI Packer 03/11 Referred for Appointment [address] [place] [address])([facility] [address] [place] [address])([facility] Tm) OUTPATIENT [id number] Annual and medical clearan SALVADOR Nelson 04/13 Released w/o Limitations [address] [place] [address])([facility]) [address] [place] [address])(Med ical In/Out Processin g) TELE CONSULT [id number] Notes Entered by: SHALINI QUIROGA 13 Apr 2017 1205 ------- ------- ------- ------- -- Alexander carlton Mammo in TS SHWETA QUIROGA 04/[address] [place] [address])(M edical In/Out Process ing) [address] [place] [address])([facility] Tm) OUTPATIENT [id number] Right eye catarac t surgery physic SALVADOR Shanks 05/26 Released w/o Limitations [address] [place] [address])([facility] [address] [place] [address])([facility] Tm) TELE CONSULT [id number] Notes Entered by: MERLENE FRANKLIN 05 Jul 2017 0955 ------- ------- ------- ------- -- Treatme nt after Lab Work / Maia / - sgj AUGUSTUS ROSENBERG 07/[address] [place] [address])([facility] [address] [place] [address])([facility] Tm) OUTPATIENT [id number] feeling lighthe aded, dizzine ss, low iron level LARISA ROGERS V 07/07 Released w/o Limitations [address] [place] [address])([facility]) [address] [place] [address])([facility] ) TELE CONSULT [id number] Notes Entered by: FUNMI ROGERS V 13 Jul 2017 1723 ------- ------- ------- ------- -- labs AUGUSTUS ROSENBERG 07/[address] [place] [address])([facility]) [address] [place] [address])([facility] ) TELE CONSULT [id number] Notes Entered by: KEYLA HARRINGTON 22 Jul 2017 1500 ------- ------- ------- ------- -- Lab Results MIRANDA PRADO 07/22 Referred for Appointment [address] [place] [address])([facility] [address] [place] [address])([facility] ) OUTPATIENT [id number] f/u on TSH abnorma l labs LARISA ROGERS V 10/05 Released w/o Limitations [address] [place] [address])([facility]) [address] [place] [address])([facility] ) TELE CONSULT [id number] Notes Entered by: AALIYAH GROSSMAN 15 Oct 2017 1313 ------- ------- ------- ------- -- 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 AALIYAH GROSSMAN 10/15 Medication Refill Forwarded [address] [place] [address])([facility] [address] [place] [address])([facility] ) TELE CONSULT [id number] Notes Entered by: JAVIER GRAVES 22 Oct 2017 0844 ------- ------- ------- ------- -- Physici an request ed T-CON for Network Results - Otolary ngology (ENT) 018 AMANDA JARRELL 10/[address] [place] [address])([facility] [address] [place] [address])([facility] ) TELE CONSULT [id number] Notes Entered by: SALVADOR FLORES 25 Nov 2017 1247 ------- ------- ------- ------- -- TSH results RUBEN STEVENSON 11/25 Referred for Appointment [address] [place] [address])([facility]) [address] [place] [address])([facility] ) OUTPATIENT [id number] VITRUAL TSH result [id number] SALVADOR FLORES 12/13 Released w/o Limitations [address] [place] [address])([facility] [address] [place] [address])([facility] ) TELE CONSULT [id number] Notes Entered by: SALVADOR FLORES 08 Feb 2018 0719 ------- ------- ------- ------- -- TSH results RUBEN STEVENSON 02/08 Other Not Elsewhere Classified [address] [place] [address])([facility] [address] [place] [address])([facility] ) TELE CONSULT [id number] Notes Entered by: DIANA BARBOZA 14 Mar 2018 1158 ------- ------- ------- ------- -- Lab Request /Tomasa / RUBEN STEVENSON 03/14 Referred for Appointment [address] [place] [address])([facility] [address] [place] [address])([facility] ) TELE CONSULT [id number] Notes Entered by: SONNY CAAL 15 Mar 2018 1053 ------- ------- ------- ------- -- Order maribell - Tomasa - RUBEN Stafford 03/15 Other Not Elsewhere Classified [facility])([facility]) [address] [place] [address] [facility])([facility] ) OUTPATIENT [id number] annual check up AMANDA JARRELL 04/06 Released w/o Limitations [address] [place] [address] [facility])([facility]) [address] [place] [address])([facility] ) TELE CONSULT [id number] Notes Entered by: RUBEN STEVENSON 30 Dec 2018 1352 ------- ------- ------- ------- -- PossibRUBEN Bergman 12/30 Referred for Appointment [address] [place] [address] [facility])([facility]) [address] [place] [address])([facility] ) TELE CONSULT [id number] Notes Entered by: STEFANY WALTON 20 Mar 2019 1225 ------- ------- ------- ------- -- Charla Kilgore/Maribel robins/6 [phone]. [phone]/RUBEN Moore 03/20 Other Not Elsewhere Classified [facility])([facility]) [address] [place] [address] [facility] ) OUTPATIENT [id number] annual checkup / JESSICA RAMOS 04/11 Released w/o Limitations [address] [place] [address] Group [employer] ([facility]) [address] [place], [place] [id number])([facility] ) TELE CONSULT [id number] Notes Entered by: SONNY CAAL 02 May 2019 0953 ------- ------- ------- ------- -- Rx renewal - [facility] s - - tsg KIRTRUBEN AUGUSTINE Koko 05/02 Medication Refill Forwarded [address] [place] [address])([facility]) [address] [place] [address])([facility] ) TELE CONSULT [id number] Notes Entered by: NUNO RICHARDSON 05 Jul 2019 1159 ------- ------- ------- ------- -- SX-pain ful and frequen t urinati on/ [phone] MIRANDA Elizalde 07/04 Referred for Appointment [address] [place] [address])([facility] [address] [place] [address])([facility] ) OUTPATIENT [id number] Notes Entered by: MARAL LANDIS 06 Jul 2019 1134 ------- ------- ------- ------- -- f/u UTI symptom s/labs JAIDEN SAL 07/05 Released w/o Limitations [address] [place] [address])([facility] [address] [place] [address])([facility] ) TELE CONSULT [id number] Notes Entered by: YANELI BOSE ON BARRERA 02 Nov 2019 1443 ------- ------- ------- ------- -- Network Results CARDIOL OGY 0 JESSICA RAMOS 11/[address] [place] [address])([facility] [address] [place] [address])([facility] ) TELE CONSULT [id number] Notes Entered by: YANELI BOSE ON BARRERA 13 Feb 2020 1509 ------- ------- ------- ------- -- Network Results OPTOMET RY 0 JESSICA RAMOS 02/[address] [place] [address])([facility]) [address] [place] [address])([facility] ) TELE CONSULT [id number] Notes Entered by: MERLENE FRANKLIN 13 Mar 2020 1352 ------- ------- ------- ------- -- Lab Order Request - Appt Feb / Carlos / - sgLONI Guzman 03/13 Other Not Elsewhere Classified [address] [place] [address])([facility] [address] [place] [address])([facility] ) OUTPATIENT [id number] Virtual Appt - annual check up/medi cations /lab results - [id number] JESSICA RAMOS 03/28 Released w/o Limitations [address] [place] [address])([facility] [address] [place] [address])([facility] ) TELE CONSULT [id number] Notes Entered by: BARRY ESTRADA 04 Sep 2020 141 ------- ------- ------- ------- -- Med Renewal Request / Carlos - RUBEN Dubois 09/04 Medication Refill Forwarded [address] [place] [address])([facility] [address] [place] [address])([facility] ) TELE CONSULT [id number] Notes Entered by: CHRISTINA REED 15 Jan 2021 1207 ------- ------- ------- ------- -- Annual Appt Request CHRISTINA REED 01/15 Referred for Appointment [address] [place] [address])([facility] [address] [place] [address])([facility] ) OUTPATIENT [id number] F2F annual appoint ment (labs ordered ) JESSICA RAMOS 03/13 Released w/o Limitations [address] [place] [address])([facility] [address] [place] [address])([facility] ) TELE CONSULT [id number] Notes Entered by: BARRY ESTRADA A 04 Apr 2021 1431 ------- ------- ------- ------- -- Med Renewal Issues / Carlos granados/ RUBEN STEVENSON 04/04 Medication Refill Forwarded [address] [place] [address])([facility] [address] [place] [address])([facility] ) TELE CONSULT [id number] Notes Entered by: KALANI PARK 16 Feb 2022 1521 ------- ------- ------- ------- -- NOTIFIC ATIONS OF MEDICAL RECORD UPLOADE ELÍAS HUBER 02/[address] [place] [address])([facility] [address] [place] [address])([facility] ) TELE CONSULT [id number] Notes Entered by: BARRY ESTRADA A 02 Mar 2022 1513 ------- ------- ------- ------- -- Annual Lab Test Request / Oscar/ GAURI HICKS 03/02 Other Not Elsewhere Classified [address] [place] [address])([facility] [address] [place] [address])([facility] ) OUTPATIENT [id number] F2F - Anual Exam - ELÍAS MOORE 03/31 Released w/o Limitations [address] [place] [address] [facility]) [address] [place] [address] [facility])([facility] ) TELE CONSULT [id number] Notes Entered by: Sumit SHIRLEY 14 Apr 2022 1044 ------- ------- ------- ------- -- RX Issue Needs Renewed /Oscar/ GAURI HICKS 04/14 Medication Refill Forwarded [address] [place] [address] [facility]) [address] [place] [address] [facility])([facility] ) TELE CONSULT [id number] Notes Entered by: Rona MOORE 16 Apr 2022 1108 ------- ------- ------- ------- -- CT Bone Density Results ELÍAS MOORE 04/[address] [place] [address] [facility]) 0055C-375 th [facility] Between Visit [id number] [facility] er for issue of repeat prescri ption 09/16 Discharge Disposition: Home or Self Care 0055C-[address] Procedures Combined list of: 1) Procedures from Department of Veterans Affairs facilities going back up to thelast 18 months, not all VA non-surgical procedures are included; 2) All procedures from the Department of Defense facilities. Procedure Procedure Type Code Date Perfomer Comments Sourc e TELE ASSESS & MGT SRV PROV QUAL NONPHYS HLTH CARE PRO TO EST PAT,PARENT,GUARD NOT ORIG REL ASSESS & MGT SRV PROV W/IN PREV 7 DAYS NOR LEAD ASSESS & MGT SRV/PX W/IN NXT 24 HR/SOON APT;5-10 MIN MED DIS 04/04 DoD TELE ASSESS & MGT SRV PROV QUAL NONPHYS HLTH CARE PRO TO EST PAT,PARENT,GUARD NOT ORIG REL ASSESS & MGT SRV PROV W/IN PREV 7 DAYS NOR LEAD ASSESS & MGT SRV/PX W/IN NXT 24 HR/SOON APT;5-10 MIN MED DIS 03/15 DoD TELE ASSESS & MGT SRV PROV QUAL NONPHYS HLTH CARE PRO TO EST PAT,PARENT,GUARD NOT ORIG REL ASSESS & MGT SRV PROV W/IN PREV 7 DAYS NOR LEAD ASSESS & MGT SRV/PX W/IN NXT 24 HR/SOON APT;5-10 MIN MED DIS 03/14 DoD ONLINE ASSESS &MANAG SERV PROVIDE,A QUAL NONPHYS HCP TO AN ESTABLISHED PAT/GUARDIAN,NOT ORIGINAT FRM RELAT ASSESS &MANAG SERV PROVIDE W/IN THE PREV 7 DAYS,USE THE INTERNET/SIMILAR [employer] 12/14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
== END 2024-07-18 11:23 | disposition home or self-care (01) ==
LOC: ANHLAB 11:24
PROVIDERS: PCP Internal Medicine; Visit Provider Internal Medicine Endocrinology, Diabetes & Metabolism
DX: R73.09 Other abnormal glucose (principal); M81.0 Age-related osteoporosis without current pathological fracture
CPT/HCPCS: 36415; 80048; 83036

== ENCOUNTER 2025-01-24 13:15 | Outpatient (CLI) | payer MEDICARE, OTHER, SELFPAY ==
--- OUTSIDE RECORDS SUMMARY | 2020-03-15 03:11 | XMS_ITS | Continuity of Care Document ---
Author Organization [facility] Address [address] Oscar Sierra [address] [place] [phone] Phone Care Team Providers Care Director Of Litigation Name Role Phone Bora Rebolledo MD Unavailable Unavailable Allergies, Adverse Reactions, Alerts Substance Reaction Status Criticality sulfanilamide Active No Information CEPHALEXIN MONOHYDRATE Active No In formation POTASSIUM CLAVULANATE Active No Inf ormation AMOXICILLIN TRIHYDRATE Active No In formation Medications Medication Instructions Dosage Effective Dates (start - stop) Status Comments clindamycin HCl 300 mg capsule take 2 capsule (600MG) by mouth1 hour before procedure - Active ZOLOFT (unknown strength) Not Available - Active SYNTHROID (unknown strength) Not Available - Active LIPITOR (unknown strength) take 1 tablet by oral route every day Not Available - Active ZYRTEC (unknown strength) Not Available - Active aspirin 81 mg chewable tablet chew 1 tablet by oral route every day 81 MG - Active clindamycin HCl 300 mg capsule take 2 capsule (600MG) by mouth1 hour before procedure - No Longer Active Procedures Procedure Date RADEX KNE 1/2 VIEWS OFFICE/OUTPATIENT VISIT EST X-RAY EXAM HIP UNI W PELVIS 2-3 VIEWS De OFFICE/OUTPATIENT VISIT EST RADEX KNE 1/2 VIEWS OFFICE/OUTPATIENT VISIT EST RADEX KNE 1/2 VIEWS POSTOP FOLLOW-UP VISIT POSTOP FOLLOW-UP VISIT RADEX KNE 1/2 VIEWS POSTOP FOLLOW-UP VISIT POSTOP FOLLOW-UP VISIT POSTOP FOLLOW-UP VISIT TOTAL KNEE ARTHROPLASTY RADEX KNE 3 VIEWS OFFICE/OUTPATIENT VISIT EST RADEX KNE 3 VIEWS OFFICE/OUTPATIENT VISIT EST RADEX KNE 3 VIEWS OFFICE/OUTPATIENT VISIT NEW MU Reporting OFFICE/OUTPATIENT VISIT EST MU Reporting OFFICE/OUTPATIENT VISIT EST Advance Directives Directive Yes / No Effective Date File Name No Information Encounters Encounter Description Practice Location Reason(s) For Visit Diagnoses Date Provider Providers Copied on Encounter [facility], [address], [place], [address], tel:[phone] [facility] No Information 0 Kesha Sahni. [address], [place], [place], [address]. tel:[phone] OFFICE/OUTPA TIENT VISIT EST [facility], [address], [place], [address], [place] tel:[phone] [facility] Status post total left knee replacement 0 Boxdorfer Candy. [address], [place], [place], [address]. tel:[phone] OFFICE/OUTPA TIENT VISIT EST [facility], [address], [place], [address], [place] tel:[phone] [facility] Right hip painBody mass index (BMI) 32.0-32.9, adultTrochanter ic bursitis of right hip 9 Boxdorfer Candy. [address], [place], [place], [address]. tel:[phone] OFFICE/OUTPA TIENT VISIT EST [facility], [address], [place], [address], [place] tel:[phone] [facility] Status post total left knee replacement 9 Boxdorfer Candy. [address], [place], [place], [address]. tel:[phone] [facility], [address] [address], [place], [address], [place] tel:[phone] [facility] Status post total left knee replacement 9 Kesha Sahni. [address], [place], [place], [address]. tel:[phone] [facility], [address], [place], [address], [place] tel:[phone] [facility] Status post total left knee replacementPrim jurgen osteoarthritis of left knee 9 Kesha Sahni. [address], [place], [place], [address]. tel:[phone] [facility], [address] [address], [place], [address], [place] tel:[phone] [facility] Status post total left knee replacement 9 Kesha Sahni. [address], [place], [place], [address]. tel:[phone] [facility], [address] [address], [place], [address], [place] tel:[phone] [facility] Status post total left knee replacementPrim jurgen osteoarthritis of left kneeBody mass index (BMI) 32.0-32.9, adult 9 Shobha Sahni. [address], [place], [place], [address]. tel:[phone] [facility], [address] [address], [place], [address], [place] tel:[phone] [facility] Status post total left knee replacement 9 Wilmandamilynn Gupta. [address], [place], [place], [address]. tel:[phone] [facility], [address] [address], [place], [address], [place] tel:[phone] [facility] Osteoarthritis of left knee, unspecified osteoarthritis type 8 Kesha Sahni. [address], [place], [place], [address]. tel:[phone] OFFICE/OUTPA TIENT VISIT EST [facility], [address], [place], [address], [place] tel:[phone] [facility] Osteoarthritis of left knee, unspecified osteoarthritis type 8 Boxdorfer Candy. [address], [place], [place], [address]. tel:[phone] OFFICE/OUTPA TIENT VISIT EST [facility], [address], [place], [address], [place] tel:[phone] [facility] Left knee pain, unspecified chronicityEssen tial (primary) hypertensionOst eoarthritis of left knee, unspecified osteoarthritis type 8 Boxdorfer Candy. [address], [place], [place], [address]. tel:[phone] OFFICE/OUTPA TIENT VISIT NEW [facility], [address], [place], [address], [place] tel:[phone] [facility] Left knee pain, unspecified chronicityBody mass index (BMI) 34.0-34.9, adultOsteoarthr itis of left knee, unspecified osteoarthritis type 7 Kesha Sahni. [address], [place], [place], [address]. tel:[phone] OFFICE/OUTPA TIENT VISIT EST [facility], [address], [place], [address], [place] tel:[phone] [facility] Enthesopathy of hip region 3 Kesha Sahni. [address], [place], [place], [address]. tel:[phone] Referring Provider: Efrain Argueta [address] [place], [address]. tel:[phone] OFFICE/OUTPA TIENT VISIT EST [facility], [address], [place], [address], [place] tel:[phone] [facility] bilateral hip pain (chief complaint) Enthesopathy of hip regionHypertens ion, Unspecified 0201 2 Kesha Sahni. [address], [place], [place], [address]. tel:[phone] Referring Provider: Efrian Argueta, [address] [place], [address]. tel:[phone] Family History Family Member Type Diagnosis Age At Onset Father Problem (finding) malignant neoplasm of [place] Sister Problem (finding) coronary arterioscleros is Mother Problem (finding) Diabetes mellitus Mother Problem (finding) Arthritis Sister Problem (finding) malignant neoplasm of luis martini Immunizations Vaccine Date Status Comments Pneumo (2 yrs or older)(PPV) administered Source: Other Provider Payers Payer name Insurance type Covered democrat ID Authoriza tion(s) Medicare E2 OT [id number] [place] [id number] Social History Type Description Quantity Date Captured Comments Sex Female Smoking Status No Information Chief Complaint And Reason For Visit No Information Reason For Referral Reason For Referral No Information Plan Of Treatment Date Type Action Status Referral Ordered: X-RAY EXAM HIP UNI W PELVIS 2-3 VIEWS RT hip ordered Referral Ordered: RADEX KNE 1/2 VIEWS LT knee ordered Referral Ordered: RADEX KNE 1/2 VIEWS LT ordered Referral Ordered: RADEX KNE 3 VIEWS LT ordered Referral Ordered: RADEX KNE 3 VIEWS LT knee ordered History Of Present Illness Encounter Date Complaint History Of Prese nt Illness No Information Functional Status Date Functional Assessmen t No Information Instructions Date Instruction Additional Infor mation Home exercise program. Related t o Trochanteric bursitis of right hip Apply moist heat or cold 20 min per hour. Related to Trochanteric bursitis of right hip Giving encouragement to exercise Related to Body mass index (BMI) 32.0-32.9, adult Home exercise program. Related t o Status post total left knee replacement Discussed treatment options Rela darwin to Status post total left knee replacement Giving encouragement to exercise Related to Body mass index (BMI) 32.0-32.9, adult Home exercise program. Related t o Osteoarthritis of left knee, unspecified osteoarthritis type Weight loss reduces stress on joints. Related to Osteoarthritis of left knee, unspecified osteoarthritis type Giving encouragement to exercise Related to Body mass index (BMI) 34.0-34.9, adult Home exercise program. Related t o Osteoarthritis of left knee, unspecified osteoarthritis type Weight loss reduces stress on joints. Related to Osteoarthritis of left knee, unspecified osteoarthritis type Take medication as directed. Rel ated to Left knee pain, unspecified chronicity Home exercise program. Related t o Left knee pain, unspecified chronicity ROM as tolerated Protective activity Fall risk home exerc ise program handout provided Home safety checklis t for fall hazards provided Assessments Type Assessment Date No Information Patient Care Teams Name Effective Dates (start - stop) Status Members No Information
[2025-01-24 14:26] LABS: Albumin Level 4.6 g/dL (3.5-5.1); Anion Gap 10 mmol/L (4-12); Blood Urea Nitrogen 28 mg/dL (7-17); Calcium 10.2 mg/dL (8.4-10.2); Carbon Dioxide 26 mmol/L (22-30); Chloride 100 mmol/L (98-107); Estimated Glomerular Filt Rate 32; Glucose 89 mg/dL (65-110); Potassium 4.2 mmol/L (3.4-5.0); Sodium 136 mmol/L (137-145)
--- OUTSIDE RECORDS SUMMARY | 2025-01-24 14:40 | XMS_ITS | Clinical Summary ---
Author Organization [facility] Address [address] [place] [id number] Care Team Providers Care Boots And Shoes Supervisor Name Role Phone Rufino Randolph MD Unavailable Marilee Carvalho MD Primary Care Provider [phone] Allergies Active Allergy Reactions Criticality Noted Date [...] EC tablet 3 Active cholecalciferol (VITAMIN D-3) 86557 unit capsule Take 1 capsule (10,000 Units [...] (05/13/2018): Added automatically from request for surgery [id number] Primary osteoarthritis of left knee 04/26/2018 Preop cardiovascular exam 04/15/2018 Essential hypertension 04/15/2018 Hyperlipidemia LDL goal <100 04/15/2018 Hypothyroidism 04/15/2018 Coronary artery disease invo lving [place] coronary artery of [place] heart without angina pectoris 04/15/2018 Resolved Problems [...] on file 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 Gender Identity Not on file Sexual Orientation Not on file Obstetrics History Last Filed Vital Signs Vital Sign Reading Time Taken Comments Blood Pressure 138/88 02/21/2024 11:12 AM HOB MACHINE 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 Pulse 72 02/21/2024 9:42 AM HOB MACHINE OPERATOR Temperature - - Respiratory Rate - - Oxygen Saturation 99% 02/21/2024 9:42 AM HOB MACHINE OPERATOR Inhaled Oxygen Concentration - - Weight 76.7 kg (169 lb) 02/21/2024 9:42 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 MACHINE 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 Height 154.9 cm (5' 1) 02/21/2024 9:42 AM HOB MACHINE OPERATOR Body Mass Index 31.93 02/21/2024 9:42 AM 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 MACHINE 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 Plan of Treatment Health Maintenance Due Date Last Done Comments Colon Cancer Screening-Colonoscopy 1950 Depression Screening 1950 Fall Risk Assessment 1950 Hepatitis C Screening 1949 Hepatitis B Screening 1967 Well Visit 65+ 2014 Covid-19 Vaccine (4 - 2024-2 6 season) 2024 02/17/2021, 05/29/2020, 05/01/2020 Influenza Vaccine (#1) 2024 , 01/16/2021, 01/09/2020, Additional history exists Osteoporosis Screening-Bone Density Scan 05/25/2026 05/25/2024 DTaP/Tdap/Td Vaccine (3 - Td or Tdap) 04/15/2032 04/15/2022, 03/24/2012, 03/06/2002 Pneumococcal vaccine 65+ Completed 10/19/2014, 03/30 Zoster Vaccine Completed 06/26/2020, 02/26, 02/22/2012 Insurance MEDICARE FOR LIFE MEDICARE FOR LIFE MEDICARE FOR LIFE MEDICARE FOR LIFE Care Teams Boots And Shoes Supervisor Relationship Specialty Start [place] [id number] [address] PCP - General Internal Medicine 06/19/24 Rufino Randolph MD Referring Physician Internal Medicine 12/13/17
--- OUTSIDE RECORDS SUMMARY | 2025-01-24 14:40 | XMS_ITS | Clinical Summary ---
Author Organization [facility] Address [address] [place] [address] Phone Care Team Providers Care Supervising Airplane Pilot Name Role Phone [facility], External Provider Primary Care Provider Un available Allergies Active Allergy Reactions Criticality Noted Date Comments Amoxicillin Rash Medium 04/14/2018 Cephalexin Rash 04/14/2018 Sulfa (Sulfonamide Antibiotics) Rash Medium 03/29 Medications sertraline (ZOLOFT) 100 mg tablet Take 100 mg by mouth daily with breakfast. Active levothyroxine 100 mcg tablet Take 100 mcg by mouth daily service specialist Takes on opposite days of 88 mcg dose . Active levothyroxine 88 mcg tablet Take 88 mcg by mouth daily service specialist Takes opposite days of 100mcg . Active atorvastatin (LIPITOR) 40 mg tablet Take 40 mg by mouth daily at bedtime. Active cetirizine (ZyrTEC) 10 mg tablet Take 10 mg by mouth daily at bedtime. Active fluticasone (FLONASE) 50 mcg/spray Shir[place], Suspension 2 Sprays by See Admin Instructions route see administration instructions Takes opposite days of fortical . Active calcitonin, Pitman, (FORTICAL) 200 unit/actuation Shirland, Non-Aerosol Administer 1 Shirland in each nostril see administration instructions Takes [...] times daily. 60 Tablet 9 10:35 AM AERIAL GUNNER 04/27/19 19 Active rivaroxaban (XARELTO) 10 mg TabletIndications: Primary osteoarthritis of left knee Take 1 Tablet (10 mg) by mouth daily. 21 Tablet 9 10:35 AM AERIAL GUNNER 04/27/19 19 Active HYDROcodone-acetam inophen (NORCO) 5-325 mg tabletIndications: Primary osteoarthritis of left knee Take 1 Tablet by mouth every 4 hours as needed for moderate pain. Max Daily Amount: 6 Tablets 42 Tablet 9 10:35 AM AERIAL GUNNER 04/27/19 19 Active Active Problems Problem Noted [...] Comments Blood Pressure 137/87 04/28/2018 8:05 AM AERIAL GUNNER Pulse 63 04/28/2018 8:05 AM AERIAL GUNNER Temperature 36.7 C (98.1 F) 04/28/2018 4:05 AM AERIAL GUNNER Respiratory Rate 16 04/28/2018 8:05 AM AERIAL GUNNER Oxygen Saturation 99% 04/28/2018 8:05 AM AERIAL GUNNER Inhaled Oxygen Concentration - - Weight 80.7 kg (178 lb) 04/26/2018 7:52 AM AERIAL GUNNER Height 156.2 cm (5' 1.5) 04/14/2018 9:51 AM AERIAL GUNNER Body Mass Index 33.09 04/14/2018 9:51 AM AERIAL GUNNER Plan of Treatment Health Maintenance Due Date Last Done Comments DTAP/TDAP/TD VACCINES (1 - Tdap) 1968 COLORECTAL SCREENING 1994 Colorectal Cancer Screening 1994 FIT-DNA Q 3 years 1994 FIT/FOBT Q 1 year 1994 Flex Sig/CT Colonography Q 5 years 1994 PNEUMOCOCCAL VACCINE 50+ YEARS (1 of 1 - PCV) 03/08/19 99 ZOSTER VACCINE (1 of 2) 1999 OSTEOPOROSIS SCREENING 2014 RSV VACCINE (60+ or ) (1 - 1-dose 75+ series) 2024 INFLUENZA VACCINE (#1) 2024 Medical Devices Implanted Type Area Foreign Language Interpreter Device Identifier Shelf Expiration Date Model / Serial / Lot Cement Depuy1 40grams 3312-040 - Snone Implanted:Qty : 1 on 04/26/2018 by Bora Rebolledo MD at [facility] Cement Left: Knee [employer] 07/26/2020 3312-040 / NONE / [id number] Description: REQ#[id number] Comp Tib Attn Fb Cmnt Sz3 1506-70-003 - Snone Implanted:Qty : 1 on 04/26/2018 by Bora Rebolledo MD at [facility] Knee Left: Knee [employer] 01/27/2028 [id number] / NONE / [id number] Description: Comp Fem Attn Cr Cmnt Sz4 1504-00-104 - Snone Implanted:Qty : 1 on 04/26/2018 by Bora Rebolledo MD at [facility] Knee Left: Knee [employer] 02/26/2028 [id number] / NONE / [id number] Description: Patella Attune Dome 32mm 1518-20-032 - Snone Implanted:Qty : 1 on 04/26/2018 by Bora Rebolledo MD at [facility] Knee Left: Knee [employer] 02/25/2023 [id number] / NONE / [id number] Description: Ins Attn Fb Cr Sz4 5mm 1516-20-405 - Snone Implanted:Qty : 1 on 04/26/2018 by Bora Rebolledo MD at [facility] Knee Left: Knee [employer] 09/25/2022 [id number] / NONE / [id number] Description: Knee Insurance MEDICARE PART A AND B FOR LIFE [employer] Advance Directives For more information, please contact: [phone] * Full Code (Latest Code Status on File) Date Activated Date Inactivated Comments 04/26/2018 4:26 PM 04/28/2018 2:11 PM Care Teams Supervising Airplane Pilot Relationship Specialty Start Date End Date [facility], External Provider [address] [place] [address] PCP - General 04/14/18
[2025-01-24 15:10] LABS: Thyroid Stimulating Hormone 2.380 uIU/mL (0.465-4.680)
== END 2025-01-24 13:16 | disposition home or self-care (01) ==
PROVIDERS: Visit Provider Internal Medicine Endocrinology, Diabetes & Metabolism
DX: E03.9 Hypothyroidism, unspecified (principal); R79.89 Other specified abnormal findings of blood chemistry; M81.0 Age-related osteoporosis without current pathological fracture
CPT/HCPCS: 36415; 80069; 82306; 84443